=== PATIENT | male | born 1955 | race Caucasian/White ===

== ENCOUNTER 2017-04-30 15:39 | Inpatient (IN) | payer SELFPAY ==
[~2017-04-30] VITALS: Ht 185.4 cm; Wt 123.3 kg
[2017-04-30 15:43] VITALS: BP 143/92; PULSE 83; RESP 20; TEMP 98.5; O2SAT 93
--- NOTE | 2017-04-30 16:46 | RADRPT ---
EXAM DATE/TIME: 04/30/2017 16:28 [place] COMPARISON: No previous studies available for comparison. INDICATIONS : Very short of breath, smoker, no chest surgery MEDICAL HISTORY : None. SURGICAL HISTORY : Tonsillectomy. ENCOUNTER: Initial ACUITY: 2 weeks PAIN SCORE: 0/10 LOCATION: Bilateral chest FINDINGS: Frontal and lateral views of the chest demonstrates cardiac silhouette size at the upper limits for n ormal. No effusion, consolidation, or pneumothorax is identified. There is interstitial prominence. B ones and soft tissues demonstrate no acute finding. There are mild degenerative changes of the thorac ic spine. CONCLUSION: No acute cardiopulmonary abnormality is identified. Manolo King MD on April 30, 2017 at 16:43 Board Certified Radiologist. This report was verified electronically.
[2017-04-30 17:26] LABS: BASOPHIL # 0.1 TH/MM3 (0-0.2); BASOPHIL % 0.6 % (0.0-2.0); EOSINOPHIL # 0.1 TH/MM3 (0-0.4); EOSINOPHIL % 0.9 % (0.0-4.0); HEMATOCRIT 51.4 % (39.0-51.0); HEMO FLAGS DIFF FINAL; LYMPH % 14.8 % (9.0-44.0); LYMPHOCYTE # 1.4 TH/MM3 (1.0-4.8); MEAN CELL VOLUME 88.2 FL (80.0-100.0); MEAN CORPUSCULAR HEMOGLOBIN 28.7 PG (27.0-34.0); MEAN CORPUSCULAR HGB CONC 32.5 % (32.0-36.0); MONO % 8.5 % (0.0-8.0); NEUT % 75.2 % (16.0-70.0); PLATELET COUNT 206 TH/MM3 (150-450); RED BLOOD COUNT 5.82 MIL/MM3 (4.50-5.90); RED CELL DISTRIBUTION WIDTH 15.6 % (11.6-17.2); WHITE BLOOD COUNT 9.4 TH/MM3 (4.0-11.0)
[2017-04-30 17:35] LABS: INTERNATIONAL NORMALIZED RATIO 1.2 RATIO; PROTHROMBIN TIME - PATIENT 12.9 SEC (9.8-11.6)
[2017-04-30 17:51] LABS: ANION GAP 8 MEQ/L (5-15); AST (GOT) 18 U/L (15-37); BICARBONATE 31.5 MEQ/L (21.0-32.0); BLOOD UREA NITROGEN 24 MG/DL (7-18); CHLORIDE 102 MEQ/L (98-107); POTASSIUM 3.6 MEQ/L (3.5-5.1); SODIUM (NA) 141 MEQ/L (136-145)
[2017-04-30 17:52] LABS: GLOMERULAR FILTRATION RATE 73 ML/MIN (>89)
[2017-04-30 17:56] LABS: ALKALINE PHOSPHATASE 87 U/L (45-117); ALT (GPT) 20 U/L (12-78); TOTAL BILIRUBIN ADULT 0.7 MG/DL (0.2-1.0)
[2017-04-30 17:59] LABS: CREATINE KINASE 84 U/L (39-308)
--- NOTE | 2017-04-30 18:26 | PD ---
HPI . Leg swelling Chief Complaint: Skin Problem Time Seen by Provider: 18:12 Travel History International Travel<30 days: No Contact w/Intl Traveler<30days: No Traveled to known affect area: No History of Present Illness HPI This patient presents with the chief complaint of pain and swelling of his left lower extremity. Onset was 3 weeks ago. He states that it started as a big blister on his left banks. He states that it felt like a burn so he thought that it was a burn. He treated it with antibiotic ointment. He has subsequently developed redness and swelling of the lower part of the left lower leg. He finally presented himself to an urgent care center today for evaluation. They instructed him to come to the emergency department for further evaluation. The pain is described as a burning sensation and is rated 8 /10. In addition, the patient has had increased lower extremity edema and shortness of breath for the last 2-3 weeks. The patient admits that he has been noncompliant with his blood pressure medication for about the last 5 months. He states that he just did not have the finances for the medication. [facility] Past Medical History Cardiovascular Problems: Yes (HTN) Triglycerides - High: Yes Social History Alcohol Use: No Tobacco Use: Yes (1 ppd) Substance Use: No Allergies-Medications (Allergen,Severity, Reaction): Coded Allergies: No Known Allergies (Unverified , 04/30/17) Reported Meds & Prescriptions Reported Meds & Active Scripts Active No Active Prescriptions or Reported Medications Review of Systems Except as stated in HPI: all other systems reviewed are Neg General / Constitutional: No: Fever, Chills Cardiovascular: No: Chest Pain or Discomfort Respiratory: Positive: Shortness of Breath Musculoskeletal: Positive: Edema Skin: Positive Change in Pigmentation Physical Exam Narrative GENERAL: Patient is awake and alert. He has dyspnea with speaking. SKIN: warm/dry. He has erythema, warmth and swelling of his left lower extremity. There is an area in the center of the erythema compatible with a recent blister. It is intact but it is now flat. HEAD: Normocephalic. Atraumatic. EYES: Pupils equal and round. No scleral icterus. No injection or drainage. ENT: No nasal bleeding or discharge. Mucous membranes pink and moist. NECK: Trachea midline. Full range of motion without pain.. CARDIOVASCULAR: Regular rate and rhythm. Heart sounds are normal. RESPIRATORY: No accessory muscle use. Diffuse expiratory wheezing.. Breath sounds equal bilaterally. GASTROINTESTINAL: Abdomen soft. Nontender. Bowel sounds present. Nondistended. MUSCULOSKELETAL: No obvious deformities. 2+ pretibial pitting edema. NEUROLOGICAL: Awake and alert. No obvious cranial nerve deficits. Motor grossly within normal limits. Normal speech. PSYCHIATRIC: Appropriate mood and affect; insight and judgment normal. Data Data Last Documented VS Vital Signs Date Time Temp Pulse Resp B/P (MAP) Pulse Ox O2 Delivery O2 Flow Rate FiO2 04/30/17 18:13 76 18 04/30/17 15:43 98.5 143/92 (109) 93 Room Air Orders Orders Complete Blood Count With Diff (04/30/17 16:08) Comprehensive Metabolic Panel (04/30/17 16:08) B-Type Natriuretic Peptide (04/30/17 16:08) Prothrombin Time / Inr (Pt) (04/30/17 16:08) Ckmb (Isoenzyme) Profile (04/30/17 16:08) Troponin I (04/30/17 16:08) Chest, Pa & Lat (04/30/17 16:08) Electrocardiogram (04/30/17 ) Clindamycin Inj (Cleocin Inj) (04/30/17 18:30) Heparin Infusion PILAR.Q1H (04/30/17 18:19) Heparin Inj (Heparin Inj) (04/30/17 18:30) Heparin Inj (Heparin Inj) (05/01/17 00:30) Heparin Inj (Heparin Inj) (05/01/17 00:30) Heparin-D5w 25,000 U/250 Ml (Heparin-D5w (04/30/17 18:30) Act Partial Throm Time (Ptt) (04/30/17 18:19) Cbc No Diff, Includes Plts (05/03/17 06:00) Act Partial Throm Time (Ptt) (05/01/17 01:19) Occult Blood (Hemoccult) Stool (04/30/17 18:19) Aspirin Chew (Aspirin Chew) (04/30/17 18:30) Metoprolol Succinate Er (Toprol Xl) (04/30/17 18:30) Nitroglycerin 2% Oint (Nitroglycerin 2% (04/30/17 18:30) Admit Order (Ed Use Only) (04/30/17 ) Service Team Leader / Telemetry PILAR.Q8H (04/30/17 18:32) Vital Signs (Adult) Q4H (04/30/17 18:32) Diet Npo (04/30/17 Dinner) Diet Heart Healthy (04/30/17 Dinner) Activity Oob With Assistance (04/30/17 18:32) Notify Dr: Other (04/30/17 18:32) Labs Laboratory Tests Test 04/30/17 17:00 04/30/17 18:33 White Blood Count 9.4 TH/MM3 Red Blood Count 5.82 MIL/MM3 Hemoglobin 16.7 GM/DL Hematocrit 51.4 % Mean Corpuscular Volume 88.2 FL Mean Corpuscular Hemoglobin 28.7 PG Mean Corpuscular Hemoglobin Concent 32.5 % Red Cell Distribution Width 15.6 % Platelet Count 206 TH/MM3 Mean Platelet Volume 8.6 FL Neutrophils (%) (Auto) 75.2 % Lymphocytes (%) (Auto) 14.8 % Monocytes (%) (Auto) 8.5 % Eosinophils (%) (Auto) 0.9 % Basophils (%) (Auto) 0.6 % Neutrophils # (Auto) 7.0 TH/MM3 Lymphocytes # (Auto) 1.4 TH/MM3 Monocytes # (Auto) 0.8 TH/MM3 Eosinophils # (Auto) 0.1 TH/MM3 Basophils # (Auto) 0.1 TH/MM3 CBC Comment DIFF FINAL Differential Comment Prothrombin Time 12.9 SEC Prothromb Time International Ratio 1.2 RATIO Blood Urea Nitrogen 24 MG/DL Creatinine 1.04 MG/DL Random Glucose 119 MG/DL Total Protein 6.5 GM/DL Albumin 2.7 GM/DL Calcium Level 8.6 MG/DL Alkaline Phosphatase 87 U/L Aspartate Amino Transf (AST/SGOT) 18 U/L Alanine Aminotransferase (ALT/SGPT) 20 U/L Total Bilirubin 0.7 MG/DL Sodium Level 141 MEQ/L Potassium Level 3.6 MEQ/L Chloride Level 102 MEQ/L Carbon Dioxide Level 31.5 MEQ/L Anion Gap 8 MEQ/L Estimat Glomerular Filtration Rate 73 ML/MIN Total Creatine Kinase 84 U/L Troponin I 0.27 NG/ML MDM Medical Decision Making Medical Screen Exam Complete: Yes Emergency Medical Condition: Yes Interpretation(s) EKG shows a sinus rhythm with no acute ST segment elevation or depression. Differential Diagnosis My differential diagnosis includes but is not limited to localized wound infection, cellulitis, abscess Differential diagnosis of dyspnea includes but is not limited to congestive heart failure, pneumonia, wheezing, pneumothorax, pulmonary embolism Narrative Course This patient presents with 2 problems. The first is redness and swelling of his left lower extremity. His second problem is dyspnea and lower extremity edema. Both of these problems have been ongoing for the last 2-3 weeks. Both have been getting progressively worse. CBC & BMP Diagram 04/30/17 17:00 Total Protein 6.5, Albumin 2.7 L, Calcium Level 8.6, Alkaline Phosphatase 87, Aspartate Amino Transf (AST/SGOT) 18, Alanine Aminotransferase (ALT/SGPT) 20, Total Bilirubin 0.7 trop 0.27 CK 84 I have ordered clindamycin for the cellulitis. I have given him aspirin and started a heparin drip. Oral metoprolol has been ordered as well as Nitropaste. Physician Communication Physician Communication Dr. Eduardo, cardiology, asks for heparin, aspirin, beta prema, nitro and admit to medicine with consult to cardiology. Diagnosis Primary Impression: Elevated troponin Additional Impressions: Dyspnea Qualified Codes: R06.00 - Dyspnea, unspecified Peripheral edema Cellulitis of left leg Admitting Information Admitting Physician Requests: Admit Scripts No Active Prescriptions or Reported Meds Condition: Stable Eli Cuhn MD Apr 30, 2017 18:26
[2017-04-30] MEDS ORDERED: METOPROLOL SUCCINATE 50 MG EXTENDED RELEASE TAB PO ONE (18:30)
[2017-04-30] MEDS ORDERED: HEPARIN-D5W 25,000 U/250 ML 250 ML IV PRN ×2 (18:30→19:45)
[2017-04-30] MEDS ORDERED: ASPIRIN 81 MG CHEW TAB CHEW ONE (18:30)
[2017-04-30] MEDS ORDERED: CLINDAMYCIN INJ 600 MG in SODIUM CHLORIDE 0.9% INJ 100 ML IV ONE (18:30)
[2017-04-30] MEDS ORDERED: NITROGLYCERIN 2% OINT 1 GM PACKET TOPICAL ONE (18:30)
[2017-04-30] MEDS ORDERED: HEPARIN SODIUM - IV 10,000 UNITS/10 ML VIAL IV PUSH ONE (18:30)
[2017-04-30 19:14] LABS: APTT (PATIENT) 26.9 SEC (24.3-30.1)
[2017-04-30] MEDS: HEPARIN SODIUM - IV 10,000 UNITS/10 ML VIAL IV PUSH PRN (19:47)
[2017-04-30 20:00] VITALS: BP 110/69; PULSE 78; RESP 22; TEMP 98.3; O2SAT 96
[2017-04-30] MEDS ORDERED: NALOXONE HCL 0.4 MG/ML AMP IV PUSH PRN (20:45)
[2017-04-30] MEDS ORDERED: SODIUM CHLORIDE 0.9% FLUSH 10 ML FLUSH IV FLUSH PRN (20:45)
[2017-04-30] MEDS: SODIUM CHLORIDE 0.9% FLUSH 10 ML FLUSH IV FLUSH SCH (21:00)
[2017-04-30 21:05] VITALS: PULSE 67
[2017-05-01] VITALS (10 sets, daily range): BP systolic 115–132; BP diastolic 67–96; PULSE 66–99; RESP 18–22; TEMP 97.4–98.3; O2SAT 91–97
[2017-05-01] MEDS ORDERED: HEPARIN SODIUM - IV 10,000 UNITS/10 ML VIAL IV PUSH PRN (00:30)
[2017-05-01 03:41] LABS: AUTOMATED NEUTROPHIL # 5.3 TH/MM3 (1.8-7.7); BASOPHIL # 0.1 TH/MM3 (0-0.2); BASOPHIL % 0.7 % (0.0-2.0); EOSINOPHIL # 0.1 TH/MM3 (0-0.4); EOSINOPHIL % 1.3 % (0.0-4.0); HEMO FLAGS DIFF FINAL; LYMPH % 19.6 % (9.0-44.0); LYMPHOCYTE # 1.5 TH/MM3 (1.0-4.8); MEAN CELL VOLUME 88.4 FL (80.0-100.0); MEAN CORPUSCULAR HEMOGLOBIN 29.3 PG (27.0-34.0); MEAN CORPUSCULAR HGB CONC 33.1 % (32.0-36.0); MONO % 10.7 % (0.0-8.0); NEUT % 67.7 % (16.0-70.0); PLATELET COUNT 205 TH/MM3 (150-450); RED BLOOD COUNT 5.66 MIL/MM3 (4.50-5.90); RED CELL DISTRIBUTION WIDTH 15.4 % (11.6-17.2); WHITE BLOOD COUNT 7.9 TH/MM3 (4.0-11.0)
[2017-05-01 04:10] LABS: BICARBONATE 30.5 MEQ/L (21.0-32.0); POTASSIUM 3.9 MEQ/L (3.5-5.1)
[2017-05-01] MEDS: HEPARIN SODIUM - IV 10,000 UNITS/10 ML VIAL IV PUSH PRN (04:23)
--- NOTE | 2017-05-01 08:21 | HHI.HP ---
[facility] Service [facility] Primary Care Physician No Primary Care Physician Admission Diagnosis elevated trop, dyspnea, peripheral edema, cellulitis LLE Diagnoses: (1) new onse CHF Diagnosis: Principal (2) Cellulitis of left leg Diagnosis: Principal (3) Elevated troponin Diagnosis: Principal Chief Complaint: Bilateral leg swelling with shortness of breath Travel History International Travel<30 Days: No Contact w/Intl Traveler <30 Da: No Traveled to Known Affected Are: No History of Present Illness Patient is a 61-year-old male obese nonsmoker for the past 40 years presented to the emergency room complaining complaining of 3 weeks duration of bilateral leg swelling. LATER noted a blister on the left lower leg which he described as some labeled with colorless clear fluid inside. Gradually with increasing redness around the area and progressed to the entire left lower extremity up to the ankle area. Patient also complains of decreased energy feeling shortness of breath with minimal activity. Persistence of above signs and symptoms prompted consult to an urgent care clinic where he was advised to come to the emergency room for further evaluation. Patient denies any chest pains. Patient denies any orthopnea. Denies any fever or chills. On evaluation exam shows extensive erythema of the left lower extremity with of 3" x 2" dry scab. Patient admitted for further evaluation and management. Review of Systems Constitutional: COMPLAINS OF: Weight gain (over the years) Endocrine: DENIES: Heat/cold intolerance, Polydipsia, Polyuria, Polyphagia Eyes: DENIES: Blurred vision, Diplopia, Eye inflammation, Eye pain, Vision loss , Photosensitivity, Double Vision Ears, nose, mouth, throat: DENIES: Tinnitus, Hearing loss, Vertigo, Nasal discharge, Oral lesions, Throat pain, Hoarseness, Ear Pain, Running Nose, Epistaxis, Sinus Pain, Toothache, Odynophagia Respiratory: COMPLAINS OF: Wheezing (feels occasional wheezing) Cardiovascular: COMPLAINS OF: Dyspnea on Exertion, Lower Extremity Edema Gastrointestinal: DENIES: Abdominal pain, Black stools, Bloody stools, Constipation, Diarrhea, Nausea, Vomiting, Difficulty Swallowing, Anorexia Genitourinary: DENIES: Sexual dysfunction, Urinary frequency, Urinary incontinence, Urgency, Hematuria, Dysuria, Nocturia, Penile Discharge, Testicular Pain, Testicular Swelling Musculoskeletal: DENIES: Joint pain, Muscle aches, Stiffness, Joint Swelling, Back pain, Neck pain Integumentary: DENIES: Abnormal pigmentation, Nail changes, Pruritus, Rash Hematologic/lymphatic: DENIES: Bruising, Lymphadenopathy Immunologic/allergic: DENIES: Eczema, Urticaria Neurologic: DENIES: Abnormal gait, Headache, Localized weakness, Paresthesias, Seizures, Speech Problems, Tremor, Poor Balance Psychiatric: DENIES: Anxiety, Confusion, Mood changes, Depression, Hallucinations, Agitation, Suicidal Ideation, Homicidal Ideation, Delusions Past Family Social History Past Medical History History of hypertension diagnosed about the 2 years ago. She was present medications sounds like hydrochlorothiazide/lisinopril but he stopped taking this for the past 6 months. Denies any history of CVA COPD COPD Past Surgical History Tonsillectomy Reported Medications At one point was on hydrochlorothiazide, lisinopril which he stopped taking for the past 6 months Allergies: Coded Allergies: No Known Allergies (Unverified , 04/30/17) Family History Denies any family history of hypertension, CVA, CAD, diabetes mellitus Social History Smoker one pack per day for the past 40 years Very rare alcohol use Denies any polysubstance abuse Physical Exam Vital Signs Vital Signs Date Time Temp Pulse Resp B/P (MAP) Pulse Ox O2 Delivery O2 Flow Rate FiO2 05/01/17 04:00 98.3 99 22 132/96 (108) 95 05/01/17 00:00 97.4 71 22 126/87 (100) 94 04/30/17 21:05 67 04/30/17 20:03 04/30/17 20:00 98.3 78 22 110/69 (83) 96 04/30/17 18:13 76 18 04/30/17 15:43 98.5 83 20 143/92 (109) 93 Room Air Physical Exam GENERAL: Obese in no apparent distress. HEAD: Atraumatic. Normocephalic. No temporal or scalp tenderness. EYES: Pupils equal round and reactive. Extraocular motions intact. No scleral icterus. No injection or drainage. ENT: Nose without bleeding,Throat without erythema, tonsillar hypertrophy or exudate. Uvula midline. Airway patent. NECK: Trachea midline. No JVD or lymphadenopathy. Supple, nontender, no meningeal signs. CARDIOVASCULAR: Regular rate and rhythm without murmurs, gallops, or rubs. RESPIRATORY bilateral breath sounds equal very occasional inspiratory wheeze, no Rales GASTROINTESTINAL: Abdomen soft, non-tender, nondistended. Positive umbilical hernia good bowel sounds, no scrotal hernia MUSCULOSKELETAL": Bilateral lower extremity edema +1 extending to the feet with erythema left lower extremity with 3" x 2" oval-shaped superficial wound with extensive surrounding erythema. +2 peripheral pulses EUROLOGICAL: Awake and alert. Cranial nerves II through XII intact. Motor and sensory grossly within normal limits. Five out of 5 muscle strength in all muscle groups. Normal speech. Laboratory Laboratory Tests Test 04/30/17 17:00 04/30/17 18:33 04/30/17 23:21 05/01/17 03:17 White Blood Count 9.4 7.9 Red Blood Count 5.82 5.66 Hemoglobin 16.7 16.5 Hematocrit 51.4 50.0 Mean Corpuscular Volume 88.2 88.4 Mean Corpuscular Hemoglobin 28.7 29.3 Mean Corpuscular Hemoglobin Concent 32.5 33.1 Red Cell Distribution Width 15.6 15.4 Platelet Count 206 205 Mean Platelet Volume 8.6 9.1 Neutrophils (%) (Auto) 75.2 67.7 Lymphocytes (%) (Auto) 14.8 19.6 Monocytes (%) (Auto) 8.5 10.7 Eosinophils (%) (Auto) 0.9 1.3 Basophils (%) (Auto) 0.6 0.7 Neutrophils # (Auto) 7.0 5.3 Lymphocytes # (Auto) 1.4 1.5 Monocytes # (Auto) 0.8 0.8 Eosinophils # (Auto) 0.1 0.1 Basophils # (Auto) 0.1 0.1 CBC Comment DIFF FINAL DIFF FINAL Differential Comment Prothrombin Time 12.9 Prothromb Time International Ratio 1.2 Blood Urea Nitrogen 24 31 Creatinine 1.04 0.84 Random Glucose 119 109 Total Protein 6.5 Albumin 2.7 Calcium Level 8.6 8.5 Alkaline Phosphatase 87 Aspartate Amino Transf (AST/SGOT) 18 Alanine Aminotransferase (ALT/SGPT) 20 Total Bilirubin 0.7 Sodium Level 141 141 Potassium Level 3.6 3.9 Chloride Level 102 103 Carbon Dioxide Level 31.5 30.5 Anion Gap 8 8 Estimat Glomerular Filtration Rate 73 94 Total Creatine Kinase 84 102 91 Troponin I 0.27 0.30 0.28 B-Type Natriuretic Peptide 919 Activated Partial Thromboplast Time 26.9 29.0 Result Diagram: 05/01/1731605/01/17316 Imaging Last Impressions Chest X-Ray 04/30/17 1608 Signed Impressions: Service Date/Time: Sunday, April 30, 2017 16:28 - CONCLUSION: No acute cardiopulmonary abnormality is identified. Manolo King MD 12-lead EKG shows sinus rhythm with diffuse ST-T wave changes nonspecific QS waves in V1 to V3, occasional PVC Septic Shock Reassessment Heart: Regular rate and rhythm Lungs: Clear Skin: Warm Peripheral Pulses: Bounding Right Radial Bounding Left Radial Bounding Right Popliteal Bounding Left Popliteal Bounding Right Dorsalis Pedis Bounding Left Dorsalis Pedis Bounding Right Posterior Tibial Bounding Left Posterior Tibial Capillary Refill: Brisk Caprini VTE Risk Assessment Caprini VTE Risk Assessment: Mod/High Risk (score >= 2) VTE [facility] Contraindication: LE injury/wound Caprini Risk Assessment Model Point Value = 1 Point Value = 2 Point Value = 3 Point Value = 5 Age 41-60 Minor surgery BMI > 25 kg/m2 Swollen legs Varicose veins or History of unexplained or recurrent spontaneous Oral contraceptives or hormone replacement Sepsis (< 1 month) Serious lung disease, including pneumonia (< 1 month) Abnormal pulmonary function Acute myocardial infarction Congestive heart failure (< 1 month) History of inflammatory bowel disease Medical patient at bed rest Age 61-74 Arthroscopic surgery Major open surgery (> 45 min) Laparoscopic surgery (> 45 min) Malignancy Confined to bed (> 72 hours) Immobilizing plaster cast Central venous access Age >= 75 History of VTE Family history of VTE Factor V Leiden Prothrombin [id number] Lupus anticoagulant Anticardiolipin antibodies Elevated serum homocysteine Heparin-induced thrombocytopenia Other congenital or acquired thrombophilia Stroke (< 1 month) Elective arthroplasty Hip, pelvis, or leg fracture Acute spinal cord injury (< 1 month) Prophylaxis Regimen Total Risk Factor Score Risk Level Prophylaxis Regimen 0-1 Low Early ambulation 2 Moderate Order ONE of the following: *Sequential Compression Device (SCD) *Heparin 5000 units SQ BID 3-4 Higher Order ONE of the following medications: *Heparin 5000 units SQ TID *Enoxaparin/Lovenox 40 mg SQ daily (WT < 150 kg, CrCl > 30 mL/min) *Enoxaparin/Lovenox 30 mg SQ daily (WT < 150 kg, CrCl > 10-29 mL/min) *Enoxaparin/Lovenox 30 mg SQ BID (WT < 150 kg, CrCl > 30 mL/min) AND/OR *Sequential Compression Device (SCD) 5 or more Highest Order ONE of the following medications: *Heparin 5000 units SQ TID (Preferred with Epidurals) *Enoxaparin/Lovenox 40 mg SQ daily (WT < 150 kg, CrCl > 30 mL/min) *Enoxaparin/Lovenox 30 mg SQ daily (WT < 150 kg, CrCl > 10-29 mL/min) *Enoxaparin/Lovenox 30 mg SQ BID (WT < 150 kg, CrCl > 30 mL/min) AND *Sequential Compression Device (SCD) Assessment and Plan Assessment and Plan 61-year-old male presenting with increasing shortness of breath for the past 3 weeks associated with bilateral lower extremity edema with elevated troponin, smoker Left lower extremity extensive cellulitis with dry open superficial wound Will start patient on cefazolin 2 g every 8 Will get infectious disease involved Wound care team consult Will need to control bilateral lower extremity edema New Onset CHF likely secondary to longstanding hypertension r/o underlying CAD Elevated troponin likely secondary to CHF r/o underlying CAD History of hypertension noncompliant with meds We'll get 2-D echo- Cardiology consult to rule out underlying CAD- will defer to them to proceed with myocardial perfusion study versus cardiac catheterization Will start patient on Lasix IV 40 mg every 12 Start patient on AYE inhibitor- Lisinopril 10 mg po daily Patient started on heparin drip.- Will change to Lovenox subcutaneous twice a day. Daily weights. start ASA. check lipid panel Underlying COPD- exacerbation- mild - maybe from CHF component with likely RLD with obesity duonebs q 4 check ABG- check for C02 retention continue on 02 2LNC Morbid obesity BMI of 36.4 Consult dietitian for nutrition counseling patient very motivated with exercise and weight reduction Discussed with patient extensively DVT prophylaxis on Lovenox for above. Discussed Condition With Full code Physician Certification 2 Midnight Certification Type: Admission for Inpatient Services Order for Inpatient Services The services are ordered in accordance with Medicare regulations or non- Medicare payer requirements, as applicable. In the case of services not specified as inpatient-only, they are appropriately provided as inpatient services in accordance with the 2-midnight benchmark. Estimated LOS (days): 3 days is the estimated time the patient will need to remain in the hospital, assuming treatment plan goals are met and no additional complications. Post-Hospital Plan: Marychuy Darby MD May 01, 2017 08:21
[2017-05-01] MEDS: SODIUM CHLORIDE 0.9% FLUSH 10 ML FLUSH IV FLUSH SCH ×2 (09:00→21:01)
[2017-05-01] MEDS: ASPIRIN 81 MG CHEW TAB CHEW SCH (09:00)
[2017-05-01 09:15] LABS: BLOOD GAS BASE EXCESS 5.8 mmol/L (-2-2); BLOOD GAS CARBOXYHEMOGLOBIN 2.5 % (0-4); BLOOD GAS HCO3 32 mmol/L (22-26); BLOOD GAS METHEMOGLOBIN 0.7 % (0-2); BLOOD GAS O2 HGB SATURATION 91 % (90-100); BLOOD GAS OXYGEN CONTENT 22.1 Vol % (12.0-20.0); BLOOD GAS PCO2 63 mmHg (38-42); BLOOD GAS PO2 80 mmHg (61-120); BLOOD GAS TOTAL HGB 17.3 G/DL (12.0-16.0); TEMP CORR TO 98.6
[2017-05-01] MEDS: RESP: ALBUTEROL 2.5 MG/IPRATROPIUM 0.5 MG NEB (SCH) NEB ×4 (09:15→19:31)
[2017-05-01 09:16] LABS: CRITICAL VALUE YES; DRAW SITE RT RADIAL; FIO2 28 %; LITER FLOW 2 L/M; NUMBER OF ARTERIAL PUNCTURES 1; OXYGEN DEVICE Y; STAT YES; ULNAR PULSE PRESENT
--- NOTE | 2017-05-01 09:30 | EKG ---
Date Performed: 05/01/2017 Time Performed: 05:14:24 PTAGE: 61 years EKG: Possible ectopic atrial rhythm with PVC(s) Prolonged QT interval Possible anteroseptal infa rct - age undetermined Lateral T wave changes may be due to myocardial ischemia Low QRS voltages in l imb leads Abnormal ECG PREVIOUS TRACING : 04/30/2017 22.38 DOCTOR: Osmar Simpson Interpretating Date/Time 05/01/2017 09:29:45
--- NOTE | 2017-05-01 09:38 | EKG ---
Date Performed: 04/30/2017 Time Performed: 22:38:18 PTAGE: 61 years EKG: Sinus rhythm WITH SHORT ME INTERVAL WITH OCCASIONAL VENTRICULAR PREMATURE COMPLEXES ANTEROSEPTAL MYOCARDIAL INFAR CTION , OF INDETERMINATE AGE ABNORMAL ECG PREVIOUS TRACING : 04/30/2017 18.26 DOCTOR: Osmar Simpson Interpretating Date/Time 05/01/2017 09:34:42
--- NOTE | 2017-05-01 09:47 | EKG ---
Date Performed: 04/30/2017 Time Performed: 18:26:02 PTAGE: 61 years EKG: ECTOPIC ATRIAL RHYTHM WITH FIRST DEGREE AV BLOCK POSSIBLE LEFT ATRIAL ENLARGEMENT LOW QRS V OLTAGE IN EXTREMITY LEADS ANTEROSEPTAL MYOCARDIAL INFARCTION ABNORMAL ECG NO PREVIOUS TRACING DOCTOR: Osmar Simpson Interpretating Date/Time 05/01/2017 09:46:27
--- NOTE | 2017-05-01 09:57 | MB ---
cc: NETO READ DATE OF CONSULTATION 05/01/2017 REASON FOR CONSULTATION Mr. Ying is a 61-year-old white male with a history of obesity, hypertension and smoking. He has had increased lower extremity edema, progressive dyspnea, PND and orthopnea over the last three weeks. He has not had any chest pain. He has no previous cardiac history. He has had left lower extremity wounds and erythema. He has not seen many doctors. PAST MEDICAL AND SURGICAL HISTORY 1. Hypertension. He was previously on hydrochlorothiazide and Lisinopril, but stopped taking the Lisinopril about seven months ago. 2. Tonsillectomy. 3. No history of diabetes mellitus, dyslipidemia, coronary disease or CVA. 4. History of morbid obesity. MEDICATIONS Hydrochlorothiazide ALLERGIES None SOCIAL HISTORY The patient is a smoker. He drinks alcohol infrequently, but when he drinks, he drinks heavily. He is accompanied by his female friend. FAMILY HISTORY Negative for heart disease. REVIEW OF SYSTEMS Otherwise negative. PHYSICAL EXAMINATION Blood pressure 115/81, pulse 73. HEAD, EYES, EARS, NOSE, AND THROAT: Negative. NECK: 2+ carotid upstrokes. No bruits. LUNGS: Decreased breath sounds bilaterally. HEART: Regular. No murmur, gallop or rub. Distant tones. ABDOMEN: Soft, very obese. No bruits. Positive umbilical hernia. EXTREMITIES: With 2+ pitting edema. There is left lower extremity edema. 1-2+ pulses noted. NEUROLOGIC: Grossly nonfocal. EKG was reviewed and showed a normal sinus rhythm, normal axis, poor R-wave progression in the pericardial leads and diffuse T-wave changes. LABORATORY DATA Hemoglobin 16.5, potassium 3.9, creatinine 0.8, troponin 0.27, 0.27, 0.30 and 4.28. BNP 919. DIAGNOSIS 1. Acute congestive heart failure 2. Mild troponin elevation 3. Morbid obesity 4. Noncompliance with medical care. 5. Hypertension DISPOSITION Mr. Ying will be monitored on telemetry. We will continue IV diuresis closely monitoring his renal function and electrolytes. We will obtain echocardiogram to evaluate his left ventricle function. He will be scheduled for adenosine myocardial perfusion study tomorrow to evaluate for ischemia. The plan was discussed with the patient and his friend. MD MAGUE Rodrigues/DJOsvaldo /9:37 AM /9:47 AM MTDPreet
[2017-05-01] MEDS: LISINOPRIL 10 MG TAB PO SCH (10:20)
[2017-05-01] MEDS: FUROSEMIDE 40 MG/4 ML VIAL IV PUSH SCH ×2 (10:21→18:27)
[2017-05-01] MEDS: ceFAZolin 2 GM PREMIX 50 ML IV SCH ×2 (10:26→18:26)
[2017-05-01] MEDS: ENOXAPARIN SODIUM 120 MG/0.8 ML SYRINGE SQ SCH ×2 (13:19→21:01)
--- NOTE | 2017-05-01 14:40 | PD.WCN.NOT ---
Wound Consult Description: Received consult from Doctor Burgess for wound management of L lower extremity Communicated with: NETTA maloney and Doctor Burgess Recommendation: Please leave scab on L lower extremity open to air Elevate bilateral lower extremities to reduce edema Additional Information: Patient seen on 4 north for evaluation of wound management of L lower extremity. Patient is observed laying in bed.Bilateral lower extremities present with edema R worse than L,and tight, shiny, hairless skin. L leg presents with dry intact scab that is without drainage.Periwound is without heat , and induration. Intact bulla is noted to periwound at 3 o'clock to periwound, that appears to be resolving. L leg is also noted with erythema that has decreased from line drawn on leg.Pedal pulses are non palpable bilaterally, NETTA Shaw heard with Doppler.Left scab and bulla on L lower extremity open to air. Recommendations are noted above. Audrey Gallardo [facility] May 01, 2017 14:40
--- NOTE | 2017-05-01 18:34 | PD.ID.CON ---
History of Present Illness Service ID Consult Requested By Dr Burgess Primary Care Physician No Primary Care Physician Diagnoses: History of Present Illness 61 yo obese male with chronic BLE edema presented with swollen, red tender LLE x 2 weeks He apparently has a blister on that extremety that is now drying out He stattes his swelling , redness improved He was found to have acute heart failure and now undergoing cardiological w/u He ia afebrile for the duration of admission and WBC is normal Receiving cefaoline Review of Systems Respiratory: COMPLAINS OF: Shortness of breath Cardiovascular: COMPLAINS OF: Dyspnea on Exertion, Lower Extremity Edema Except as stated in HPI: all other systems reviewed are Neg Past Family Social History Allergies: Coded Allergies: No Known Allergies (Unverified , 04/30/17) Past Medical History 1. Hypertension. He was previously on hydrochlorothiazide and Lisinopril, but stopped taking the Lisinopril about seven months ago. 2. morbid obesity. Past Surgical History Tonsillectomy. Active Ordered Medications Medications where reviewed in EMR Antibiotics Include: cefazoline Family History reviewd non contributory to sandrine irby Social History The patient is a smoker 1 PPD. He drinks alcohol infrequently, but when he drinks, he drinks heavily. NO illicits Physical Exam Vital Signs Vital Signs Date Time Temp Pulse Resp B/P (MAP) Pulse Ox O2 Delivery O2 Flow Rate FiO2 05/01/17 16:00 97.8 67 20 127/78 (94) 94 05/01/17 12:30 91 21 05/01/17 12:00 97.7 66 20 120/77 (91) 94 05/01/17 08:05 68 05/01/17 08:00 68 05/01/17 08:00 97.7 73 22 115/81 (92) 93 05/01/17 04:00 98.3 99 22 132/96 (108) 95 05/01/17 00:00 97.4 71 22 126/87 (100) 94 04/30/17 21:05 67 04/30/17 20:03 04/30/17 20:00 98.3 78 22 110/69 (83) 96 Physical Exam CONSTITUTIONAL/GENERAL: This is a obese middle aged male patient, in no apparent distress. TUBES/LINES/DRAINS: SKIN: No jaundice, rashes, or lesions. Skin temperature appropriate. Not diaphoretic. HEAD: Atraumatic. Normocephalic. EYES: Pupils equal and round and reactive. Extraocular motions intact. No scleral icterus. No injection or drainage. Fundi not examined. ENT: Hearing grossly normal. Nose without bleeding or purulent drainage. Oral mucosae without visible erythema, exudates, masses, or lesions. NECK: Trachea midline. Supple, nontender. No palpable thyroid enlargement or nodularity. CARDIOVASCULAR: Regular rate and rhythm without murmurs, gallops, or rubs. No JVD. Peripheral pulses symmetric. RESPIRATORY/CHEST: Symmetric, unlabored respirations. Clear to auscultation. Breath sounds equal bilaterally. No wheezes, rales, or rhonchi. GASTROINTESTINAL: Abdomen soft, non-tender, markedly distended. No hepato- splenomegaly, or palpable masses. No guarding. Bowel sounds present. GENITOURINARY: Without palpable bladder distension. MUSCULOSKELETAL: Extremities without clubbing, cyanosis, Marked BL LE edema more prominent on LLE + tree bark mars Dry crust over a shallow skin defect on L banks Resolving erythema . No joint tenderness or effusion noted. No calf tenderness. No mottling or clubbing. LYMPHATICS: No palpable cervical or supraclavicular adenopathy. NEUROLOGICAL: Awake and alert. Motor and sensory grossly within normal limits. Follows commands. Clear speech. Moves all extremities. PSYCHIATRIC: No obvious anxiety/depression. no apparent hallucinations or other psychotic thought process. Laboratory Laboratory Tests Test 04/30/17 23:21 05/01/17 03:17 05/01/17 09:05 Total Creatine Kinase 102 91 Troponin I 0.30 0.28 White Blood Count 7.9 Red Blood Count 5.66 Hemoglobin 16.5 Hematocrit 50.0 Mean Corpuscular Volume 88.4 Mean Corpuscular Hemoglobin 29.3 Mean Corpuscular Hemoglobin Concent 33.1 Red Cell Distribution Width 15.4 Platelet Count 205 Mean Platelet Volume 9.1 Neutrophils (%) (Auto) 67.7 Lymphocytes (%) (Auto) 19.6 Monocytes (%) (Auto) 10.7 Eosinophils (%) (Auto) 1.3 Basophils (%) (Auto) 0.7 Neutrophils # (Auto) 5.3 Lymphocytes # (Auto) 1.5 Monocytes # (Auto) 0.8 Eosinophils # (Auto) 0.1 Basophils # (Auto) 0.1 CBC Comment DIFF FINAL Differential Comment Activated Partial Thromboplast Time 29.0 Blood Urea Nitrogen 31 Creatinine 0.84 Random Glucose 109 Calcium Level 8.5 Sodium Level 141 Potassium Level 3.9 Chloride Level 103 Carbon Dioxide Level 30.5 Anion Gap 8 Estimat Glomerular Filtration Rate 94 Triglycerides Level 136 Cholesterol Level 163 LDL Cholesterol 97 HDL Cholesterol 39.0 Cholesterol/HDL Ratio 4.17 Blood Gas Puncture Site RT RADIAL Blood Gas Patient Temperature 98.6 Blood Gas HCO3 32 Blood Gas Base Excess 5.8 Blood Gas Oxygen Saturation 91 Arterial Blood pH 7.32 Arterial Blood Partial Pressure CO2 63 Arterial Blood Partial Pressure O2 80 Arterial Blood Oxygen Content 22.1 Arterial Blood Carboxyhemoglobin 2.5 Arterial Blood Methemoglobin 0.7 Blood Gas Hemoglobin 17.3 Oxygen Delivery Device Y Blood Gas Liter Flow 2 Blood Gas Inspired Oxygen 28 Result Diagram: 05/01/1731605/01/17316 Imaging Last Impressions Chest X-Ray 04/30/17 1608 Signed Impressions: Service Date/Time: Sunday, April 30, 2017 16:28 - CONCLUSION: No acute cardiopulmonary abnormality is identified. Manolo King MD Assessment and Plan Assessment and Plan LLE cellulits in the settings of BLE edema New onset CHF - cont Anncef - when ready for d/c will switch to oral abx (KJeflex) - MRSA coverae if fail to improve further/ worsning Rand Lnacaster MD May 01, 2017 18:33
--- NOTE | 2017-05-01 18:53 | ECHRPT ---
Indication: SOB CONCLUSIONS Moderately dilated left ventricle. Mild concentric left ventricular hypertrophy. The left ventricular systolic function is severely reduced with an estimated ejection fraction of 20 %. The right ventricular systoilc function is mildly decreased. BP: 115 / 81 HR: 73 Rhythm: MEASUREMENTS (Male / Female) Normal Values Technical Quality:Good 2D ECHO LV Diastolic Diameter PLAX 6.6 cm 4.2 - 5.9 / 3.9 - 5.3 cm LV Systolic Diameter PLAX 6.3 cm IVS Diastolic Thickness 1.4 cm 0.6 - 1.0 / 0.6 - 0.9 cm LVPW Diastolic Thickness 1.0 cm 0.6 - 1.0 / 0.6 - 0.9 cm LV Relative Wall Thickness 0.4 LA Systolic Diameter LX 4.9 cm 3.0 - 4.0 / 2.7 - 3.8 cm M-MODE Aortic Root Diameter MM 3.7 cm AV Cusp Separation MM 2.2 cm DOPPLER Mitral E Point Velocity 107.0 cm/s Mitral A Point Velocity 30.6 cm/s Mitral E to A Ratio 3.5 TR Peak Velocity 294.0 cm/s TR Peak Gradient 34.6 mmHg Right Atrial Pressure 20.0 mmHg Pulmonary Artery Systolic Pressu 54.6 mmHg Right Ventricular Systolic Press 54.6 mmHg FINDINGS LEFT VENTRICLE Moderately dilated left ventricle. Mild concentric left ventricular hypertrophy. The left ventricular systolic function is severely reduced with an estimated ejection fraction of 20 %. RIGHT VENTRICLE The right ventricular systoilc function is mildly decreased. LEFT ATRIUM The left atrial size is normal. RIGHT ATRIUM The right atrial size is normal. ATRIAL SEPTUM Normal atrial septal thickness without atrial level shunting by limited color doppler interrogation. AORTA The aortic root and proximal ascending aorta are normal in size on limited imaging. MITRAL VALVE Structurally normal mitral valve. No mitral valve stenosis or regurgitation. AORTIC VALVE Trileaflet aortic valve. No aortic valve stenosis or regurgitation. TRICUSPID VALVE Structurally normal tricuspid valve. No tricuspid valve stenosis or regurgitation. PULMONARY VALVE No pulmonary valve regurgitation or stenosis. VESSELS The inferior vena cava is normal in size. PERICARDIUM No pericardial effusion. Shelli Mandujano MD, FACC (Electronically Signed) Final Date:01 May 2017 18:53
[2017-05-02] VITALS (8 sets, daily range): BP systolic 118–150; BP diastolic 63–83; PULSE 70–80; RESP 14–24; TEMP 97.3–98.3; O2SAT 91–96
[2017-05-02] MEDS: ceFAZolin 2 GM PREMIX 50 ML IV SCH ×3 (02:24→17:41)
[2017-05-02] MEDS ORDERED: guaiFENesin SOLUTION 200 MG/10 ML CUP PO ONE (05:45)
[2017-05-02] MEDS ORDERED: RESP: ALBUTEROL 2.5 MG/IPRATROPIUM 0.5 MG NEB (PRN) NEB (05:45)
[2017-05-02] MEDS: RESP: ALBUTEROL 2.5 MG/IPRATROPIUM 0.5 MG NEB (SCH) NEB ×4 (08:56→19:48)
[2017-05-02] MEDS: ASPIRIN 81 MG CHEW TAB CHEW SCH (09:03)
[2017-05-02] MEDS: LISINOPRIL 10 MG TAB PO SCH (09:03)
[2017-05-02] MEDS: SODIUM CHLORIDE 0.9% FLUSH 10 ML FLUSH IV FLUSH SCH ×2 (09:04→21:00)
[2017-05-02] MEDS: FUROSEMIDE 40 MG/4 ML VIAL IV PUSH SCH ×2 (09:04→17:49)
--- NOTE | 2017-05-02 09:40 | HHI.PR ---
Subjective Remarks cough overnight- dry- dnies any fever or chills BP better controlled Objective Vitals Vital Signs Date Time Temp Pulse Resp B/P (MAP) Pulse Ox O2 Delivery O2 Flow Rate FiO2 05/02/17 08:00 97.3 76 14 138/63 (88) 94 05/02/17 04:17 97.8 70 18 118/73 (88) 96 05/02/17 04:00 Nasal Cannula 2.00 05/02/17 00:00 Nasal Cannula 2.00 05/01/17 23:19 97.8 69 18 119/75 (90) 95 05/01/17 20:00 Room Air 05/01/17 19:37 97.6 74 18 132/67 (88) 97 05/01/17 19:35 95 05/01/17 16:00 97.8 67 20 127/78 (94) 94 05/01/17 12:30 91 21 05/01/17 12:00 97.7 66 20 120/77 (91) 94 I/O 05/01/17 05/01/17 05/01/17 05/02/17 05/02/17 05/02/17 07:00 15:00 23:00 07:00 15:00 23:00 Intake Total 400 ml 480 ml 240 ml Output Total 500 ml Balance -100 ml 480 ml 240 ml Intake Oral 400 ml 480 ml 240 ml Output Urine Total 500 ml # Voids 4 6 # Bowel Movements 0 1 0 Result Diagram: 05/01/177 05/01/17 0317 Imaging Last Impressions Chest X-Ray 04/30/17 1608 Signed Impressions: Service Date/Time: Sunday, April 30, 2017 16:28 - CONCLUSION: No acute cardiopulmonary abnormality is identified. Manolo King MD Objective Remarks awak eand alert no acute distress throat - eri xudates lungs- few rhonchi , no wheezes regular rhythm abdomen soft extremities- traced edema, left lower extremity- erythema- decreased A/P Problem List: (1) new onse CHF (2) Cellulitis of left leg ICD Code: L03.116 - Cellulitis of left lower limb Status: Acute (3) Elevated troponin ICD Code: R74.8 - Abnormal levels of other serum enzymes Status: Acute Assessment and Plan 61-year-old male presenting with increasing shortness of breath for the past 3 weeks associated with bilateral lower extremity edema with elevated troponin, smoker Left lower extremity extensive cellulitis with dry open superficial wound- clinically improving Will start patient on cefazolin 2 g every 8 ID ff. Wound care team consult Will need to control bilateral lower extremity edema New Onset CHF likely secondary to longstanding hypertension r/o underlying CAD Elevated troponin likely secondary to CHF r/o underlying CAD History of hypertension noncompliant with meds We'll get 2-D echo- Cardiology ff- for myocardial perfusion study WLasix IV 40 mg every 12- Start patient on AYE inhibitor- Lisinopril 10 mg po daily- monitor- ? adverse reaction cough Lovenox subcutaneous twice a day. Daily weights. start ASA. check lipid panel Underlying COPD- exacerbation- mild - maybe from CHF component with likely RLD with obesity duonebs q 4. check PFTs continue on 02 2LNC Cough ? adverse reaction to AYE- monitor symptomatic treatment with cough meds for now Morbid obesity BMI of 36.4 Consult dietitian for nutrition counseling patient very motivated with exercise and weight reduction Discussed with patient extensively DVT prophylaxis on Lovenox for above. Marychuy Burgess MD May 02, 2017 09:40
[2017-05-02] MEDS ORDERED: predniSONE 50 MG TAB PO ONE (09:45)
[2017-05-02] MEDS ORDERED: REGADENOSON INJ 0.4 MG/5 ML SYR ONE (10:07)
[2017-05-02] MEDS: ENOXAPARIN SODIUM 120 MG/0.8 ML SYRINGE SQ SCH ×2 (13:05→21:45)
[2017-05-02 14:06] LABS: BICARBONATE 30.4 MEQ/L (21.0-32.0); POTASSIUM 3.7 MEQ/L (3.5-5.1)
--- NOTE | 2017-05-02 18:07 | PD.CARD.PN ---
Subjective Subjective Remarks No CP, still SOB, no improvement Objective Medications Current Medications Medications (Trade) Dose Ordered Sig/Patrick Route Start Time Stop Time Status Last Admin (NS Flush) 2 ml UNSCH PRN IV FLUSH 04/30/17 20:45 (NS Flush) 2 ml BID IV FLUSH 04/30/17 21:00 05/02/17 09:04 (Narcan Inj) 0.4 mg UNSCH PRN IV PUSH 04/30/17 20:45 (Lasix Inj) 40 mg BID@09,18 IV PUSH 05/01/17 09:00 05/02/17 17:49 (Prinivil) 10 mg DAILY PO 05/01/17 09:00 05/02/17 09:03 (Lovenox Inj) 120 mg Q12H SQ 05/01/17 10:00 05/02/17 13:05 Cefazolin Sodium/ Dextrose 50 ml @ 100 mls/hr Q8H IV 05/01/17 10:00 05/02/17 17:41 (Aspirin Chew) 162 mg DAILY CHEW 05/01/17 09:00 05/02/17 09:03 (Duoneb Neb) 1 ampule QID NEB NEB 05/01/17 09:15 05/02/17 15:41 (Duoneb Neb) 1 ampule Q2HR NEB PRN NEB 05/02/17 05:45 (Robitussin Dm 200-20 Mg/10 ml Liq) 10 ml Q4H PRN PO 05/02/17 13:00 Vital Signs / I&O Vital Signs Date Time Temp Pulse Resp B/P (MAP) Pulse Ox O2 Delivery O2 Flow Rate FiO2 05/02/17 16:00 98.0 75 22 121/80 (94) 92 05/02/17 11:30 97.5 75 20 150/83 (105) 92 05/02/17 08:00 73 05/02/17 08:00 97.3 76 14 138/63 (88) 94 05/02/17 07:00 Nasal Cannula 2.00 05/02/17 04:17 97.8 70 18 118/73 (88) 96 05/02/17 04:00 Nasal Cannula 2.00 05/02/17 00:00 Nasal Cannula 2.00 05/01/17 23:19 97.8 69 18 119/75 (90) 95 05/01/17 20:00 Room Air 05/01/17 19:37 97.6 74 18 132/67 (88) 97 05/01/17 19:35 95 I/O 05/01/17 05/01/17 05/01/17 05/02/17 05/02/17 05/02/17 07:00 15:00 23:00 07:00 15:00 23:00 Intake Total 400 ml 480 ml 240 ml 480 ml Output Total 500 ml Balance -100 ml 480 ml 240 ml 480 ml Intake Oral 400 ml 480 ml 240 ml 480 ml Output Urine Total 500 ml # Voids 4 6 4 # Bowel Movements 0 1 0 1 Physical Exam GENERAL: In mild respiratory distress SKIN: Warm and dry. HEAD: Normocephalic. EYES: No scleral icterus. No injection or drainage. NECK: Supple, trachea midline. No JVD or lymphadenopathy. CARDIOVASCULAR: Regular rate and rhythm without murmurs, gallops, or rubs. RESPIRATORY: Breath sounds equal bilaterally. No accessory muscle use. GASTROINTESTINAL: Abdomen soft, non-tender, nondistended. MUSCULOSKELETAL: No cyanosis, mild edema. Laboratory Laboratory Tests Test 05/02/17 12:50 Blood Urea Nitrogen 27 MG/DL Creatinine 0.84 MG/DL Random Glucose 103 MG/DL Calcium Level 9.0 MG/DL Sodium Level 139 MEQ/L Potassium Level 3.7 MEQ/L Chloride Level 102 MEQ/L Carbon Dioxide Level 30.4 MEQ/L Anion Gap 7 MEQ/L Estimat Glomerular Filtration Rate 94 ML/MIN Assessment and Plan Problem List: (1) Acute CHF (congestive heart failure) ICD Codes: I50.9 - Heart failure, unspecified (2) Cardiomyopathy ICD Codes: I42.9 - Cardiomyopathy, unspecified (3) HTN (hypertension) ICD Codes: I10 - Essential (primary) hypertension (4) Morbid obesity ICD Codes: E66.01 - Morbid (severe) obesity due to excess calories (5) Noncompliance ICD Codes: Z91.19 - Patient's noncompliance with other medical treatment and regimen (6) Wound cellulitis ICD Codes: L03.90 - Cellulitis, unspecified Assessment and Plan Still quite dyspneic. Echo with severe LV systolic dysfunction. Adenosine stress test ordered. Titrate tx for CHF including beta prema and mariam inhibitor. Monitor renal fx. Continue diuresis. Increase activity. Shelli Mandujano MD May 02, 2017 18:07
[2017-05-02] MEDS: CARVEDILOL 6.25 MG TAB PO SCH (21:45)
[2017-05-03] VITALS (7 sets, daily range): BP systolic 108–140; BP diastolic 56–84; PULSE 62–80; RESP 17–22; TEMP 94.8–98.5; O2SAT 91–95
[2017-05-03] MEDS: ceFAZolin 2 GM PREMIX 50 ML IV SCH ×3 (00:59→17:41)
[2017-05-03] MEDS: RESP: ALBUTEROL 2.5 MG/IPRATROPIUM 0.5 MG NEB (SCH) NEB ×4 (07:59→20:08)
[2017-05-03] MEDS ORDERED: LISINOPRIL 20 MG TAB PO SCH (09:00)
[2017-05-03] MEDS: FUROSEMIDE 40 MG/4 ML VIAL IV PUSH SCH ×2 (10:20→18:15)
[2017-05-03] MEDS: ASPIRIN 81 MG CHEW TAB CHEW SCH (10:21)
[2017-05-03] MEDS: SODIUM CHLORIDE 0.9% FLUSH 10 ML FLUSH IV FLUSH SCH ×2 (10:21→20:54)
[2017-05-03] MEDS: CARVEDILOL 6.25 MG TAB PO SCH (10:21)
[2017-05-03] MEDS: ENOXAPARIN SODIUM 120 MG/0.8 ML SYRINGE SQ SCH (10:26)
--- NOTE | 2017-05-03 10:45 | RADRPT ---
EXAM DATE/TIME: 05/02/2017 10:57 [facility] COMPARISON: No previous studies available for comparison. INDICATIONS : Left lower extremity pain. Congestive heart failure. DOSE: 30.6 mCi Tc99m Myoview at stress. 29.9 mCi Tc99m Myoview at rest. 0.4 mg Lexiscan STRESS SYMPTOMS: Hot and flush. EJECTION FRACTION: 21% MEDICAL HISTORY : Hypertension. SURGICAL HISTORY : None. ENCOUNTER: Initial ACUITY: 3 weeks PAIN SCALE: 8/10 LOCATION: Left lower quadrant TECHNIQUE: The patient underwent pharmacologic stress with infusion of prescribed dose. Continuous ECG tracing was monitored during stress. Gated SPECT imaging was performed after stress and conventional SPECT i maging was performed at rest. The examination was performed on a SPECT/CT scanner, both attenuation and non-corrected datasets were reviewed. FINDINGS: Dilated ventricular cavity with global hypokinesis. There is no redistribution to suggest ischemia. CONCLUSION: Negative for stress-induced ischemia. . RISK CATEGORY: High (>3% Annual Mortality Rate) Cosme Alaniz MD FACR on May 03, 2017 at 10:42 Board Certified Radiologist. This report was verified electronically.
--- NOTE | 2017-05-03 11:42 | HHI.PR ---
Subjective Remarks up sitting ambulating around- feels easily short of breaeth Objective Vitals Vital Signs Date Time Temp Pulse Resp B/P (MAP) Pulse Ox O2 Delivery O2 Flow Rate FiO2 05/03/17 08:37 94.8 63 17 125/84 (98) 05/03/17 08:00 95 05/03/17 08:00 66 05/03/17 03:50 97.8 62 22 109/66 (80) 91 05/02/17 23:18 98.1 71 22 124/65 (84) 93 05/02/17 21:30 Room Air 05/02/17 20:25 98.3 80 24 129/79 (96) 91 05/02/17 20:00 77 05/02/17 20:00 77 05/02/17 19:49 93 21 05/02/17 16:00 98.0 75 22 121/80 (94) 92 I/O 05/02/17 05/02/17 05/02/17 05/03/17 05/03/17 05/03/17 07:00 15:00 23:00 07:00 15:00 23:00 Intake Total 240 ml 480 ml 480 ml Balance 240 ml 480 ml 480 ml Intake Oral 240 ml 480 ml 480 ml # Voids 6 4 4 # Bowel Movements 0 1 1 Result Diagram: 05/01/17 0317 05/02/17 1250 Imaging Last Impressions Myocardial Perfusion Scan Nuc Med 05/02/17 0800 Signed Impressions: Service Date/Time: April 10:57 - CONCLUSION: Negative for stress-induced ischemia. . RISK CATEGORY: High (>3%% Annual Mortality Rate ) Cosme Alaniz MD FACR Chest X-Ray 04/30/17 1608 Signed Impressions: Service Date/Time: Sunday, April 30, 2017 16:28 - CONCLUSION: No acute cardiopulmonary abnormality is identified. Manolo King MD Objective Remarks awak eand alert no acute distress lungs- occasional rhonchi, no wheezes, no rales regular rhythm abdomen soft extremities- traced edema, left lower extremity- erythema- decreased A/P Problem List: (1) new onse CHF (2) Cellulitis of left leg ICD Code: L03.116 - Cellulitis of left lower limb Status: Acute (3) Elevated troponin ICD Code: R74.8 - Abnormal levels of other serum enzymes Status: Acute Assessment and Plan 61-year-old male presenting with increasing shortness of breath for the past 3 weeks associated with bilateral lower extremity edema with elevated troponin, smoker Left lower extremity extensive cellulitis with dry open superficial wound- clinically improving continue on cefazolin 2 g every 8 ID ff. wound care Will need to control bilateral lower extremity edema- advise patient to elevate Non ischemic Cardiomyipathy - New Onset CHF likely secondary to longstanding hypertension - EF 20% History of hypertension noncompliant with meds Cardiology ff- myocardial study negative for ischemia Lasix IV 40 mg every 12- increase dose to 60 bid Start patient on AYE inhibitor- Lisinopril 10 mg po daily- Lovenox changed to DVT prophylaxis dose Daily weights. start ASA. good lipid panel Underlying COPD- exacerbation- mild - maybe from CHF component with likely RLD with obesity duonebs q 4. check PFTs continue on 02 2LNC start MDIs Cough ? adverse reaction to AYE- monitor- improved symptomatic treatment with cough meds for now Morbid obesity BMI of 36.4 Consult dietitian for nutrition counseling patient very motivated with exercise and weight reduction Discussed with patient extensively- that with his EF needs to regulate his activity- no strenuous activities, adjust phsyical activity to his breathing DVT prophylaxis on Lovenox for above. Marychuy Burgess MD May 03, 2017 11:42
[2017-05-03 13:10] LABS: BICARBONATE 35.4 MEQ/L (21.0-32.0); POTASSIUM 3.5 MEQ/L (3.5-5.1)
--- NOTE | 2017-05-03 15:43 | PD.CARD.PN ---
Subjective Subjective Remarks No CP, still SOB with exertion, slow progress Objective Medications Current Medications Medications (Trade) Dose Ordered Sig/Patrick Route Start Time Stop Time Status Last Admin (NS Flush) 2 ml UNSCH PRN IV FLUSH 04/30/17 20:45 (NS Flush) 2 ml BID IV FLUSH 04/30/17 21:00 05/03/17 10:21 (Narcan Inj) 0.4 mg UNSCH PRN IV PUSH 04/30/17 20:45 Cefazolin Sodium/ Dextrose 50 ml @ 100 mls/hr Q8H IV 05/01/17 10:00 05/03/17 10:26 (Aspirin Chew) 162 mg DAILY CHEW 05/01/17 09:00 05/03/17 10:21 (Duoneb Neb) 1 ampule QID NEB NEB 05/01/17 09:15 05/03/17 11:28 (Duoneb Neb) 1 ampule Q2HR NEB PRN NEB 05/02/17 05:45 (Robitussin Dm 200-20 Mg/10 ml Liq) 10 ml Q4H PRN PO 05/02/17 13:00 (Coreg) 6.25 mg Q12HR PO 05/02/17 21:00 05/03/17 10:21 (Prinivil) 20 mg DAILY PO 05/03/17 09:00 05/03/17 10:21 (Lovenox Inj) 40 mg Q24H SQ 05/04/17 11:45 (Lasix) 60 mg BID@09,18 PO 05/03/17 18:00 Vital Signs / I&O Vital Signs Date Time Temp Pulse Resp B/P (MAP) Pulse Ox O2 Delivery O2 Flow Rate FiO2 05/03/17 08:37 94.8 63 17 125/84 (98) 05/03/17 08:00 95 05/03/17 08:00 66 05/03/17 03:50 97.8 62 22 109/66 (80) 91 05/02/17 23:18 98.1 71 22 124/65 (84) 93 05/02/17 21:30 Room Air 05/02/17 20:25 98.3 80 24 129/79 (96) 91 05/02/17 20:00 77 05/02/17 20:00 77 05/02/17 19:49 93 21 05/02/17 16:00 98.0 75 22 121/80 (94) 92 I/O 05/02/17 05/02/17 05/02/17 05/03/17 05/03/17 05/03/17 07:00 15:00 23:00 07:00 15:00 23:00 Intake Total 240 ml 480 ml 480 ml Balance 240 ml 480 ml 480 ml Intake Oral 240 ml 480 ml 480 ml # Voids 6 4 4 # Bowel Movements 0 1 1 Physical Exam GENERAL: In NAD SKIN: Warm and dry. HEAD: Normocephalic. EYES: No scleral icterus. No injection or drainage. NECK: Supple, trachea midline. No JVD or lymphadenopathy. CARDIOVASCULAR: Regular rate and rhythm without murmurs, gallops, or rubs. RESPIRATORY: Breath sounds equal bilaterally. No accessory muscle use. GASTROINTESTINAL: Abdomen soft, non-tender, nondistended. MUSCULOSKELETAL: No cyanosis, mild edema, LLE cellulitis. Laboratory Laboratory Tests Test 05/03/17 12:36 Blood Urea Nitrogen 25 MG/DL Creatinine 0.93 MG/DL Random Glucose 87 MG/DL Calcium Level 8.6 MG/DL Sodium Level 141 MEQ/L Potassium Level 3.5 MEQ/L Chloride Level 100 MEQ/L Carbon Dioxide Level 35.4 MEQ/L Anion Gap 6 MEQ/L Estimat Glomerular Filtration Rate 83 ML/MIN Assessment and Plan Problem List: (1) Acute CHF (congestive heart failure) ICD Codes: I50.9 - Heart failure, unspecified (2) Cardiomyopathy ICD Codes: I42.9 - Cardiomyopathy, unspecified (3) HTN (hypertension) ICD Codes: I10 - Essential (primary) hypertension (4) Morbid obesity ICD Codes: E66.01 - Morbid (severe) obesity due to excess calories (5) Noncompliance ICD Codes: Z91.19 - Patient's noncompliance with other medical treatment and regimen (6) Wound cellulitis ICD Codes: L03.90 - Cellulitis, unspecified Assessment and Plan Still with DALEY, slow progress. Echo with severe LV systolic dysfunction. Adenosine stress test with no evidence of ischemia, c/w NICM. Titrate tx for CHF including beta prema and mariam inhibitor. Monitor renal fx. Continue diuresis. Increase activity. D/w pt and friend. Shelli Mandujano MD May 03, 2017 15:43
[2017-05-03] MEDS ORDERED: POTASSIUM CHLORIDE 20 MEQ CONTROLLED RELEASE TAB PO ONE (17:15)
[2017-05-03] MEDS ORDERED: FUROSEMIDE 40 MG TAB PO SCH (18:00)
[2017-05-03] MEDS: CARVEDILOL 12.5 MG TAB PO SCH (20:54)
[2017-05-03] MEDS: guaiFENesin/DEXTROMETHORPHAN 200 MG/20 MG/10 ML CUP PO PRN (23:09)
[2017-05-04] VITALS (9 sets, daily range): BP systolic 94–148; BP diastolic 56–83; PULSE 59–75; RESP 16–20; TEMP 97–98.9; O2SAT 92–97
[2017-05-04] MEDS: ceFAZolin 2 GM PREMIX 50 ML IV SCH ×3 (02:09→17:04)
[2017-05-04 07:03] LABS: BICARBONATE 35.8 MEQ/L (21.0-32.0)
[2017-05-04 07:05] LABS: POTASSIUM 3.9 MEQ/L (3.5-5.1)
[2017-05-04] MEDS: RESP: ALBUTEROL 2.5 MG/IPRATROPIUM 0.5 MG NEB (SCH) NEB ×4 (08:40→21:19)
[2017-05-04] MEDS: SODIUM CHLORIDE 0.9% FLUSH 10 ML FLUSH IV FLUSH SCH ×2 (08:44→20:39)
[2017-05-04] MEDS: ASPIRIN 81 MG CHEW TAB CHEW SCH (08:44)
[2017-05-04] MEDS: LISINOPRIL 20 MG TAB PO SCH (08:44)
[2017-05-04] MEDS: CARVEDILOL 12.5 MG TAB PO SCH ×2 (08:44→20:39)
[2017-05-04] MEDS: FUROSEMIDE 40 MG/4 ML VIAL IV PUSH SCH ×2 (08:45→17:17)
[2017-05-04] MEDS: guaiFENesin/DEXTROMETHORPHAN 200 MG/20 MG/10 ML CUP PO PRN (09:30)
[2017-05-04] MEDS ORDERED: ENOXAPARIN SODIUM 40 MG/0.4 ML SYRINGE SQ SCH (11:45)
--- NOTE | 2017-05-04 12:05 | HHI.PR ---
Subjective Remarks feeling better swelling decrease in LE decreasing erythema leg Objective Vitals Vital Signs Date Time Temp Pulse Resp B/P (MAP) Pulse Ox O2 Delivery O2 Flow Rate FiO2 05/04/17 09:00 93 Room Air 05/04/17 08:40 93 21 05/04/17 08:00 97.0 75 20 136/75 (95) 92 05/04/17 04:00 Room Air 05/04/17 03:55 97.4 62 18 94/56 (69) 95 05/04/17 00:00 Room Air 05/03/17 23:07 98.4 69 18 140/71 (94) 92 05/03/17 20:00 70 05/03/17 20:00 Room Air 05/03/17 19:33 98.5 69 18 116/56 (76) 95 05/03/17 16:00 97.6 80 20 108/65 (79) 92 I/O 05/03/17 05/03/17 05/03/17 05/04/17 05/04/17 05/04/17 07:00 15:00 23:00 07:00 15:00 23:00 Intake Total 480 ml 50 ml 770 ml 480 ml Balance 480 ml 50 ml 770 ml 480 ml Intake Oral 480 ml 720 ml 480 ml IV Total 50 ml 50 ml # Voids 4 3 5 # Bowel Movements 1 1 0 Result Diagram: 05/01/17 0317 05/04/17 0531 Imaging Last Impressions Myocardial Perfusion Scan Nuc Med 05/02/17 0800 Signed Impressions: Service Date/Time: April 10:57 - CONCLUSION: Negative for stress-induced ischemia. . RISK CATEGORY: High (>3%% Annual Mortality Rate ) Cosme Alaniz MD FACR Chest X-Ray 04/30/17 1608 Signed Impressions: Service Date/Time: Sunday, April 30, 2017 16:28 - CONCLUSION: No acute cardiopulmonary abnormality is identified. Manolo King MD Objective Remarks awake and alert no acute distress lungs- no rhonchi no wheezes, no rales regular rhythm abdomen soft extremities- edema improved, left lower extremity- erythema- decreased superficial wound- dry- tibial area A/P Problem List: (1) new onse CHF (2) Cellulitis of left leg ICD Code: L03.116 - Cellulitis of left lower limb Status: Acute (3) Elevated troponin ICD Code: R74.8 - Abnormal levels of other serum enzymes Status: Acute Assessment and Plan 61-year-old male presenting with increasing shortness of breath for the past 3 weeks associated with bilateral lower extremity edema with elevated troponin, smoker Left lower extremity extensive cellulitis with dry open superficial wound- clinically improving continue on cefazolin 2 g every 8- xchange to po Keflex on DC ID ff. wound care Will need to control bilateral lower extremity edema- advise patient to elevate Non ischemic Cardiomyipathy - New Onset CHF likely secondary to longstanding hypertension - EF 20% History of hypertension noncompliant with meds Cardiology ff- myocardial study negative for ischemia improving edema - Lasix up to 60 bid- change to po on DC Start patient on AYE inhibitor- Lisinopril 40 mg po daily- Lovenox changed to DVT prophylaxis dose Daily weights. start ASA. good lipid panel Underlying COPD- exacerbation- mild - maybe from CHF component with likely RLD with obesity duonebs q 4. check PFTs continue on 2LNC start MDIs Cough ?- monitor- improved symptomatic treatment with cough meds for now Morbid obesity BMI of 36.4 counselled patient very motivated with exercise and weight reduction Discussed with patient extensively- that with his EF needs to regulate his activity- no strenuous activities, adjust phsyical activity to his breathing DVT prophylaxis on Lovenox for above. Marychuy Burgess MD May 04, 2017 12:05
[2017-05-04] MEDS ORDERED: LISI-515 PO (12:10)
[2017-05-04] MEDS ORDERED: CARV12.5 PO (12:10)
[2017-05-04] MEDS ORDERED: ASPI81 CHEW (12:10)
[2017-05-04] MEDS ORDERED: FURO1TAB60 PO (12:11)
[2017-05-04] MEDS ORDERED: FURO1TAB62 PO (12:11)
[2017-05-04] MEDS: ALBUTEROL SULFATE 90 MCG/ACT HFA 8 GM INHALER INH SCH ×3 (17:03→23:46)
[2017-05-04] MEDS: TIOTROPIUM BROMIDE 18 MCG INH INH SCH (17:03)
[2017-05-05] VITALS: BP 105/58; PULSE 62; RESP 16; TEMP 97.2; O2SAT 94
[2017-05-05] MEDS: ceFAZolin 2 GM PREMIX 50 ML IV SCH (01:06)
[2017-05-05 04:00] VITALS: BP 99/67; PULSE 57; RESP 16; TEMP 97.7; O2SAT 94
[2017-05-05] MEDS: ALBUTEROL SULFATE 90 MCG/ACT HFA 8 GM INHALER INH SCH (05:48)
[2017-05-05 05:58] VITALS: O2SAT 80
[2017-05-05 08:00] VITALS: BP 114/68; PULSE 55; RESP 20; TEMP 98; O2SAT 90
[2017-05-05] MEDS: CARVEDILOL 12.5 MG TAB PO SCH (08:24)
[2017-05-05] MEDS: ASPIRIN 81 MG CHEW TAB CHEW SCH (08:24)
[2017-05-05] MEDS: LISINOPRIL 20 MG TAB PO SCH (08:24)
[2017-05-05] MEDS: FUROSEMIDE 40 MG/4 ML VIAL IV PUSH SCH (08:26)
[2017-05-05] MEDS: SODIUM CHLORIDE 0.9% FLUSH 10 ML FLUSH IV FLUSH SCH (08:31)
[2017-05-05] MEDS: TIOTROPIUM BROMIDE 18 MCG INH INH SCH (08:31)
[2017-05-05 08:37] LABS: BICARBONATE 37.7 MEQ/L (21.0-32.0); POTASSIUM 3.5 MEQ/L (3.5-5.1)
[2017-05-05] MEDS: RESP: ALBUTEROL 2.5 MG/IPRATROPIUM 0.5 MG NEB (SCH) NEB (08:42)
[2017-05-05 08:44] VITALS: O2SAT 91
--- NOTE | 2017-05-05 09:58 | HHI.PR ---
Subjective Remarks feels better and wanting to go home easily gets short of breath with exertion leg erythema and swelling decrease voiding - "a lot" d/w staff nurse - desaturates at night- goes into episodes of apnea will; do a walk test Objective Vitals Vital Signs Date Time Temp Pulse Resp B/P (MAP) Pulse Ox O2 Delivery O2 Flow Rate FiO2 05/05/17 08:00 98.0 55 20 114/68 (83) 90 05/05/17 06:01 95 Nasal Cannula 3.00 05/05/17 05:59 80 Room Air 05/05/17 05:58 80 05/05/17 04:00 Room Air 05/05/17 04:00 97.7 57 16 99/67 (78) 94 05/05/17 00:00 97.2 62 16 105/58 (74) 94 05/05/17 00:00 Room Air 05/04/17 21:22 93 Nasal Cannula 4.00 05/04/17 20:43 Room Air 05/04/17 20:00 98.1 63 16 115/74 (88) 94 05/04/17 20:00 Room Air 05/04/17 19:58 59 05/04/17 17:00 93 Nasal Cannula 2.00 05/04/17 16:00 97.0 59 20 97/56 (70) 97 05/04/17 12:00 98.9 60 20 148/83 (104) 92 I/O 05/04/17 05/04/17 05/04/17 05/05/17 05/05/17 05/05/17 07:00 15:00 23:00 07:00 15:00 23:00 Intake Total 480 ml 960 ml 50 ml Output Total 200 ml Balance 480 ml 960 ml -150 ml Intake Oral 480 ml 960 ml IV Total 50 ml Output Urine Total 200 ml # Voids 5 3 # Bowel Movements 0 1 Result Diagram: 05/01/17 0317 05/05/17 0725 Imaging Last Impressions Myocardial Perfusion Scan Nuc Med 05/02/17 0800 Signed Impressions: Service Date/Time: April 10:57 - CONCLUSION: Negative for stress-induced ischemia. . RISK CATEGORY: High (>3%% Annual Mortality Rate ) Cosme Alaniz MD FACR Chest X-Ray 04/30/17 1608 Signed Impressions: Service Date/Time: Sunday, April 30, 2017 16:28 - CONCLUSION: No acute cardiopulmonary abnormality is identified. Manolo King MD Objective Remarks awake and alert no acute distress lungs- no rhonchi no wheezes, no rales regular rhythm abdomen soft extremities- edema trace- improved , left lower extremity- erythema- decreased superficial wound- dry- tibial area A/P Problem List: (1) new onse CHF (2) Cellulitis of left leg ICD Code: L03.116 - Cellulitis of left lower limb Status: Acute (3) Elevated troponin ICD Code: R74.8 - Abnormal levels of other serum enzymes Status: Acute Assessment and Plan 61-year-old male presenting with increasing shortness of breath for the past 3 weeks associated with bilateral lower extremity edema with elevated troponin, smoker Left lower extremity extensive cellulitis with dry open superficial wound- clinically improving continue on cefazolin 2 g every 8- xchange to po Keflex on DC ID ff. wound care Will need to control bilateral lower extremity edema- advise patient to elevate Non ischemic Cardiomyppathy - New Onset CHF likely secondary to longstanding hypertension - EF 20% History of hypertension noncompliant with meds Cardiology ff- myocardial study negative for ischemia edema improved- change to po0 Lasix 40 mg bid Lisinopril 40 mg po daily- Lovenox changed to DVT prophylaxis dose Daily weights. start ASA. good lipid panel Underlying COPD- exacerbation- mild - maybe from CHF component with likely RLD with obesity YASMEEN suspect- desaturates when asleep per patient- noted apneic episodes duonebs q 4. check PFTs as OP continue on 2LNC start MDIs will need walk test prior to DC- good sats on walk test Morbid obesity BMI of 36.4 counselled patient very motivated with exercise and weight reduction Discussed with patient extensively- that with his EF needs to regulate his activity- no strenuous activities, adjust phsyical activity to his breathing DVT prophylaxis on Lovenox for above. stable for DC- wanting to go home seen with good friend in the room this pm advised ff up with PCP- he will set him up ff uop iwth Dr. Mandujano as OP- - gave hi office number to call Marychuy Burgess MD May 05, 2017 09:58
[2017-05-05] MEDS ORDERED: LACTIC ACID (AMMONIUM LACTATE) 12% LOTION 225 GM BTL TOPICAL SCH (10:15)
[2017-05-05 12:00] VITALS: BP 111/60; PULSE 63; RESP 18; TEMP 97; O2SAT 91
[2017-05-05] MEDS ORDERED: CEPH-460 PO (13:09)
[2017-05-05] MEDS ORDERED: Lactic Acid 12% Lotion TOPICAL (13:11)
--- NOTE | 2017-05-05 13:19 | HHI.DS ---
Discharge Summary Admission Date May 01, 2017 at 08:45 Discharge Date: May 05, 2017 Admitting Diagnosis elevated trop, dyspnea, peripheral edema, cellulitis LLE (1) new onse CHF Diagnosis: Principal (2) Cellulitis of left leg ICD Code: L03.116 - Cellulitis of left lower limb Diagnosis: Principal Status: Acute (3) Elevated troponin ICD Code: R74.8 - Abnormal levels of other serum enzymes Diagnosis: Secondary Status: Acute Procedures none Brief History - From Admission Patient is a 61-year-old male obese nonsmoker for the past 40 years presented to the emergency room complaining complaining of 3 weeks duration of bilateral leg swelling. LATER noted a blister on the left lower leg which he described as some labeled with colorless clear fluid inside. Gradually with increasing redness around the area and progressed to the entire left lower extremity up to the ankle area. Patient also complains of decreased energy feeling shortness of breath with minimal activity. Persistence of above signs and symptoms prompted consult to an urgent care clinic where he was advised to come to the emergency room for further evaluation. Patient denies any chest pains. Patient denies any orthopnea. Denies any fever or chills. On evaluation exam shows extensive erythema of the left lower extremity with of 3" x 2" dry scab. Patient admitted for further evaluation and management. CBC/BMP: 05/01/17 0317 05/05/17 0725 Significant Findings Laboratory Tests Test 05/03/17 12:36 05/04/17 05:31 05/05/17 07:25 Blood Urea Nitrogen 25 MG/DL (7-18) 27 MG/DL (7-18) 26 MG/DL (7-18) Carbon Dioxide Level 35.4 MEQ/L (21.0-32.0) 35.8 MEQ/L (21.0-32.0) 37.7 MEQ/L (21.0-32.0) Estimat Glomerular Filtration Rate 83 ML/MIN (>89) 85 ML/MIN (>89) 66 ML/MIN (>89) Random Glucose 133 MG/DL (74-106) Calcium Level 8.4 MG/DL (8.5-10.1) Chloride Level 97 MEQ/L (98-107) Imaging Last Impressions Myocardial Perfusion Scan Nuc Med 05/02/17 0800 Signed Impressions: Service Date/Time: April 10:57 - CONCLUSION: Negative for stress-induced ischemia. . RISK CATEGORY: High (>3%% Annual Mortality Rate ) Cosme Alaniz MD FACR Chest X-Ray 04/30/17 1608 Signed Impressions: Service Date/Time: Sunday, April 30, 2017 16:28 - CONCLUSION: No acute cardiopulmonary abnormality is identified. Manolo King MD PE at Discharge awake and alert no acute distress lungs- no rhonchi no wheezes, no rales regular rhythm abdomen soft extremities- edema trace- improved , left lower extremity- erythema- decreased superficial wound- dry- tibial area Pt update on day of discharge ambulating better with less shortness of breath good sats at room air- walk test edema- much improved advised compliance with meds and necessity of OP ff up- friend will get him to see a doctor Hospital Course 61-year-old male presenting with increasing shortness of breath for the past 3 weeks associated with bilateral lower extremity edema with elevated troponin, smoker Left lower extremity extensive cellulitis with dry open superficial wound- clinically improving continue on cefazolin 2 g every 8- change to po Keflex on DC Will need to control bilateral lower extremity edema- advise patient to elevate Non ischemic Cardiomyppathy - New Onset CHF likely secondary to longstanding hypertension - EF 20% History of hypertension noncompliant with meds Cardiology ff- myocardial study negative for ischemia edema improved- change to po0 Lasix 40 mg bid Lisinopril 40 mg po daily- Lovenox changed to DVT prophylaxis dose Daily weights. start ASA. good lipid panel Underlying COPD- exacerbation- mild - maybe from CHF component with likely RLD with obesity YASMEEN suspect- desaturates when asleep per patient- noted apneic episodes duonebs q 4. check PFTs as OP continue on 02 2LNC start MDIs will need walk test prior to DC- good sats on walk test Morbid obesity BMI of 36.4 counselled patient very motivated with exercise and weight reduction Discussed with patient extensively- that with his EF needs to regulate his activity- no strenuous activities, adjust phsyical activity to his breathing DVT prophylaxis on Lovenox for above. stable for DC- wanting to go home seen with good friend in the room this pm advised ff up with PCP- he will set him up ff uop iwth Dr. Mandujano as OP- - gave hiim office number to call Pt Condition on Discharge: Stable Discharge Disposition: Discharge Home Discharge Time: > 30 minutes Discharge Instructions DIET: Follow Instructions for: Heart Healthy Diet Speech Therapy-Diet Recommends: Regular Activities you can perform: Weight Bearing as Inocente Activities to Avoid: Prolonged Standing, Strenuous Activity Follow up Referrals: Cardiology - 3-5 Days with Shelli Mandujano MD PCP Follow-up with choice New Orders: BASIC METABOLIC PROF - 05/07/17 New Medications: Cephalexin (Keflex) 500 Mg Capsule 1000 MG PO Q8H for Infection for 7 Days, #42 CAP 0 Refills Furosemide (Lasix) 40 Mg Tab 40 MG PO BID for CMP for 30 Days, #60 TAB 0 Refills Aspirin (Tgt Aspirin) 81 Mg Chw 162 MG CHEW DAILY for CMP for 90 Days, #90 EA 1 Refill Carvedilol (Coreg) 12.5 Mg Tab 12.5 MG PO Q12HR for CHF for 30 Days, #60 TAB Lisinopril (Lisinopril) 20 Mg Tab 40 MG PO DAILY for CMP for 30 Days, #30 TAB 1 Refill [Lactic Acid 12% Lotion] () 225 APPLIC/225 GM LOTN 1 APPLIC TOPICAL BID for sksin for 10 Days Marychuy Burgess MD May 05, 2017 13:19
[2017-05-05] MEDS ORDERED: SPIRCAP INH (13:26)
[2017-05-05] MEDS ORDERED: Albuterol Hfa Inh INH (13:26)
[2017-05-05] MEDS ORDERED: FUROSEMIDE 40 MG/4 ML VIAL IV PUSH SCH (18:00)
[2017-05-06] MEDS ORDERED: FUROSEMIDE 40 MG TAB PO SCH (09:00)
== END 2017-05-05 13:28 | disposition home or self-care (01) | DRG 292 ==
LOC: NEPE 15:39 → UNDOADMIN 18:35 → NEDA 18:35 → N04B 19:58 → NEDA 19:58 → INTOOBSV 20:33 → N04B 20:33 → OBSVTOIN 05-01 08:45
PROVIDERS: ADMIT Internal Medicine; ATTEND Internal Medicine
DX: I11.0 Hypertensive heart disease with heart failure (principal); L03.116 Cellulitis of left lower limb; I42.8 Other cardiomyopathies; J44.1 Chronic obstructive pulmonary disease with (acute) exacerbation; I50.9 Heart failure, unspecified; E66.01 Morbid (severe) obesity due to excess calories; F17.210 Nicotine dependence, cigarettes, uncomplicated; G47.33 Obstructive sleep apnea (adult) (pediatric); R60.0 Localized edema; R05 Cough; Z68.36 Body mass index [BMI] 36.0-36.9, adult; Z71.3 Dietary counseling and surveillance; Z91.14 Patient's other noncompliance with medication regimen
CPT/HCPCS: 36600; 71020; 78452; 80048; 80053; 80061; 82550; 82805; 83880; 84484; 85025; 85610; 85730; 93005; 93017; 93306; 94060; 94620; 94640; 94664; A9502; J0690; J1644; J1650; J1940; J2785; J7512

== ENCOUNTER 2017-09-24 19:15 | Observation (INO) | payer OTHER ==
[2017-09-24] VITALS (7 sets, daily range): BP systolic 158–170; BP diastolic 94–110; PULSE 51–98; RESP 20–30; TEMP 98.5; O2SAT 90–95
[~2017-09-24] VITALS: Ht 185.4 cm; Wt 128.0 kg
[~2017-09-24 19:15] MED LIST: ASPI81 CHEW; Albuterol Hfa Inh INH; CARV12.5 PO; CEPH-460 PO; FURO1TAB60 PO; LISI-515 PO; Lactic Acid 12% Lotion TOPICAL; SPIRCAP INH
[2017-09-24] MEDS ORDERED: CARV25TA (20:34)
[2017-09-24] MEDS ORDERED: KLOR10TA PO (20:34)
--- NOTE | 2017-09-24 20:37 | RADRPT ---
EXAM DATE/TIME: 09/24/2017 19:51 [facility] COMPARISON: No previous studies available for comparison. INDICATIONS : Shortness of breath. MEDICAL HISTORY : Hypertension. Diabetes mellitus type II. Congestive heart failure. Smoker. SURGICAL HISTORY : None. ENCOUNTER: Initial ACUITY: 2 days PAIN SCORE: 0/10 LOCATION: Bilateral chest FINDINGS: There is cardiomegaly with questionable early interstitial edema. No significant effusion. No pneumot horax. CONCLUSION: 1. Cardiomegaly with questionable early interstitial edema. Karri Bangura MD on September 24, 2017 at 20:34 Board Certified Radiologist. This report was verified electronically.
--- NOTE | 2017-09-24 20:59 | PD ---
HPI Chief Complaint: Respiratory Symptoms Time Seen by Provider: 20:29 Travel History International Travel<30 days: No Contact w/Intl Traveler<30days: No Traveled to known affect area: No History of Present Illness HPI Patient is a 8-year-old male with a history of CHF likely secondary to uncontrolled hypertension presents emergency department for evaluation of shortness of breath and leg swelling over the past few days and rapidly worsening. Patient states he has noticed that his legs are significantly more swollen they have been in the past. Denies any chest pain. He states is gotten to the point where ambulating only a few steps causes some significant shortness of breath. He states that a few months ago 1 of his medications was changed and thinks this has something to do with it. He is unsure if this is his water pill or beta-prema that was changed. He has been taking his Lasix as prescribed which is 40 mg daily. States symptoms are moderate, gradually worsening, context as above, associated signs and symptoms as above PFSH Past Medical History Cancer: No Cardiovascular Problems: Yes Endocrine: No Genitourinary: No Hypertension: Yes Immune Disorder: No Musculoskeletal: No Neurologic: No Psychiatric: No Reproductive: No Respiratory: No Triglycerides - High: Yes Tetanus Vaccination: < 5 Years Influenza Vaccination: No Past Surgical History Oral Surgery: Yes (tonsillectomy ) Other Surgery: Yes Social History Alcohol Use: No Tobacco Use: Yes (1 ppd) Substance Use: No Allergies-Medications (Allergen,Severity, Reaction): Coded Allergies: No Known Allergies (Unverified , 04/30/17) Reported Meds & Prescriptions Reported Meds & Active Scripts Active Spiriva Handihaler (Tiotropium Inh) 18 Mcg Cap 18 Mcg INH DAILY 30 Days 1 capsule = 18 mcg [Albuterol Hfa Inh] 60 PUFF/8 GM Aero 2 Puff INH Q6HR Lasix (Furosemide) 40 Mg Tab 40 Mg PO BID 30 Days Tgt Aspirin (Aspirin) 81 Mg Chw 162 Mg CHEW DAILY 90 Days Reported Klor-Con 10 (Potassium Chloride) 10 Meq Tab 10 Meq PO DAILY Carvedilol 25 Mg Tab 25 Mg BID Review of Systems Except as stated in HPI: all other systems reviewed are Neg Physical Exam Narrative GENERAL: Well-developed morbidly obese male appears older than stated age mildly tachypneic tripod position. SKIN: Focused skin assessment warm/dry. HEAD: Atraumatic. Normocephalic. EYES: Pupils equal and round. No scleral icterus. No injection or drainage. ENT: No nasal bleeding or discharge. Mucous membranes pink and moist. NECK: Trachea midline. No JVD. CARDIOVASCULAR: Regular rate and rhythm. No murmur appreciated. 2+ bilateral equal pulses in all 4 extremities per RESPIRATORY: No accessory muscle use. Tachypneic with bibasilar rales, tripod position. GASTROINTESTINAL: Abdomen soft, non-tender, nondistended. Hepatic and splenic margins not palpable. MUSCULOSKELETAL: No obvious deformities. No clubbing. No cyanosis. Significant edema from the patella down bilaterally. No edema of the upper extremities. NEUROLOGICAL: Awake and alert. No obvious cranial nerve deficits. Motor grossly within normal limits. Normal speech. PSYCHIATRIC: Appropriate mood and affect; insight and judgment normal. Data Data Last Documented VS Vital Signs Date Time Temp Pulse Resp B/P (MAP) Pulse Ox O2 Delivery O2 Flow Rate FiO2 09/24/17 20:34 95 Nasal Cannula 2.00 09/24/17 20:30 57 28 09/24/17 19:20 98.5 Orders Orders Complete Blood Count With Diff (09/24/17 19:23) Comprehensive Metabolic Panel (09/24/17 19:23) B-Type Natriuretic Peptide (09/24/17 19:23) Act Partial Throm Time (Ptt) (09/24/17 19:23) Prothrombin Time / Inr (Pt) (09/24/17 19:23) Magnesium (Mg) (09/24/17 19:23) Ckmb (Isoenzyme) Profile (09/24/17 19:23) Troponin I (09/24/17 19:23) Electrocardiogram (09/24/17 19:23) Chest, Pa & Lat (09/24/17 19:23) Lipase (09/24/17 19:23) Furosemide Inj (Lasix Inj) (09/24/17 21:00) Acetaminophen (Tylenol) (09/24/17 22:00) Admit Order (Ed Use Only) (09/24/17 ) Labs Laboratory Tests Test 09/24/17 19:46 09/24/17 21:09 Prothrombin Time 12.6 SEC Prothromb Time International Ratio 1.2 RATIO Activated Partial Thromboplast Time 26.2 SEC Blood Urea Nitrogen 16 MG/DL Creatinine 0.86 MG/DL Random Glucose 131 MG/DL Total Protein 6.9 GM/DL Albumin 3.2 GM/DL Calcium Level 8.6 MG/DL Magnesium Level 1.8 MG/DL Alkaline Phosphatase 119 U/L Aspartate Amino Transf (AST/SGOT) 20 U/L Alanine Aminotransferase (ALT/SGPT) 17 U/L Total Bilirubin 1.0 MG/DL Sodium Level 142 MEQ/L Potassium Level 3.6 MEQ/L Chloride Level 104 MEQ/L Carbon Dioxide Level 29.1 MEQ/L Anion Gap 9 MEQ/L Estimat Glomerular Filtration Rate 91 ML/MIN Total Creatine Kinase 48 U/L Troponin I LESS THAN 0.02 NG/ML B-Type Natriuretic Peptide 1570 PG/ML Lipase 128 U/L White Blood Count 6.7 TH/MM3 Red Blood Count 5.32 MIL/MM3 Hemoglobin 15.8 GM/DL Hematocrit 48.8 % Mean Corpuscular Volume 91.8 FL Mean Corpuscular Hemoglobin 29.7 PG Mean Corpuscular Hemoglobin Concent 32.4 % Red Cell Distribution Width 16.6 % Platelet Count 103 TH/MM3 Mean Platelet Volume 9.7 FL Neutrophils (%) (Auto) 67.2 % Lymphocytes (%) (Auto) 21.7 % Monocytes (%) (Auto) 8.8 % Eosinophils (%) (Auto) 1.7 % Basophils (%) (Auto) 0.6 % Neutrophils # (Auto) 4.5 TH/MM3 Lymphocytes # (Auto) 1.5 TH/MM3 Monocytes # (Auto) 0.6 TH/MM3 Eosinophils # (Auto) 0.1 TH/MM3 Basophils # (Auto) 0.0 TH/MM3 CBC Comment DIFF FINAL Differential Comment MDM Medical Decision Making Medical Screen Exam Complete: Yes Emergency Medical Condition: Yes Differential Diagnosis CHF exacerbation, pneumonia, ACS unlikely, UT unlikely, Narrative Course Patient was room to the emergency department, initial saturations on room air in triage were 90%, is doing well on nasal cannula. Bibasilar rales noted as well as edema of his lower extremities consistent with CHF exacerbation. His BNP is elevated, EKG and troponin negative, chest x-ray does show developing interstitial edema. Was given Lasix 80 mg IV and is beginning to diuresis. Discussed with him need for admission. He is agreeable. His last echocardiogram at this facility showed an EF of 20%. Discussed with Dr. Chun who will admit. Diagnosis Primary Impression: Acute CHF (congestive heart failure) Qualified Codes: I50.9 - Heart failure, unspecified Admitting Information Admitting Physician Requests: Admit Condition: Stable Ant Bee MD Sep 24, 2017 20:59
[2017-09-24] MEDS ORDERED: FUROSEMIDE 100 MG/10 ML VIAL IV PUSH ONE (21:00)
[2017-09-24 21:02] LABS: INTERNATIONAL NORMALIZED RATIO 1.2 RATIO; PROTHROMBIN TIME - PATIENT 12.6 SEC (9.8-11.6)
[2017-09-24 21:23] LABS: ALBUMIN 3.2 GM/DL (3.4-5.0); AST (GOT) 20 U/L (15-37); BICARBONATE 29.1 MEQ/L (21.0-32.0); BLOOD UREA NITROGEN 16 MG/DL (7-18); CALCIUM 8.6 MG/DL (8.5-10.1); CHLORIDE 104 MEQ/L (98-107); CREATININE 0.86 MG/DL (0.60-1.30); GLOMERULAR FILTRATION RATE 91 ML/MIN (>89); GLUCOSE,RANDOM 131 MG/DL (74-106); MAGNESIUM 1.8 MG/DL (1.5-2.5); SODIUM (NA) 142 MEQ/L (136-145)
[2017-09-24 21:30] LABS: ALKALINE PHOSPHATASE 119 U/L (45-117); ALT (GPT) 17 U/L (12-78); TOTAL PROTEIN 6.9 GM/DL (6.4-8.2); TROPONIN I LESS THAN 0.02 NG/ML (0.02-0.05)
[2017-09-24 21:47] LABS: AUTOMATED NEUTROPHIL # 4.5 TH/MM3 (1.8-7.7); BASOPHIL % 0.6 % (0.0-2.0); EOSINOPHIL # 0.1 TH/MM3 (0-0.4); EOSINOPHIL % 1.7 % (0.0-4.0); HEMATOCRIT 48.8 % (39.0-51.0); HEMOGLOBIN 15.8 GM/DL (13.0-17.0); LYMPH % 21.7 % (9.0-44.0); LYMPHOCYTE # 1.5 TH/MM3 (1.0-4.8); MEAN CELL VOLUME 91.8 FL (80.0-100.0); MEAN CORPUSCULAR HEMOGLOBIN 29.7 PG (27.0-34.0); MEAN CORPUSCULAR HGB CONC 32.4 % (32.0-36.0); MEAN PLATELET VOLUME 9.7 FL (7.0-11.0); MONO % 8.8 % (0.0-8.0); MONOCYTE # 0.6 TH/MM3 (0-0.9); NEUT % 67.2 % (16.0-70.0); PLATELET COUNT 103 TH/MM3 (150-450); RED BLOOD COUNT 5.32 MIL/MM3 (4.50-5.90); RED CELL DISTRIBUTION WIDTH 16.6 % (11.6-17.2); WHITE BLOOD COUNT 6.7 TH/MM3 (4.0-11.0)
[2017-09-24] MEDS ORDERED: ACETAMINOPHEN 500 MG CPLT PO ONE (22:00)
[2017-09-24] MEDS: HEPARIN SODIUM - SQ 10,000 UNITS/ML VIAL SQ SCH (23:43)
[2017-09-24] MEDS ORDERED: SODIUM CHLORIDE 0.9% FLUSH 10 ML FLUSH IV FLUSH PRN (23:45)
[2017-09-25] VITALS (14 sets, daily range): BP systolic 108–137; BP diastolic 58–84; PULSE 42–90; RESP 14–24; TEMP 97.3–98.1; O2SAT 93–98
--- NOTE | 2017-09-25 01:07 | HHI.HP ---
[facility] No Primary Care Physician Admission Diagnosis Acute CHf Exacerbation, Hypoxia. Diagnoses: Travel History International Travel<30 Days: No Contact w/Intl Traveler <30 Da: No Traveled to Known Affected Are: No History of Present Illness 62-year-old male with a past medical history significant for CHF (last echo done on 05/01/17 showed an EF of 20%) and hypertension presents to the emergency department for evaluation of bilateral lower extremity edema and shortness of breath. The patient reports that his legs have been swelling for anywhere between 3 days to the past week. He endorses shortness of breath that is worse when he lies flat and makes it almost impossible for him to walk. He complains of fatigue worse than normal. He denies any chest pain. No nausea/vomiting. No abdominal pain. No lateralizing signs/symptoms. 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 Review of Systems Except as stated in HPI: all other systems reviewed are Neg Past Family Social History Past Medical History Pretension CHF (last echo done in 05/01/17 showed an EF of 20%) Past Surgical History None Reported Medications Reported Meds & Active Scripts Active Spiriva Handihaler (Tiotropium Inh) 18 Mcg Cap 18 Mcg INH DAILY 30 Days 1 capsule = 18 mcg [Albuterol Hfa Inh] 60 PUFF/8 GM Aero 2 Puff INH Q6HR Lasix (Furosemide) 40 Mg Tab 40 Mg PO BID 30 Days Tgt Aspirin (Aspirin) 81 Mg Chw 162 Mg CHEW DAILY 90 Days Reported Klor-Con 10 (Potassium Chloride) 10 Meq Tab 10 Meq PO DAILY Carvedilol 25 Mg Tab 25 Mg BID Allergies: Coded Allergies: No Known Allergies (Unverified , 04/30/17) Family History Negative for CAD/DM Social History Smokes proximally one pack per day. Occasional alcohol. Denies illicit drugs. Physical Exam Vital Signs Vital Signs Date Time Temp Pulse Resp B/P (MAP) Pulse Ox O2 Delivery O2 Flow Rate FiO2 09/25/17 00:47 51 18 137/61 (86) 95 Nasal Cannula 3.50 09/25/17 00:42 95 Nasal Cannula 3.50 09/25/17 00:41 94 Nasal Cannula 3.50 09/25/17 00:41 BiPAP 09/25/17 00:28 97 BiPAP 30 09/25/17 00:27 97 30 09/25/17 00:27 96 BiPAP 30 09/24/17 23:30 51 95 Nasal Cannula 3.50 09/24/17 23:29 30 92 Nasal Cannula 2.00 09/24/17 22:45 98 26 170/97 (121) 95 Nasal Cannula 2.00 09/24/17 20:34 95 Nasal Cannula 2.00 09/24/17 20:30 57 28 158/94 (115) 90 Room Air 09/24/17 19:20 98.5 94 22 163/110 (127) 90 Physical Exam GENERAL: Obese, male sitting up in bed SKIN: No rashes, ecchymoses or lesions. Cool and dry. Chronic lower extremity skin changes. HEAD: Atraumatic. Normocephalic. No temporal or scalp tenderness. EYES: Pupils equal round and reactive. Extraocular motions intact. No scleral icterus. No injection or drainage. ENT: Nose without bleeding, purulent drainage or septal hematoma. Throat without erythema, tonsillar hypertrophy or exudate. Uvula midline. Airway patent. NECK: Trachea midline. No JVD or lymphadenopathy. Supple, nontender, no meningeal signs. CARDIOVASCULAR: Regular rate and rhythm without murmurs, gallops, or rubs. RESPIRATORY: Bilateral expiratory wheezes and crackles. GASTROINTESTINAL: Abdomen soft, non-tender, nondistended. No hepato-splenomegaly , or palpable masses. No guarding. MUSCULOSKELETAL: 2+ bilateral lower extremity edema NEUROLOGICAL: Awake and alert. Cranial nerves II through XII intact. Motor and sensory grossly within normal limits. Normal speech. Laboratory Laboratory Tests Test 09/24/17 19:46 09/24/17 21:09 09/24/17 23:41 Prothrombin Time 12.6 Prothromb Time International Ratio 1.2 Activated Partial Thromboplast Time 26.2 Blood Urea Nitrogen 16 Creatinine 0.86 Random Glucose 131 Total Protein 6.9 Albumin 3.2 Calcium Level 8.6 Magnesium Level 1.8 Alkaline Phosphatase 119 Aspartate Amino Transf (AST/SGOT) 20 Alanine Aminotransferase (ALT/SGPT) 17 Total Bilirubin 1.0 Sodium Level 142 Potassium Level 3.6 Chloride Level 104 Carbon Dioxide Level 29.1 Anion Gap 9 Estimat Glomerular Filtration Rate 91 Total Creatine Kinase 48 Troponin I LESS THAN 0.02 B-Type Natriuretic Peptide 1570 Lipase 128 White Blood Count 6.7 Red Blood Count 5.32 Hemoglobin 15.8 Hematocrit 48.8 Mean Corpuscular Volume 91.8 Mean Corpuscular Hemoglobin 29.7 Mean Corpuscular Hemoglobin Concent 32.4 Red Cell Distribution Width 16.6 Platelet Count 103 Mean Platelet Volume 9.7 Neutrophils (%) (Auto) 67.2 Lymphocytes (%) (Auto) 21.7 Monocytes (%) (Auto) 8.8 Eosinophils (%) (Auto) 1.7 Basophils (%) (Auto) 0.6 Neutrophils # (Auto) 4.5 Lymphocytes # (Auto) 1.5 Monocytes # (Auto) 0.6 Eosinophils # (Auto) 0.1 Basophils # (Auto) 0.0 CBC Comment DIFF FINAL Differential Comment Blood Gas Puncture Site RT RADIAL Blood Gas Patient Temperature 98.6 Blood Gas HCO3 33 Blood Gas Base Excess 7.3 Blood Gas Oxygen Saturation 93 Arterial Blood pH 7.37 Arterial Blood Partial Pressure CO2 58 Arterial Blood Partial Pressure O2 95 Arterial Blood Oxygen Content 22.0 Arterial Blood Carboxyhemoglobin 3.5 Arterial Blood Methemoglobin 0.6 Blood Gas Hemoglobin 16.7 Oxygen Delivery Device NASAL CANNULA Blood Gas Liter Flow 3.5 Result Diagram: 09/24/17210809/24/171945 Caprini VTE Risk Assessment Caprini VTE Risk Assessment: Mod/High Risk (score >= 2) Caprini Risk Assessment Model Point Value = 1 Point Value = 2 Point Value = 3 Point Value = 5 Age 41-60 Minor surgery BMI > 25 kg/m2 Swollen legs Varicose veins or History of unexplained or recurrent spontaneous Oral contraceptives or hormone replacement Sepsis (< 1 month) Serious lung disease, including pneumonia (< 1 month) Abnormal pulmonary function Acute myocardial infarction Congestive heart failure (< 1 month) History of inflammatory bowel disease Medical patient at bed rest Age 61-74 Arthroscopic surgery Major open surgery (> 45 min) Laparoscopic surgery (> 45 min) Malignancy Confined to bed (> 72 hours) Immobilizing plaster cast Central venous access Age >= 75 History of VTE Family history of VTE Factor V Leiden Prothrombin [id number] Lupus anticoagulant Anticardiolipin antibodies Elevated serum homocysteine Heparin-induced thrombocytopenia Other congenital or acquired thrombophilia Stroke (< 1 month) Elective arthroplasty Hip, pelvis, or leg fracture Acute spinal cord injury (< 1 month) Prophylaxis Regimen Total Risk Factor Score Risk Level Prophylaxis Regimen 0-1 Low Early ambulation 2 Moderate Order ONE of the following: *Sequential Compression Device (SCD) *Heparin 5000 units SQ BID 3-4 Higher Order ONE of the following medications: *Heparin 5000 units SQ TID *Enoxaparin/Lovenox 40 mg SQ daily (WT < 150 kg, CrCl > 30 mL/min) *Enoxaparin/Lovenox 30 mg SQ daily (WT < 150 kg, CrCl > 10-29 mL/min) *Enoxaparin/Lovenox 30 mg SQ BID (WT < 150 kg, CrCl > 30 mL/min) AND/OR *Sequential Compression Device (SCD) 5 or more Highest Order ONE of the following medications: *Heparin 5000 units SQ TID (Preferred with Epidurals) *Enoxaparin/Lovenox 40 mg SQ daily (WT < 150 kg, CrCl > 30 mL/min) *Enoxaparin/Lovenox 30 mg SQ daily (WT < 150 kg, CrCl > 10-29 mL/min) *Enoxaparin/Lovenox 30 mg SQ BID (WT < 150 kg, CrCl > 30 mL/min) AND *Sequential Compression Device (SCD) Assessment and Plan Assessment and Plan Assessment/plan: 1. Shortness of breath/CHF/?COPD Patient denies history of COPD however ABG reveals hypercapnia and the patient has a prescription for Spiriva for which he has not filled secondary to the expense of the medication Chest x-ray significant for cardiomegaly with early interstitial edema, personally reviewed BNP 1570 During his last hospitalization in April, the patient was evaluated by cardiology who noted that the stress test was negative for evidence of ischemia consistent with nonischemic cardiomyopathy. Patient was optimized on medical therapy prior to discharge. IV Lasix DuoNeb's Supplemental oxygen as needed Continue home Coreg 2. Hypertension Continue home medications FEN Heart healthy diet Electrolytes: monitor and replete prn Heparin Emily Chun MD Sep 25, 2017 01:07
[2017-09-25] MEDS ORDERED: RESP: ALBUTEROL 2.5 MG/IPRATROPIUM 0.5 MG NEB (PRN) NEB (01:15)
[2017-09-25 05:30] LABS: AUTOMATED NEUTROPHIL # 4.4 TH/MM3 (1.8-7.7); BASOPHIL # 0.1 TH/MM3 (0-0.2); BASOPHIL % 0.8 % (0.0-2.0); EOSINOPHIL # 0.1 TH/MM3 (0-0.4); EOSINOPHIL % 1.8 % (0.0-4.0); HEMATOCRIT 50.3 % (39.0-51.0); HEMOGLOBIN 16.5 GM/DL (13.0-17.0); LYMPHOCYTE # 1.7 TH/MM3 (1.0-4.8); MEAN CELL VOLUME 92.3 FL (80.0-100.0); MEAN CORPUSCULAR HEMOGLOBIN 30.3 PG (27.0-34.0); MEAN CORPUSCULAR HGB CONC 32.8 % (32.0-36.0); MONO % 9.2 % (0.0-8.0); MONOCYTE # 0.6 TH/MM3 (0-0.9); NEUT % 63.2 % (16.0-70.0); PLATELET COUNT 118 TH/MM3 (150-450); RED BLOOD COUNT 5.45 MIL/MM3 (4.50-5.90); RED CELL DISTRIBUTION WIDTH 16.5 % (11.6-17.2)
[2017-09-25 05:43] LABS: BICARBONATE 33.4 MEQ/L (21.0-32.0); CALCIUM 8.5 MG/DL (8.5-10.1); CREATININE 0.78 MG/DL (0.60-1.30)
[2017-09-25] MEDS: CARVEDILOL 12.5 MG TAB PO SCH ×2 (07:53→21:00)
[2017-09-25] MEDS: POTASSIUM CHLORIDE 10 MEQ CONTROLLED RELEASE TAB PO SCH (07:54)
[2017-09-25] MEDS: HEPARIN SODIUM - SQ 10,000 UNITS/ML VIAL SQ SCH ×2 (07:54→14:49)
[2017-09-25] MEDS: SODIUM CHLORIDE 0.9% FLUSH 10 ML FLUSH IV FLUSH SCH ×2 (07:55→21:58)
[2017-09-25] MEDS: TIOTROPIUM BROMIDE 18 MCG INH INH SCH (07:55)
[2017-09-25] MEDS: ASPIRIN 81 MG CHEW TAB CHEW SCH (07:55)
[2017-09-25] MEDS: FUROSEMIDE 40 MG/4 ML VIAL IVP SCH ×2 (07:56→16:57)
--- NOTE | 2017-09-25 08:03 | EKG ---
Date Performed: 09/24/2017 Time Performed: 19:37:04 PTAGE: 62 years EKG: Sinus rhythm WITH FIRST DEGREE AV BLOCK MARKED LEFT AXIS DEVIATION ANTEROSEPTAL MYOCARDIAL INFARCTION MODERATE T- WAVE ABNORMALITY, CONSIDER LATERAL ISCHEMIA ABNORMAL ECG PREVIOUS TRACING : 05/01/2017 05.14 DOCTOR: Osmar Simpson Interpretating Date/Time 09/25/2017 08:01:40
[2017-09-25] MEDS: ACETAMINOPHEN 325 MG TAB PO PRN (21:59)
[2017-09-26] VITALS (11 sets, daily range): BP systolic 104–150; BP diastolic 63–109; PULSE 42–86; RESP 14–22; TEMP 97.4–98.1; O2SAT 90–97
[2017-09-26] MEDS: HEPARIN SODIUM - SQ 10,000 UNITS/ML VIAL SQ SCH ×4 (00:48→22:30)
[2017-09-26] MEDS: ACETAMINOPHEN 325 MG TAB PO PRN ×2 (02:48→20:58)
[2017-09-26 07:57] LABS: BICARBONATE 32.4 MEQ/L (21.0-32.0); CALCIUM 8.8 MG/DL (8.5-10.1); CREATININE 0.84 MG/DL (0.60-1.30)
[2017-09-26] MEDS: TIOTROPIUM BROMIDE 18 MCG INH INH SCH (08:46)
[2017-09-26] MEDS: ASPIRIN 81 MG CHEW TAB CHEW SCH (08:46)
[2017-09-26] MEDS: FUROSEMIDE 40 MG/4 ML VIAL IVP SCH ×2 (08:46→19:30)
[2017-09-26] MEDS: SODIUM CHLORIDE 0.9% FLUSH 10 ML FLUSH IV FLUSH SCH ×2 (08:47→20:59)
[2017-09-26] MEDS: CARVEDILOL 12.5 MG TAB PO SCH ×2 (08:47→20:58)
[2017-09-26] MEDS: POTASSIUM CHLORIDE 10 MEQ CONTROLLED RELEASE TAB PO SCH (08:48)
--- NOTE | 2017-09-26 09:17 | HHI.PR ---
Subjective Remarks Follow-up for CHF exacerbation. The patient reports minimal improvement overnight. He reports continued shortness of breath and dyspnea on exertion, however denies any orthopnea today. Reports minimal improvement of his lower extremity edema. His O2 sat is stable in room air. Denies any chest pain. Denies any cough, fevers, or chills. 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 He admits to sometimes only taking his Lasix once a day although it is prescribed twice a day. He also admits to drinking a lot of water, he states he just likes the taste of ice cold water. He denies adding any salt to his meals, but states he does eat out a lot and has noticed his food is sometimes very salty. He does not check his daily weights. He states he has never been told he should restrict his fluids or check his weights. He has no other medical complaints at this time. He does not feel ready for discharge today. Also discussed patient may need AICD. He specifically states "no I don't want that crap". Thoroughly explained that with his CHF, he is at risk for arrhythmia and sudden cardiac . He continues to decline any evaluation for AICD. Objective Vitals Vital Signs Date Time Temp Pulse Resp B/P (MAP) Pulse Ox O2 Delivery O2 Flow Rate FiO2 09/26/17 09:01 97 21 09/26/17 07:38 97.4 86 20 132/88 (103) 90 09/26/17 04:53 98.1 48 16 150/109 (123) 94 09/26/17 04:00 74 09/26/17 01:07 98.0 42 14 142/97 (112) 92 09/25/17 20:34 98.0 42 14 130/78 (95) 93 09/25/17 15:38 98.0 47 24 108/58 (75) 94 09/25/17 10:34 97.3 47 22 110/67 (81) 94 09/25/17 09:25 97.8 56 20 120/81 (94) 99 I/O 09/25/17 09/25/17 09/25/17 09/26/17 09/26/17 09/26/17 07:00 15:00 23:00 07:00 15:00 23:00 Intake Total 300 ml 720 ml Output Total 850 ml 1600 ml Balance -850 ml -1300 ml 720 ml Intake Oral 300 ml 720 ml Output Urine Total 850 ml 1600 ml # Voids 1 2 5 # Bowel Movements 0 Result Diagram: 09/25/17 0347 09/26/17 0650 Imaging Last Impressions Chest X-Ray 09/24/171922 Signed Impressions: Service Date/Time: Sunday, September 24, 2017 19:51 - CONCLUSION: 1. Cardiomegaly with questionable early interstitial edema. Karri Bangura MD Objective Remarks GENERAL: Well-nourished, well-developed pleasant male patient in [facility]. SKIN: Warm and dry. No rash. HEENT: Normocephalic. Atraumatic. Pupils equal and round. Mucous membranes pink and moist. NECK: Trachea midline. CARDIOVASCULAR: Regular rate and rhythm. No murmur appreciated. RESPIRATORY: No accessory muscle use. Bibasilar crackles. Breath sounds equal bilaterally. GASTROINTESTINAL: Abdomen soft, non-tender, nondistended. Normoactive bowel sounds x4. MUSCULOSKELETAL: No obvious deformities. 3+ bilateral lower extremity edema. Bilateral calves nontender to palpation. NEUROLOGICAL: Awake and alert. No obvious cranial nerve deficits. Motor grossly within normal limits. Normal speech. PSYCHIATRIC: Appropriate mood and affect; insight and judgment normal. Medications and IVs Current Medications Medications (Trade) Dose Ordered Sig/Patrick Route Start Time Stop Time Status Last Admin (NS Flush) 2 ml UNSCH PRN IV FLUSH 09/24/17 23:45 (NS Flush) 2 ml BID IV FLUSH 09/25/17 09:00 09/26/17 08:47 (Lasix Inj) 40 mg BID@ IVP 09/25/17 09:00 09/26/17 08:46 (Heparin Inj) 5,000 units Q8H SQ 09/24/17 23:45 09/26/17 08:45 (Aspirin Chew) 162 mg DAILY CHEW 09/25/17 09:00 09/26/17 08:46 (Coreg) 25 mg BID PO 09/25/17 09:00 09/26/17 08:47 (KCl) 10 meq DAILY PO 09/25/17 09:00 09/26/17 08:48 (Spiriva Inh) 18 mcg DAILY INH 09/25/17 09:00 09/26/17 08:46 (Duoneb Neb) 1 ampule Q4HR NEB PRN NEB 09/25/17 01:15 09/25/17 01:35 (Tylenol) 650 mg Q4H PRN PO 09/25/17 17:30 09/26/17 02:48 A/P Assessment and Plan 62-year-old male with history of HTN, CHF (last echo done on 05/01/17 showed an EF of 20%) and hypertension presents to the emergency department for evaluation of bilateral lower extremity edema and shortness of breath. Acute Systolic CHF Exacerbation, Nonischemic Cardiomyopathy: EMR reviewed, echo 05/01/17 shows EF 20%. NST 05/02/17 negative for ischemia. -CXR reviewed, shows cardiomegaly with suspected early interstitial edema. BNP elevated at 1570. -Continue diuresis with IV Lasix 40mg bid with KCl replacement -Monitor Is&Os -Monitor on telemetry -Fluid restrictions -Check daily weights -Continue patient's aspirin, coreg, patient unable to tolerate AYE in the past due to cough -Needs to follow up as outpatient with cardiology, previously seen by Dr. Mandujano on admission in -Discussed patient may need AICD, he declines at this time despite risk of arrhythmia and sudden cardiac -improving, however not yet ready for discharge, continue diuresis Hypertension: chronic -continue patient's Coreg -monitor BP, adjust antihypertensives as needed DVT Prophylaxis: Heparin sq Risa Blanco PA-C Sep 26, 2017 9:17 am
[2017-09-26] MEDS: ACETAMINOPHEN/HYDROcodone 325 MG/5 MG TAB PO PRN (22:29)
[2017-09-27] VITALS (13 sets, daily range): BP systolic 118–137; BP diastolic 73–82; PULSE 46–94; RESP 16–20; TEMP 98–98.8; O2SAT 91–98
[2017-09-27] MEDS: ACETAMINOPHEN/HYDROcodone 325 MG/5 MG TAB PO PRN ×2 (05:56→17:38)
[2017-09-27] MEDS: CARVEDILOL 12.5 MG TAB PO SCH ×2 (09:21→21:00)
[2017-09-27] MEDS: ASPIRIN 81 MG CHEW TAB CHEW SCH (09:21)
[2017-09-27] MEDS: POTASSIUM CHLORIDE 10 MEQ CONTROLLED RELEASE TAB PO SCH (09:22)
[2017-09-27] MEDS: FUROSEMIDE 40 MG/4 ML VIAL IVP SCH ×2 (09:23→17:38)
[2017-09-27] MEDS: SODIUM CHLORIDE 0.9% FLUSH 10 ML FLUSH IV FLUSH SCH ×2 (09:23→22:45)
[2017-09-27] MEDS: TIOTROPIUM BROMIDE 18 MCG INH INH SCH (09:25)
[2017-09-27] MEDS: HEPARIN SODIUM - SQ 10,000 UNITS/ML VIAL SQ SCH ×3 (09:43→22:44)
--- NOTE | 2017-09-27 11:53 | PD.CONS ---
HPI Consult Requested By Primary Care Physician No Primary Care Physician History of Present Illness 62-year-old male with a past medical history of NICM who presented for CHF exacerbation. Back in April the patient was found to have an EF of 20%. A Lexiscan was done at that time which showed no ischemia. The patient presented with a one-week history of worsening lower extremity edema, abdominal distention , and shortness of breath. He has been given IV Lasix here and his breathing is much improved, but still complains of a lot of lower extremity edema. 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 Telemetry shows occasional to frequent PVCs and some bradycardia. He reports he has not been checking his weights daily. Review of Systems Negative except as stated in HPI Past Family Social History Allergies: Coded Allergies: No Known Allergies (Unverified , 04/30/17) Past Medical History Nonischemic cardiomyopathy Past Surgical History None Reported Medications Reported Meds & Active Scripts Active Spiriva Handihaler (Tiotropium Inh) 18 Mcg Cap 18 Mcg INH DAILY 30 Days 1 capsule = 18 mcg [Albuterol Hfa Inh] 60 PUFF/8 GM Aero 2 Puff INH Q6HR Lasix (Furosemide) 40 Mg Tab 40 Mg PO BID 30 Days Tgt Aspirin (Aspirin) 81 Mg Chw 162 Mg CHEW DAILY 90 Days Reported Klor-Con 10 (Potassium Chloride) 10 Meq Tab 10 Meq PO DAILY Carvedilol 25 Mg Tab 25 Mg BID Active Ordered Medications Current Medications Medications (Trade) Dose Ordered Sig/Patrick Route Start Time Stop Time Status Last Admin (NS Flush) 2 ml UNSCH PRN IV FLUSH 09/24/17 23:45 (NS Flush) 2 ml BID IV FLUSH 09/25/17 09:00 09/27/17 09:23 (Lasix Inj) 40 mg BID@ IVP 09/25/17 09:00 09/27/17 09:23 (Heparin Inj) 5,000 units Q8H SQ 09/24/17 23:45 09/27/17 09:43 (Aspirin Chew) 162 mg DAILY CHEW 09/25/17 09:00 09/27/17 09:21 (Coreg) 25 mg BID PO 09/25/17 09:00 09/27/17 09:21 (KCl) 10 meq DAILY PO 09/25/17 09:00 09/27/17 09:22 (Spiriva Inh) 18 mcg DAILY INH 09/25/17 09:00 09/27/17 09:25 (Duoneb Neb) 1 ampule Q4HR NEB PRN NEB 09/25/17 01:15 09/25/17 01:35 (Tylenol) 650 mg Q4H PRN PO 09/25/17 17:30 09/26/17 20:58 ([place] 5-325 Mg) 1 tab Q4HR PRN PO 09/26/17 21:30 09/27/17 05:56 Family History Negative for CAD/DM Social History Smokes approximally one pack per day. Occasional alcohol. Denies illicit drugs. Physical Exam Vital Signs Vital Signs Date Time Temp Pulse Resp B/P (MAP) Pulse Ox O2 Delivery O2 Flow Rate FiO2 09/27/17 08:33 98.2 70 18 126/82 (97) 98 09/27/17 07:45 94 21 09/27/17 04:54 98.3 94 20 137/73 (94) 92 09/26/17 23:01 97.8 76 20 129/83 (98) 94 09/26/17 20:01 97.7 53 20 125/63 (83) 96 09/26/17 16:37 97.6 50 22 124/64 (84) 95 09/26/17 15:50 47 09/26/17 11:54 97.5 50 20 104/67 (79) 94 Result Diagram: 09/25/17 0347 09/26/17 0650 Assessment and Plan Assessment and Plan 62-year-old male with a past medical history of NICM who presented for CHF exacerbation Acute exacerbation of chronic systolic CHF: So far patient has been diuresing well with IV Lasix 40 mg twice daily. Will continue to see how patient does on this, may consider adjusting diuretic regimen to Bumex as an alternative or addition of metolazone. Patient educated on daily weights, close outpatient follow-up, lifestyle modifications. Non ischemic cardiomyopathy: Previous EF 05/10 was 20%. Patient has been on carvedilol since then. Repeat echocardiogram to see if EF has improved or if BP needs to be consulted for possible AICD. Decrease carvedilol to 12.5 mg with bradycardia and add 10 mg of lisinopril. PVCs: Continue beta-prema. Consider outpatient Holter monitor. Aric Alvarez Sep 27, 2017 11:53
--- NOTE | 2017-09-27 16:14 | HHI.PR ---
Subjective Remarks Patient with CHF exacerbation. Patient seen and examined. Patient still with significant lower extremity swelling. Reports breathing is about the same, still SOB. Denies any chest pain. Denies any nausea, vomiting or abdominal pain. Denies any urinary difficulties. Objective Vitals Vital Signs Date Time Temp Pulse Resp B/P (MAP) Pulse Ox O2 Delivery O2 Flow Rate FiO2 09/27/17 11:57 98.6 68 20 129/80 (96) 96 09/27/17 08:33 98.2 70 18 126/82 (97) 98 09/27/17 07:45 94 21 09/27/17 04:54 98.3 94 20 137/73 (94) 92 09/26/17 23:01 97.8 76 20 129/83 (98) 94 09/26/17 20:01 97.7 53 20 125/63 (83) 96 09/26/17 16:37 97.6 50 22 124/64 (84) 95 I/O 09/26/17 09/26/17 09/26/17 09/27/17 09/27/17 09/27/17 07:00 15:00 23:00 07:00 15:00 23:00 Intake Total 720 ml 360 ml 500 ml Output Total 500 ml Balance 720 ml 360 ml 0 ml Intake Oral 720 ml 360 ml 500 ml Output Urine Total 500 ml # Voids 5 3 Result Diagram: 09/25/17 0347 09/26/17 0650 Imaging Last Impressions Chest X-Ray 09/24/171922 Signed Impressions: Service Date/Time: Sunday, September 24, 2017 19:51 - CONCLUSION: 1. Cardiomegaly with questionable early interstitial edema. Karri Bangura MD Objective Remarks GENERAL: Well-nourished, well-developed pleasant male patient in [facility]. Awake and alert. SKIN: Warm and dry. No rash. HEENT: Normocephalic. Atraumatic. Pupils equal and round. Mucous membranes pink and moist. NECK: Trachea midline. CARDIOVASCULAR: Regular rate and rhythm. No murmur appreciated. RESPIRATORY: Nonlabored. Bibasilar crackles. (+)Wheezing noted in multiple lung burrows. GASTROINTESTINAL: Abdomen soft, non-tender, nondistended. Normoactive bowel sounds x4. MUSCULOSKELETAL: No obvious deformities. 2-3+ bilateral lower extremity edema. Trace edema bilateral thighs. Bilateral calves nontender to palpation. NEUROLOGICAL: Awake and alert. No obvious cranial nerve deficits. Motor grossly within normal limits. Normal speech. PSYCHIATRIC: Appropriate mood and affect; insight and judgment normal. Medications and IVs Current Medications Medications (Trade) Dose Ordered Sig/Patrick Route Start Time Stop Time Status Last Admin (NS Flush) 2 ml UNSCH PRN IV FLUSH 09/24/17 23:45 (NS Flush) 2 ml BID IV FLUSH 09/25/17 09:00 09/27/17 09:23 (Lasix Inj) 40 mg BID@ IVP 09/25/17 09:00 09/27/17 09:23 (Heparin Inj) 5,000 units Q8H SQ 09/24/17 23:45 09/27/17 15:58 (Aspirin Chew) 162 mg DAILY CHEW 09/25/17 09:00 09/27/17 09:21 (KCl) 10 meq DAILY PO 09/25/17 09:00 09/27/17 09:22 (Spiriva Inh) 18 mcg DAILY INH 09/25/17 09:00 09/27/17 09:25 (Duoneb Neb) 1 ampule Q4HR NEB PRN NEB 09/25/17 01:15 09/25/17 01:35 (Tylenol) 650 mg Q4H PRN PO 09/25/17 17:30 09/26/17 20:58 ([place] 5-325 Mg) 1 tab Q4HR PRN PO 09/26/17 21:30 09/27/17 05:56 (Coreg) 12.5 mg BID PO 09/27/17 21:00 (Prinivil) 10 mg DAILY PO 09/28/17 09:00 A/P Assessment and Plan 62-year-old male with history of HTN, CHF (last echo done on 05/01/17 showed an EF of 20%) and hypertension presents to the emergency department for evaluation of bilateral lower extremity edema and shortness of breath. Acute Systolic CHF Exacerbation, Nonischemic Cardiomyopathy: EMR reviewed, echo 05/01/17 shows EF 20%. NST 05/02/17 negative for ischemia. -CXR reviewed, shows cardiomegaly with suspected early interstitial edema. BNP elevated at 1570. -Continue diuresis with IV Lasix 40mg bid with KCl replacement. BNP improved to 888. 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 -improving, however not yet ready for discharge, continue diuresis -Home oxygen walk test completed patient does not qualify for oxygen Bradycardia -Dose Coreg decreased to 12.5 mg twice daily -Continue to monitor heart rate Hypertension: chronic -Continue on home medication -monitor BP, adjust antihypertensives as needed COPD in exacerbation Ongoing tobaccoism -Discussed importance of smoking cessation -Scheduled duo nebs every 4 hours while awake -Continue on Spiriva -Begin Symbicort BID -Short course of oral steroids, prednisone 40 mg daily -Supplemental oxygen to maintain O2 sats greater than 92% -monitor DVT Prophylaxis: Heparin sq Discharge Planning Discharge pending clinical improvement and cardiology clearance Riri Herrera Sep 27, 2017 16:14
[2017-09-27] MEDS ORDERED: predniSONE 20 MG TAB PO ONE (16:15)
--- NOTE | 2017-09-27 17:02 | ECHRPT ---
Indication: HEART FAILURE CONCLUSIONS Moderately dilated left ventricle. Mild concentric left ventricular hypertrophy. The left ventricular systolic function is severely reduced with an estimated ejection fraction less than 20%. Trace mitral valve regurgitation. The pulmonary valve is not well visualized. BP: / HR: Rhythm: MEASUREMENTS (Male / Female) Normal Values Technical Quality: 2D ECHO LV Diastolic Diameter PLAX 6.7 cm 4.2 - 5.9 / 3.9 - 5.3 cm LV Systolic Diameter PLAX 6.3 cm IVS Diastolic Thickness 1.6 cm 0.6 - 1.0 / 0.6 - 0.9 cm LVPW Diastolic Thickness 0.9 cm 0.6 - 1.0 / 0.6 - 0.9 cm LV Relative Wall Thickness 0.4 LA Systolic Diameter LX 4.5 cm 3.0 - 4.0 / 2.7 - 3.8 cm M-MODE Aortic Root Diameter MM 3.8 cm AV Cusp Separation MM 2.2 cm DOPPLER Mitral E Point Velocity 115.0 cm/s Mitral A Point Velocity 25.9 cm/s Mitral E to A Ratio 4.4 TR Peak Velocity 255.0 cm/s TR Peak Gradient 26.0 mmHg FINDINGS LEFT VENTRICLE Moderately dilated left ventricle. Mild concentric left ventricular hypertrophy. The left ventricular systolic function is severely reduced with an estimated ejection fraction less than 20%. RIGHT VENTRICLE Normal right ventricular size and systolic function. LEFT ATRIUM The left atrial size is normal. RIGHT ATRIUM The right atrial size is normal. ATRIAL SEPTUM Normal atrial septal thickness without atrial level shunting by limited color doppler interrogation. AORTA The aortic root and proximal ascending aorta are normal in size on limited imaging. MITRAL VALVE Trace mitral valve regurgitation. AORTIC VALVE Trileaflet aortic valve. No aortic valve stenosis or regurgitation. TRICUSPID VALVE Structurally normal tricuspid valve. No tricuspid valve stenosis or regurgitation. PULMONARY VALVE The pulmonary valve is not well visualized. VESSELS The inferior vena cava is normal in size. PERICARDIUM No pericardial effusion. Osmar Simpson MD, FACC (Electronically Signed) Final Date:27 September 2017 17:01
[2017-09-27] MEDS: RESP: ALBUTEROL 2.5 MG/IPRATROPIUM 0.5 MG NEB (SCH) NEB (19:28)
[2017-09-27] MEDS: DOCUSATE SODIUM 50 MG/SENNA 8.6 MG TAB PO SCH (21:00)
[2017-09-27] MEDS: BUDESONIDE-FORMOTEROL 160/4.5 MCG INHALER INH SCH (22:44)
[2017-09-28] VITALS (9 sets, daily range): BP systolic 114–151; BP diastolic 60–80; PULSE 49–87; RESP 18–20; TEMP 97.9–98.2; O2SAT 93–97
[2017-09-28] MEDS: RESP: ALBUTEROL 2.5 MG/IPRATROPIUM 0.5 MG NEB (SCH) NEB ×4 (07:14→20:25)
[2017-09-28] MEDS: HEPARIN SODIUM - SQ 10,000 UNITS/ML VIAL SQ SCH ×3 (07:45→22:48)
[2017-09-28] MEDS: DOCUSATE SODIUM 50 MG/SENNA 8.6 MG TAB PO SCH ×2 (09:00→20:42)
[2017-09-28] MEDS: ASPIRIN 81 MG CHEW TAB CHEW SCH (09:00)
[2017-09-28] MEDS: POTASSIUM CHLORIDE 10 MEQ CONTROLLED RELEASE TAB PO SCH (09:00)
[2017-09-28] MEDS ORDERED: LISINOPRIL 10 MG TAB PO SCH (09:00)
[2017-09-28] MEDS: SODIUM CHLORIDE 0.9% FLUSH 10 ML FLUSH IV FLUSH SCH ×2 (09:00→20:40)
[2017-09-28] MEDS: predniSONE 20 MG TAB PO SCH (09:00)
[2017-09-28] MEDS: TIOTROPIUM BROMIDE 18 MCG INH INH SCH (09:00)
[2017-09-28] MEDS: BUDESONIDE-FORMOTEROL 160/4.5 MCG INHALER INH SCH ×2 (09:00→20:40)
[2017-09-28] MEDS: FUROSEMIDE 40 MG/4 ML VIAL IVP SCH ×2 (09:00→16:37)
[2017-09-28] MEDS: CARVEDILOL 12.5 MG TAB PO SCH (09:00)
--- NOTE | 2017-09-28 10:12 | PD.CARD.PN ---
Subjective Subjective Remarks Breathing is better. Lower extremity edema is still significantly worse than baseline 1 week. Urine output has slowed since admission. (Aric Alvarez) Objective Medications Current Medications Medications (Trade) Dose Ordered Sig/Patrick Route Start Time Stop Time Status Last Admin (NS Flush) 2 ml UNSCH PRN IV FLUSH 09/24/17 23:45 (NS Flush) 2 ml BID IV FLUSH 09/25/17 09:00 09/28/17 09:00 (Lasix Inj) 40 mg BID@ IVP 09/25/17 09:00 09/28/17 09:00 (Heparin Inj) 5,000 units Q8H SQ 09/24/17 23:45 09/28/17 07:45 (Aspirin Chew) 162 mg DAILY CHEW 09/25/17 09:00 09/28/17 09:00 (KCl) 10 meq DAILY PO 09/25/17 09:00 09/28/17 09:00 (Spiriva Inh) 18 mcg DAILY INH 09/25/17 09:00 09/28/17 09:00 (Duoneb Neb) 1 ampule Q4HR NEB PRN NEB 09/25/17 01:15 09/25/17 01:35 (Tylenol) 650 mg Q4H PRN PO 09/25/17 17:30 09/26/17 20:58 ([place] 5-325 Mg) 1 tab Q4HR PRN PO 09/26/17 21:30 09/27/17 17:38 (Coreg) 12.5 mg BID PO 09/27/17 21:00 09/28/17 09:00 (Prinivil) 10 mg DAILY PO 09/28/17 09:00 09/28/17 09:00 (Duoneb Neb) 1 ampule Q4HR WHILE AWAKE NEB NEB 09/27/17 20:00 09/28/17 07:14 (Deltasone) 40 mg DAILY PO 09/28/17 09:00 09/28/17 09:00 (Symbicort 160-4.5 Mcg Inh) 2 puff Q12HR INH 09/27/17 21:00 09/28/17 09:00 (Subha-Colace) 1 tab BID PO 09/27/17 21:00 09/28/17 09:00 Vital Signs / I&O Vital Signs Date Time Temp Pulse Resp B/P (MAP) Pulse Ox O2 Delivery O2 Flow Rate FiO2 09/28/17 08:58 98.2 54 20 148/67 (94) 97 09/28/17 05:46 87 09/28/17 04:04 97.9 51 18 151/80 (103) 95 09/28/17 00:00 50 09/27/17 23:38 98.2 54 18 128/78 (95) 94 09/27/17 22:49 59 16 91 09/27/17 21:05 98.8 56 19 135/82 (99) 97 09/27/17 20:00 49 09/27/17 19:32 98 Nasal Cannula 2.00 09/27/17 16:45 98.0 50 18 118/81 (93) 96 09/27/17 15:00 49 09/27/17 11:57 98.6 68 20 129/80 (96) 96 I/O 09/27/17 09/27/17 09/27/17 09/28/17 09/28/17 09/28/17 07:00 15:00 23:00 07:00 15:00 23:00 Intake Total 11 ml 1000 ml Output Total 500 ml 275 ml Balance -489 ml 725 ml Intake Oral 11 ml 1000 ml Output Urine Total 500 ml 275 ml Physical Exam GENERAL: Well-developed well-nourished. Obese. In no acute distress. NECK: No carotid bruits. No JVD. CARDIOVASCULAR: Regular rate and rhythm. No murmur appreciated. RESPIRATORY: No accessory muscle use. Clear to auscultation. Breath sounds equal bilaterally. MUSCULOSKELETAL: No clubbing or cyanosis. 2+ edema. NEUROLOGICAL: Awake and alert. Normal speech. Imaging Last Impressions Chest X-Ray 09/24/171922 Signed Impressions: Service Date/Time: Sunday, September 24, 2017 19:51 - CONCLUSION: 1. Cardiomegaly with questionable early interstitial edema. Karri Bangura MD (Airc Alvarez) Assessment and Plan Assessment and Plan 62-year-old male with a past medical history of NICM who presented for CHF exacerbation Acute exacerbation of chronic systolic CHF: Continue Lasix twice daily. Diuresis has slowed, will add daily metolazone while admitted, and can consider continuing as needed as outpatient. Monitor I's and O's. Non ischemic cardiomyopathy: EF remains 20% on repeat echo, discussed risks/ benefits of +/- AICD and patient continues to decline any invasive cardiac procedure. Continue carvedilol and lisinopril. PVCs: Continue beta-prema. Consider outpatient Holter monitor. Patient counseled on importance of establishing with physicians as outpatient and compliance with follow-up. Continue diuresis, otherwise nothing further to add from a cardiology standpoint unless patient changes his mind regarding AICD. Discussed Condition With Patient, Dr. Simpson (Aric Alvarez) Assessment and Plan add metolazone monitor Cr and I/O declines ICD, therefore no LifeVest either monitor K+ closely HR 50's - DC BB increase ACEi (Osmar Simpson MD) Aric Alvarez Sep 28, 2017 10:12 Osmar Simpson MD Sep 28, 2017 10:30
[2017-09-28] MEDS ORDERED: METOLAZONE 5 MG TAB PO SCH (11:00)
[2017-09-28] MEDS: ACETAMINOPHEN/HYDROcodone 325 MG/5 MG TAB PO PRN ×2 (16:37→22:50)
--- NOTE | 2017-09-28 17:31 | HHI.PR ---
Subjective Remarks patient still sob although improving denies cp c/o BL lower extremity edema Objective Vitals Vital Signs Date Time Temp Pulse Resp B/P (MAP) Pulse Ox O2 Delivery O2 Flow Rate FiO2 09/28/17 16:41 98.2 70 20 142/68 (92) 97 09/28/17 12:13 98.2 70 18 142/60 (87) 97 09/28/17 08:58 98.2 54 20 148/67 (94) 97 09/28/17 07:40 78 09/28/17 05:46 87 09/28/17 04:04 97.9 51 18 151/80 (103) 95 09/28/17 00:00 50 09/27/17 23:38 98.2 54 18 128/78 (95) 94 09/27/17 22:49 59 16 91 09/27/17 21:05 98.8 56 19 135/82 (99) 97 09/27/17 20:00 49 09/27/17 19:32 98 Nasal Cannula 2.00 I/O 09/27/17 09/27/17 09/27/17 09/28/17 09/28/17 09/28/17 06:59 14:59 22:59 06:59 14:59 22:59 Intake Total 500 ml 11 ml 1000 ml 240 ml Output Total 500 ml 275 ml Balance 500 ml -489 ml 725 ml 240 ml Intake Oral 500 ml 11 ml 1000 ml Other 240 ml Output Urine Total 500 ml 275 ml # Voids 3 Result Diagram: 09/25/17 0347 09/26/17 0650 Imaging Last Impressions Chest X-Ray 09/24/171922 Signed Impressions: Service Date/Time: Sunday, September 24, 2017 19:51 - CONCLUSION: 1. Cardiomegaly with questionable early interstitial edema. Karri Bangura MD Objective Remarks GENERAL: Well-nourished, well-developed pleasant male patient in NAD. Awake and alert. SKIN: Warm and dry. No rash. HEENT: Normocephalic. Atraumatic. Pupils equal and round. Mucous membranes pink and moist. NECK: Trachea midline. CARDIOVASCULAR: Regular rate and rhythm. No murmur appreciated. RESPIRATORY: Nonlabored. Clear to auscultation but decreased at the bases. No wheezing GASTROINTESTINAL: Abdomen soft, non-tender, nondistended. Normoactive bowel sounds x4. MUSCULOSKELETAL: No obvious deformities. 2-3+ bilateral lower extremity edema. Trace edema bilateral thighs. Bilateral calves nontender to palpation. NEUROLOGICAL: Awake and alert. No obvious cranial nerve deficits. Motor grossly within normal limits. Normal speech. PSYCHIATRIC: Appropriate mood and affect; insight and judgment normal. Medications and IVs Current Medications Medications (Trade) Dose Ordered Sig/Patrick Route Start Time Stop Time Status Last Admin (NS Flush) 2 ml UNSCH PRN IV FLUSH 09/24/17 23:45 (NS Flush) 2 ml BID IV FLUSH 09/25/17 09:00 09/28/17 09:00 (Lasix Inj) 40 mg BID@ IVP 09/25/17 09:00 09/28/17 16:37 (Heparin Inj) 5,000 units Q8H SQ 09/24/17 23:45 09/28/17 16:37 (Aspirin Chew) 162 mg DAILY CHEW 09/25/17 09:00 09/28/17 09:00 (KCl) 10 meq DAILY PO 09/25/17 09:00 09/28/17 09:00 (Spiriva Inh) 18 mcg DAILY INH 09/25/17 09:00 09/28/17 09:00 (Duoneb Neb) 1 ampule Q4HR NEB PRN NEB 09/25/17 01:15 09/25/17 01:35 (Tylenol) 650 mg Q4H PRN PO 09/25/17 17:30 09/26/17 20:58 ([place] 5-325 Mg) 1 tab Q4HR PRN PO 09/26/17 21:30 09/28/17 16:37 (Duoneb Neb) 1 ampule Q4HR WHILE AWAKE NEB NEB 09/27/17 20:00 09/28/17 15:40 (Deltasone) 40 mg DAILY PO 09/28/17 09:00 09/28/17 09:00 (Symbicort 160-4.5 Mcg Inh) 2 puff Q12HR INH 09/27/17 21:00 09/28/17 09:00 (Subha-Colace) 1 tab BID PO 09/27/17 21:00 09/28/17 09:00 (Zaroxolyn) 5 mg BID PO 09/28/17 21:00 (Prinivil) 20 mg DAILY PO 09/29/17 09:00 A/P Assessment and Plan 62-year-old male with history of HTN, CHF (last echo done on 05/01/17 showed an EF of 20%) and hypertension presents to the emergency department for evaluation of bilateral lower extremity edema and shortness of breath. Acute Systolic CHF Exacerbation, Nonischemic Cardiomyopathy: EMR reviewed, echo 05/01/17 shows EF 20%. NST 05/02/17 negative for ischemia. -CXR reviewed, shows cardiomegaly with suspected early interstitial edema. BNP elevated at 1570. -Continue diuresis with IV Lasix 40mg bid with KCl replacement. BNP improved to 888. 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 -improving, however not yet ready for discharge, continue diuresis -Home oxygen walk test completed patient does not qualify for oxygen - 09/28 discussed with cardiology discontinue beta prema due to bradycardia, decline ICD, metholazone added. Monitor creatinine. Bradycardia -Dose Coreg decreased to 12.5 mg twice daily -Continue to monitor heart rate 09/28 Dc BB Hypertension: chronic -Continue on home medication -monitor BP, adjust antihypertensives as needed COPD in exacerbation Ongoing tobaccoism -Discussed importance of smoking cessation -Scheduled duo nebs every 4 hours while awake -Continue on Spiriva -Begin Symbicort BID -Short course of oral steroids, prednisone 40 mg daily -Supplemental oxygen to maintain O2 sats greater than 92% -monitor DVT Prophylaxis: Heparin sq Bossman Troy MD Sep 28, 2017 17:31
[2017-09-28] MEDS: METOLAZONE 5 MG TAB PO SCH (20:41)
[2017-09-29] VITALS: PULSE 50
[2017-09-29 03:07] VITALS: BP 129/92; PULSE 51; RESP 20; TEMP 98; O2SAT 96
[2017-09-29 06:57] LABS: BICARBONATE 32.2 MEQ/L (21.0-32.0); CALCIUM 9.1 MG/DL (8.5-10.1); CREATININE 0.83 MG/DL (0.60-1.30); PHOSPHORUS 4.3 MG/DL (2.5-4.9)
[2017-09-29 07:04] LABS: HEMOGLOBIN 16.1 GM/DL (13.0-17.0); MEAN CELL VOLUME 92.5 FL (80.0-100.0); MEAN CORPUSCULAR HEMOGLOBIN 30.4 PG (27.0-34.0); MEAN CORPUSCULAR HGB CONC 32.9 % (32.0-36.0); MEAN PLATELET VOLUME 10.1 FL (7.0-11.0); PLATELET COUNT 115 TH/MM3 (150-450); RED BLOOD COUNT 5.29 MIL/MM3 (4.50-5.90); RED CELL DISTRIBUTION WIDTH 16.1 % (11.6-17.2); WHITE BLOOD COUNT 7.7 TH/MM3 (4.0-11.0)
[2017-09-29] MEDS: RESP: ALBUTEROL 2.5 MG/IPRATROPIUM 0.5 MG NEB (SCH) NEB ×2 (07:59→11:16)
[2017-09-29 08:00] VITALS: PULSE 55
[2017-09-29 08:01] VITALS: O2SAT 96
[2017-09-29] MEDS: ASPIRIN 81 MG CHEW TAB CHEW SCH (08:15)
[2017-09-29] MEDS: METOLAZONE 5 MG TAB PO SCH (08:16)
[2017-09-29] MEDS: predniSONE 20 MG TAB PO SCH (08:16)
[2017-09-29] MEDS: POTASSIUM CHLORIDE 10 MEQ CONTROLLED RELEASE TAB PO SCH (08:16)
[2017-09-29] MEDS: ACETAMINOPHEN/HYDROcodone 325 MG/5 MG TAB PO PRN (08:19)
[2017-09-29] MEDS: TIOTROPIUM BROMIDE 18 MCG INH INH SCH (08:20)
[2017-09-29] MEDS: BUDESONIDE-FORMOTEROL 160/4.5 MCG INHALER INH SCH (08:20)
[2017-09-29] MEDS: HEPARIN SODIUM - SQ 10,000 UNITS/ML VIAL SQ SCH (08:22)
[2017-09-29] MEDS: DOCUSATE SODIUM 50 MG/SENNA 8.6 MG TAB PO SCH (08:23)
[2017-09-29] MEDS: SODIUM CHLORIDE 0.9% FLUSH 10 ML FLUSH IV FLUSH SCH (08:23)
[2017-09-29] MEDS: FUROSEMIDE 40 MG/4 ML VIAL IVP SCH (08:23)
[2017-09-29 08:28] VITALS: BP 120/60; PULSE 90; RESP 18; TEMP 98.2; O2SAT 98
[2017-09-29] MEDS ORDERED: LISINOPRIL 10 MG TAB PO SCH (09:00)
--- NOTE | 2017-09-29 09:46 | PD.CARD.PN ---
Subjective Subjective Remarks Patient reports much better diuresis and breathing is improved after addition of metolazone yesterday. No chest pain or palpitations overnight. (Aric Alvarez) Objective Medications Current Medications Medications (Trade) Dose Ordered Sig/Patrick Route Start Time Stop Time Status Last Admin (NS Flush) 2 ml UNSCH PRN IV FLUSH 09/24/17 23:45 (NS Flush) 2 ml BID IV FLUSH 09/25/17 09:00 09/29/17 08:23 (Lasix Inj) 40 mg BID@ IVP 09/25/17 09:00 09/29/17 08:23 (Heparin Inj) 5,000 units Q8H SQ 09/24/17 23:45 09/29/17 08:22 (Aspirin Chew) 162 mg DAILY CHEW 09/25/17 09:00 09/29/17 08:15 (KCl) 10 meq DAILY PO 09/25/17 09:00 09/29/17 08:16 (Spiriva Inh) 18 mcg DAILY INH 09/25/17 09:00 09/29/17 08:20 (Duoneb Neb) 1 ampule Q4HR NEB PRN NEB 09/25/17 01:15 09/25/17 01:35 (Tylenol) 650 mg Q4H PRN PO 09/25/17 17:30 09/26/17 20:58 ([place] 5-325 Mg) 1 tab Q4HR PRN PO 09/26/17 21:30 09/29/17 08:19 (Duoneb Neb) 1 ampule Q4HR WHILE AWAKE NEB NEB 09/27/17 20:00 09/29/17 07:59 (Deltasone) 40 mg DAILY PO 09/28/17 09:00 09/29/17 08:16 (Symbicort 160-4.5 Mcg Inh) 2 puff Q12HR INH 09/27/17 21:00 09/29/17 08:20 (Subha-Colace) 1 tab BID PO 09/27/17 21:00 09/28/17 09:00 (Zaroxolyn) 5 mg BID PO 09/28/17 21:00 09/29/17 08:16 (Prinivil) 20 mg DAILY PO 09/29/17 09:00 09/29/17 08:17 Vital Signs / I&O Vital Signs Date Time Temp Pulse Resp B/P (MAP) Pulse Ox O2 Delivery O2 Flow Rate FiO2 09/29/17 08:28 98.2 90 18 120/60 (80) 98 09/29/17 08:01 96 Nasal Cannula 3.00 09/29/17 03:07 98.0 51 20 129/92 (104) 96 09/29/17 00:00 50 09/28/17 22:34 98.0 49 20 116/68 (84) 93 09/28/17 20:44 98.1 50 20 114/67 (83) 93 09/28/17 16:41 98.2 70 20 142/68 (92) 97 09/28/17 12:13 98.2 70 18 142/60 (87) 97 I/O 09/28/17 09/28/17 09/28/17 09/29/17 09/29/17 09/29/17 07:00 15:00 23:00 07:00 15:00 23:00 Intake Total 1000 ml 240 ml 480 ml 720 ml Output Total 275 ml 950 ml Balance 725 ml 240 ml 480 ml -230 ml Intake Oral 1000 ml 480 ml 720 ml Other 240 ml Output Urine Total 275 ml 950 ml # Voids 2 Physical Exam GENERAL: Well-developed well-nourished. Obese. In no acute distress. NECK: No carotid bruits. No JVD. CARDIOVASCULAR: Regular rate and rhythm. No murmur appreciated. RESPIRATORY: No accessory muscle use. Clear to auscultation. Breath sounds equal bilaterally. MUSCULOSKELETAL: No clubbing or cyanosis. Tense edema in lower extremities has improved. NEUROLOGICAL: Awake and alert. Normal speech. Laboratory Laboratory Tests Test 09/29/17 06:17 White Blood Count 7.7 TH/MM3 Red Blood Count 5.29 MIL/MM3 Hemoglobin 16.1 GM/DL Hematocrit 49.0 % Mean Corpuscular Volume 92.5 FL Mean Corpuscular Hemoglobin 30.4 PG Mean Corpuscular Hemoglobin Concent 32.9 % Red Cell Distribution Width 16.1 % Platelet Count 115 TH/MM3 Mean Platelet Volume 10.1 FL Blood Urea Nitrogen 23 MG/DL Creatinine 0.83 MG/DL Random Glucose 84 MG/DL Calcium Level 9.1 MG/DL Phosphorus Level 4.3 MG/DL Magnesium Level 2.0 MG/DL Sodium Level 140 MEQ/L Potassium Level 3.8 MEQ/L Chloride Level 100 MEQ/L Carbon Dioxide Level 32.2 MEQ/L Anion Gap 8 MEQ/L Estimat Glomerular Filtration Rate 95 ML/MIN Imaging Last Impressions Chest X-Ray 09/24/171922 Signed Impressions: Service Date/Time: Sunday, September 24, 2017 19:51 - CONCLUSION: 1. Cardiomegaly with questionable early interstitial edema. Karri Bangura MD (Aric Alvarez) Assessment and Plan Assessment and Plan 62-year-old male with a past medical history of NICM who presented for CHF exacerbation Acute exacerbation of chronic systolic CHF: Continue Lasix twice daily. Much better diuresis after addition of metolazone, continue 3 days. Monitor I's and O's. Non ischemic cardiomyopathy: EF remains 20% on repeat echo, discussed risks/ benefits of +/- AICD and patient continues to decline any invasive cardiac procedure. Continue lisinopril. NSVT: Patient refuses AICD. Unable to titrate beta prema with bradycardia. Consider outpatient Holter monitor. (Aric Alvarez) Assessment and Plan continue diuretic follow K+ and Cr refusing AICD. will sign off at this point when clinically stable, DC planning on diuretic therapy with outpatient FU PCP call with questions (Osmar Simpson MD) Aric Alvarez Sep 29, 2017 09:46 Osmar Simpson MD Sep 29, 2017 11:44
[2017-09-29] MEDS ORDERED: Budeson-Formot 160-4.5 Mcg Inh INH (12:18)
[2017-09-29] MEDS ORDERED: SPIRCAP INH (12:18)
[2017-09-29] MEDS ORDERED: POTA-163 PO (12:18)
[2017-09-29] MEDS ORDERED: LISI10TA3 PO (12:18)
[2017-09-29] MEDS ORDERED: METO2.5T PO (12:18)
[2017-09-29] MEDS ORDERED: FURO1TAB60 PO (12:18)
--- NOTE | 2017-09-29 12:19 | HHI.DCPOC ---
Discharge Care Plan Diagnosis: (1) Cardiomyopathy (2) Noncompliance (3) Morbid obesity (4) HTN (hypertension) (5) new onse CHF (6) Acute CHF (congestive heart failure) (7) Smoking addiction (8) Bradycardia (9) HTN (hypertension) (10) COPD exacerbation Goals to Promote Your Health * To prevent worsening of your condition and complications * To maintain your health at the optimal level Directions to Meet Your Goals Take your medications as prescribed Follow your dietary instruction Follow activity as directed Keep your appointments as scheduled Take your immunizations and boosters as scheduled If your symptoms worsen call your PCP, if no PCP go to Urgent Care Center or Emergency Room Smoking is Dangerous to Your Health. Avoid second hand smoke Call the 24-hour hour crisis hotline for domestic abuse at Bossman Troy MD Sep 29, 2017 12:19
[2017-09-29 12:35] VITALS: BP 130/80; PULSE 54; RESP 20; TEMP 97.9; O2SAT 98
--- NOTE | 2017-09-29 12:38 | HHI.DS ---
Discharge Summary Admission Date Sep 24, 2017 at 22:06 Discharge Date: Sep 29, 2017 Admitting Diagnosis Acute CHf Exacerbation, Hypoxia. Brief History - From Admission 62-year-old male with a past medical history significant for CHF (last echo done on 05/01/17 showed an EF of 20%) and hypertension presents to the emergency department for evaluation of bilateral lower extremity edema and shortness of breath. The patient reports that his legs have been swelling for anywhere between 3 days to the past week. He endorses shortness of breath that is worse when he lies flat and makes it almost impossible for him to walk. He complains of fatigue worse than normal. He denies any chest pain. No nausea/vomiting. No abdominal pain. No lateralizing signs/symptoms. The patient does not have a primary care physician and does not know the name of his body coverer. CBC/BMP: 09/29/17 0617 09/29/17 0617 Significant Findings Laboratory Tests Test 09/29/17 06:17 Platelet Count 115 TH/MM3 (150-450) Blood Urea Nitrogen 23 MG/DL (7-18) Carbon Dioxide Level 32.2 MEQ/L (21.0-32.0) Imaging Last Impressions Chest X-Ray 09/24/171922 Signed Impressions: Service Date/Time: Sunday, September 24, 2017 19:51 - CONCLUSION: 1. Cardiomegaly with questionable early interstitial edema. Karri Bangura MD PE at Discharge GENERAL: Well-nourished, well-developed pleasant male patient in [facility]. Awake and alert. SKIN: Warm and dry. No rash. HEENT: Normocephalic. Atraumatic. Pupils equal and round. Mucous membranes pink and moist. NECK: Trachea midline. CARDIOVASCULAR: Regular rate and rhythm. No murmur appreciated. RESPIRATORY: Nonlabored. Clear to auscultation but decreased at the bases. No wheezing GASTROINTESTINAL: Abdomen soft, non-tender, nondistended. Normoactive bowel sounds x4. MUSCULOSKELETAL: No obvious deformities. 2-3+ bilateral lower extremity edema. Trace edema bilateral thighs. Bilateral calves nontender to palpation. NEUROLOGICAL: Awake and alert. No obvious cranial nerve deficits. Motor grossly within normal limits. Normal speech. PSYCHIATRIC: Appropriate mood and affect; insight and judgment normal. Pt Condition on Discharge: Stable Discharge Disposition: Discharge Home Discharge Time: > 30 minutes Discharge Instructions DIET: Follow Instructions for: Heart Healthy Diet Activities you can perform: Regular-No Restrictions Activities to Avoid: Prolonged Standing, Strenuous Activity Follow up Referrals: PCP Follow-up - 1 Week with Jacquelindionna Vides New Medications: Metolazone (Metolazone) 2.5 Mg Tab 2.5 MG PO BID for edema, #30 TAB 0 Refills Potassium Chloride ER (Potassium Chloride ER) 20 Meq Tab 20 MEQ PO BID for Electrolyte Replacement, #60 TAB 0 Refills Lisinopril (Lisinopril) 10 Mg Tab 20 MG PO DAILY for chf, #31 TAB [Budeson-Formot 160-4.5 Mcg Inh] () 60 PUFF AERO 2 PUFF INH Q12HR for Shortness of Breath, #1 INHALER Continued Medications: Aspirin (Tgt Aspirin) 81 Mg Chw 162 MG CHEW DAILY for CMP for 90 Days, #90 EA 1 Refill Furosemide (Lasix) 40 Mg Tab 40 MG PO BID for CMP for 30 Days, #60 TAB 0 Refills (This prescription has been renewed) Tiotropium Inh (Spiriva Handihaler) 18 Mcg Cap 18 MCG INH DAILY for RLD for 30 Days, #30 CAP (This prescription has been renewed) 1 capsule = 18 mcg [Albuterol Hfa Inh] () 60 PUFF/8 GM AERO 2 PUFF INH Q6HR for COPD Discontinued Medications: Carvedilol (Carvedilol) 25 Mg Tab 25 MG BID, #60 TAB 0 Refills Potassium Chloride ER (Klor-Con 10) 10 Meq Tab 10 MEQ PO DAILY for Electrolyte Replacement, #30 TAB 0 Refills Bossman Troy MD Sep 29, 2017 12:38
== END 2017-09-29 17:25 | disposition home or self-care (01) ==
LOC: NEPE 19:15 → NEDA 22:06 → NEDH 09-25 03:01 → NEPHCDU 09-25 09:52
PROVIDERS: ADMIT Hospitalist; ATTEND Hospitalist
DX: I50.23 Acute on chronic systolic (congestive) heart failure (principal); I42.9 Cardiomyopathy, unspecified; I11.0 Hypertensive heart disease with heart failure; F17.210 Nicotine dependence, cigarettes, uncomplicated; J44.1 Chronic obstructive pulmonary disease with (acute) exacerbation; E66.01 Morbid (severe) obesity due to excess calories; Z68.37 Body mass index [BMI] 37.0-37.9, adult; Z91.19 Patient's noncompliance with other medical treatment and regimen; R09.02 Hypoxemia; R60.0 Localized edema; I47.1 Supraventricular tachycardia; R00.1 Bradycardia, unspecified
CPT/HCPCS: 36600; 71046; 80048; 80053; 82550; 82805; 83690; 83735; 83880; 84100; 84484; 85025; 85027; 85610; 85730; 93005; 93306; 94002; 94618; 94640; 94664; 96372; 96374; 96376; 99285; G0378; J1644; J1940; J7512

== ENCOUNTER 2018-01-29 20:25 | Inpatient (IN) ==
--- NOTE | 2018-01-29 21:26 | ED ---
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 Is here because he is shortness of breath has been progressively worsening over the past 4 days. And he states that his water pill is not working because he can see that his lower extremities have been increasing in swelling. MD Complaint: shortness of breath Onset (ago): day(s) (4) Context: smoke/fume exposure Severity: moderate Consistency/Duration: progressively worsening Relieving factors: nothing Exacerbating factors: nothing Known history of: congestive heart failure (Patient states he does not have a primary care doctor yet he states that he has a history of CHF not COPD and that he is on the water pill but is not Lasix and Demadex or Bumex.) Associated symptoms: orthopnea Treatment prior to arrival: none Related Data Previous Rx's Medication Instructions Recorded aspirin 81 mg PO DAILY #30 tab 02/05/18 carvedilol [Coreg] 3.125 mg PO BID #60 tab 02/05/18 famotidine [Pepcid] 20 mg PO DAILY #30 tab 02/05/18 furosemide 40 mg PO DAILY #30 tab 02/05/18 lisinopril 10 mg PO DAILY #30 tab 02/05/18 metolazone 5 mg PO DAILY #30 tab 02/05/18 nicotine 1 patch TRANSDERMAL DAILY #30 ea 02/05/18 potassium chloride 20 meq PO BID #60 tab 02/05/18 pravastatin 40 mg PO HS #30 tab 02/05/18 sennosides-docusate sodium [Senna 2 tab PO BID PRN #120 tab 02/05/18 Plus] Allergies Allergy/AdvReac Type Severity Reaction Status Date / Time No Known Allergies Allergy Unverified 01/29/18 21:19 Review of Systems ROS: all other systems reviewed are negative PMFSH History History Provided By: Patient Medical History Medical History CHF (congestive heart failure) (Acute) HTN (hypertension) (Acute) Family History Family History Other Leukemia Social History Social History Substance History: No History of Abuse Second Hand Smoke Exposure: Yes Smoking Status: Current every day smoker Tobacco Type: Cigarettes How Often Do You Have a Drink Containing Alcohol: Never Recent Travel in [facility] within the Last 8 Weeks: No Recent Out of Country Travel within the Last 8 Weeks: No Immunization History Tetanus Immunization: Unsure Hx Influenza Vaccine This Season: No Exam Narrative Exam Narrative: GENERAL: Well-nourished, well-developed patient in no apparent distress. SKIN: Warm and dry. HEAD: Atraumatic. Normocephalic. EYES: Pupils equal and round. No scleral icterus. No injection or drainage. ENT: No nasal bleeding or discharge. Mucous membranes pink and moist. NECK: Trachea midline. No JVD. CARDIOVASCULAR: Regular rate and rhythm. no rubs or gallops RESPIRATORY: No accessory muscle use. Bilateral wheezing, decreased tidal volume bilaterally. GASTROINTESTINAL: Abdomen soft, non-tender, nondistended. No rebound or guarding MUSCULOSKELETAL: Extremities without clubbing, cyanosis, or edema. No obvious deformities. NEUROLOGICAL: Awake and alert. No obvious cranial nerve deficits. Motor grossly within normal limits. Five out of 5 muscle strength in the arms and legs. Normal speech. PSYCHIATRIC: Appropriate mood and affect; insight and judgment normal. Course Initial Documented Vital Signs Temperature 98.5 F 01/29/18 21:06 Pulse Rate 48 L 01/29/18 21:06 Respiratory Rate 18 01/29/18 21:06 Blood Pressure 156/88 H 01/29/18 21:06 Pulse Oximetry 93 L 01/29/18 21:06 Last Documented Vital Signs Temperature 98.9 F 02/05/18 12:00 Pulse Rate 73 02/05/18 12:15 Respiratory Rate 18 02/05/18 12:00 Blood Pressure 105/63 02/05/18 12:00 Pulse Oximetry 94 L 02/05/18 12:00 Critical Care Time Critical Care Time: Yes Total Critical Care Time: 30 Attestation: Aggregate critical care time was 30 minutes. Time to perform other separately billable procedures was not included in the critical care time. My time did not include minutes spent treating any other patients simultaneously or on activities that did not directly contribute to the patient's treatment. The services I provided to this patient were to treat and/or prevent clinically significant deterioration I provided critical care services requiring my management, as noted below: Chart data review, documentation time, medication orders and management, vital sign assessments/reviewing monitor data, ordering and reviewing lab tests, ordering and interpreting/reviewing x-rays and diagnostic studies, care of the patient and discussion of the patient with the admitting physicians. Medical Decision Making MDM Narrative Medical decision making narrative: No leukocytosis, no anemia, but relative thrombocytopenia noted at 137,000 Electrodes are within normal limits, normal kidney functions, first set of cardiac enzymes negative Elevated beta natruretic peptide 1594 consistent with CHF Differential Diagnosis Differential Diagnosis: COPD versus CHF versus pneumonia versus pulmonary embolus versus STEMI Lab Data Result diagrams: 02/05/18 07:29 02/05/18 07:29 Lab Results 01/29/18 01/29/18 01/29/18 Range/Units 21:45 21:45 21:45 WBC 9.2 (4.0-11.0) th/mm3 RBC 5.25 (4.50-5.90) mil/mm3 Hgb 16.4 (13.0-17.0) gm/dL Hct 50.3 (39.0-51.0) % MCV 95.8 (80.0-100.0) fL MCH 31.2 (27.0-34.0) pg MCHC 32.6 (32.0-36.0) % RDW 14.9 (11.6-17.2) % Plt Count 137 L (150-450) th/mm3 MPV 9.6 (7.0-11.0) fL Neut % (Auto) 76.4 H (16.0-70.0) % Lymph % (Auto) 11.6 (9.0-44.0) % [place] % (Auto) 9.7 H (0.0-8.0) % Eos % (Auto) 1.6 (0.0-4.0) % Baso % (Auto) 0.7 (0.0-2.0) % Neut # (Auto) 7.0 (1.8-7.7) th/mm3 Lymph # (Auto) 1.1 (1.0-4.8) th/mm3 [place] # (Auto) 0.9 (0.0-0.9) th/mm3 Eos # (Auto) 0.1 (0.0-0.4) th/mm3 Baso # (Auto) 0.1 (0.0-0.2) th/mm3 WBC Differential . Differential Comment Auto diff final PT 11.6 (9.8-11.6) sec INR 1.1 Ratio APTT 25.3 (24.3-30.1) sec Puncture Site Patient Temperature O2 Saturation (90-100) % ABG pH (7.380-7.420) ABG pCO2 (38-42) mmHg ABG pO2 (61-120) mmHg ABG HCO3 (22-26) mmol/L ABG O2 Content (12.0-20.0) Vol % ABG Base Excess (-2-2) mmol/L ABG Methemoglobin (0-2) % Will Test Hemoglobin (12.0-16.0) G/DL Carboxyhemoglobin (0-4) % O2 Delivery Device Inspired O2 % Critical Value Sodium 139 (136-145) meq/L Potassium 4.3 (3.5-5.1) meq/L Chloride 102 (98-107) meq/L Carbon Dioxide 28.6 (21.0-32.0) meq/L Anion Gap 8 (5-15) meq/L BUN 19 H (7-18) mg/dL Creatinine 0.84 (0.60-1.30) mg/dL Estimated GFR Greater than 89 (>89) mL/min Random Glucose 95 (74-106) mg/dL Hemoglobin A1c (4.3-6.0) % Calcium 8.7 (8.5-10.1) mg/dL Phosphorus (2.5-4.9) mg/dL Magnesium (1.5-2.5) mg/dL Iron (65-175) mcg/dL TIBC (250-450) mcg/dL % Saturation (20-50) % Erythropoietin (2.6-18.5) mIU/mL Ferritin (26-388) ng/mL Total Bilirubin 0.7 (0.2-1.0) mg/dL AST 25 (15-37) U/L ALT 20 (12-78) U/L Alkaline Phosphatase 92 (45-117) U/L Lactate Dehydrogenase (87-241) U/L Total Creatine Kinase (39-308) U/L Troponin I 0.03 (0.02-0.05) ng/mL B-Natriuretic Peptide (0-100) pg/mL Total Protein 6.8 (6.4-8.2) g/dL Albumin 3.3 L (3.4-5.0) g/dL Triglycerides (42-150) mg/dL Cholesterol (120-200) mg/dL LDL Cholesterol, Calc (0-99) mg/dL HDL Cholesterol (40.0-60.0) mg/dL Cholesterol/HDL Ratio Ratio Vitamin B12 (193-986) pg/mL TSH (0.358-3.740) uIU/mL Free T4 (0.76-1.46) ng/dL JAK2 Mutation (PCR) 01/29/18 01/29/18 01/30/18 Range/Units 21:45 21:45 20:19 WBC (4.0-11.0) th/mm3 RBC (4.50-5.90) mil/mm3 Hgb (13.0-17.0) gm/dL Hct (39.0-51.0) % MCV (80.0-100.0) fL MCH (27.0-34.0) pg MCHC (32.0-36.0) % RDW (11.6-17.2) % Plt Count (150-450) th/mm3 MPV (7.0-11.0) fL Neut % (Auto) (16.0-70.0) % Lymph % (Auto) (9.0-44.0) % [place] % (Auto) (0.0-8.0) % Eos % (Auto) (0.0-4.0) % Baso % (Auto) (0.0-2.0) % Neut # (Auto) (1.8-7.7) th/mm3 Lymph # (Auto) (1.0-4.8) th/mm3 [place] # (Auto) (0.0-0.9) th/mm3 Eos # (Auto) (0.0-0.4) th/mm3 Baso # (Auto) (0.0-0.2) th/mm3 WBC Differential Differential Comment PT (9.8-11.6) sec INR Ratio APTT (24.3-30.1) sec Puncture Site Patient Temperature O2 Saturation (90-100) % ABG pH (7.380-7.420) ABG pCO2 (38-42) mmHg ABG pO2 (61-120) mmHg ABG HCO3 (22-26) mmol/L ABG O2 Content (12.0-20.0) Vol % ABG Base Excess (-2-2) mmol/L ABG Methemoglobin (0-2) % Will Test Hemoglobin (12.0-16.0) G/DL Carboxyhemoglobin (0-4) % O2 Delivery Device Inspired O2 % Critical Value Sodium (136-145) meq/L Potassium (3.5-5.1) meq/L Chloride (98-107) meq/L Carbon Dioxide (21.0-32.0) meq/L Anion Gap (5-15) meq/L BUN (7-18) mg/dL Creatinine (0.60-1.30) mg/dL Estimated GFR (>89) mL/min Random Glucose (74-106) mg/dL Hemoglobin A1c (4.3-6.0) % Calcium (8.5-10.1) mg/dL Phosphorus (2.5-4.9) mg/dL Magnesium (1.5-2.5) mg/dL Iron (65-175) mcg/dL TIBC (250-450) mcg/dL % Saturation (20-50) % Erythropoietin (2.6-18.5) mIU/mL Ferritin (26-388) ng/mL Total Bilirubin (0.2-1.0) mg/dL AST (15-37) U/L ALT (12-78) U/L Alkaline Phosphatase (45-117) U/L Lactate Dehydrogenase (87-241) U/L Total Creatine Kinase 52 (39-308) U/L Troponin I Less than 0.02 L (0.02-0.05) ng/mL B-Natriuretic Peptide 1594 H (0-100) pg/mL Total Protein (6.4-8.2) g/dL Albumin (3.4-5.0) g/dL Triglycerides (42-150) mg/dL Cholesterol (120-200) mg/dL LDL Cholesterol, Calc (0-99) mg/dL HDL Cholesterol (40.0-60.0) mg/dL Cholesterol/HDL Ratio Ratio Vitamin B12 (193-986) pg/mL TSH (0.358-3.740) uIU/mL Free T4 (0.76-1.46) ng/dL JAK2 Mutation (PCR) 01/31/18 01/31/18 01/31/18 Range/Units 09:01 09:07 09:07 WBC 13.7 H (4.0-11.0) th/mm3 RBC 5.41 (4.50-5.90) mil/mm3 Hgb 16.6 (13.0-17.0) gm/dL Hct 52.3 H (39.0-51.0) % MCV 96.6 (80.0-100.0) fL MCH 30.8 (27.0-34.0) pg MCHC 31.8 L (32.0-36.0) % RDW 15.1 (11.6-17.2) % Plt Count 146 L (150-450) th/mm3 MPV 9.2 (7.0-11.0) fL Neut % (Auto) 84.3 H (16.0-70.0) % Lymph % (Auto) 7.2 L (9.0-44.0) % [place] % (Auto) 7.9 (0.0-8.0) % Eos % (Auto) 0.2 (0.0-4.0) % Baso % (Auto) 0.4 (0.0-2.0) % Neut # (Auto) 11.5 H (1.8-7.7) th/mm3 Lymph # (Auto) 1.0 (1.0-4.8) th/mm3 [place] # (Auto) 1.1 H (0.0-0.9) th/mm3 Eos # (Auto) 0.0 (0.0-0.4) th/mm3 Baso # (Auto) 0.1 (0.0-0.2) th/mm3 WBC Differential . Differential Comment Auto diff final PT (9.8-11.6) sec INR Ratio APTT (24.3-30.1) sec Puncture Site Patient Temperature O2 Saturation (90-100) % ABG pH (7.380-7.420) ABG pCO2 (38-42) mmHg ABG pO2 (61-120) mmHg ABG HCO3 (22-26) mmol/L ABG O2 Content (12.0-20.0) Vol % ABG Base Excess (-2-2) mmol/L ABG Methemoglobin (0-2) % Will Test Hemoglobin (12.0-16.0) G/DL Carboxyhemoglobin (0-4) % O2 Delivery Device Inspired O2 % Critical Value Sodium 139 (136-145) meq/L Potassium 4.5 (3.5-5.1) meq/L Chloride 102 (98-107) meq/L Carbon Dioxide 31.5 (21.0-32.0) meq/L Anion Gap 6 (5-15) meq/L BUN 26 H (7-18) mg/dL Creatinine 0.76 (0.60-1.30) mg/dL Estimated GFR Greater than 89 (>89) mL/min Random Glucose 100 (74-106) mg/dL Hemoglobin A1c (4.3-6.0) % Calcium 9.1 (8.5-10.1) mg/dL Phosphorus (2.5-4.9) mg/dL Magnesium (1.5-2.5) mg/dL Iron (65-175) mcg/dL TIBC (250-450) mcg/dL % Saturation (20-50) % Erythropoietin (2.6-18.5) mIU/mL Ferritin (26-388) ng/mL Total Bilirubin 1.2 H (0.2-1.0) mg/dL AST 21 (15-37) U/L ALT 18 (12-78) U/L Alkaline Phosphatase 79 (45-117) U/L Lactate Dehydrogenase (87-241) U/L Total Creatine Kinase (39-308) U/L Troponin I Less than 0.02 L (0.02-0.05) ng/mL B-Natriuretic Peptide 1199 H (0-100) pg/mL Total Protein 7.0 (6.4-8.2) g/dL Albumin 3.2 L (3.4-5.0) g/dL Triglycerides (42-150) mg/dL Cholesterol (120-200) mg/dL LDL Cholesterol, Calc (0-99) mg/dL HDL Cholesterol (40.0-60.0) mg/dL Cholesterol/HDL Ratio Ratio Vitamin B12 (193-986) pg/mL TSH (0.358-3.740) uIU/mL Free T4 (0.76-1.46) ng/dL JAK2 Mutation (PCR) 02/01/18 02/01/18 02/01/18 Range/Units 08:59 08:59 08:59 WBC 12.2 H (4.0-11.0) th/mm3 RBC 5.46 (4.50-5.90) mil/mm3 Hgb 17.2 H (13.0-17.0) gm/dL Hct 52.0 H (39.0-51.0) % MCV 95.3 (80.0-100.0) fL MCH 31.5 (27.0-34.0) pg MCHC 33.1 (32.0-36.0) % RDW 14.8 (11.6-17.2) % Plt Count 153 (150-450) th/mm3 MPV 9.3 (7.0-11.0) fL Neut % (Auto) 78.5 H (16.0-70.0) % Lymph % (Auto) 10.7 (9.0-44.0) % [place] % (Auto) 9.3 H (0.0-8.0) % Eos % (Auto) 1.0 (0.0-4.0) % Baso % (Auto) 0.5 (0.0-2.0) % Neut # (Auto) 9.6 H (1.8-7.7) th/mm3 Lymph # (Auto) 1.3 (1.0-4.8) th/mm3 [place] # (Auto) 1.1 H (0.0-0.9) th/mm3 Eos # (Auto) 0.1 (0.0-0.4) th/mm3 Baso # (Auto) 0.1 (0.0-0.2) th/mm3 WBC Differential . Differential Comment Auto diff final PT 11.5 (9.8-11.6) sec INR 1.1 Ratio APTT (24.3-30.1) sec Puncture Site Patient Temperature O2 Saturation (90-100) % ABG pH (7.380-7.420) ABG pCO2 (38-42) mmHg ABG pO2 (61-120) mmHg ABG HCO3 (22-26) mmol/L ABG O2 Content (12.0-20.0) Vol % ABG Base Excess (-2-2) mmol/L ABG Methemoglobin (0-2) % Will Test Hemoglobin (12.0-16.0) G/DL Carboxyhemoglobin (0-4) % O2 Delivery Device Inspired O2 % Critical Value Sodium (136-145) meq/L Potassium (3.5-5.1) meq/L Chloride (98-107) meq/L Carbon Dioxide (21.0-32.0) meq/L Anion Gap (5-15) meq/L BUN (7-18) mg/dL Creatinine (0.60-1.30) mg/dL Estimated GFR (>89) mL/min Random Glucose (74-106) mg/dL Hemoglobin A1c 5.3 (4.3-6.0) % Calcium (8.5-10.1) mg/dL Phosphorus (2.5-4.9) mg/dL Magnesium (1.5-2.5) mg/dL Iron (65-175) mcg/dL TIBC (250-450) mcg/dL % Saturation (20-50) % Erythropoietin (2.6-18.5) mIU/mL Ferritin (26-388) ng/mL Total Bilirubin (0.2-1.0) mg/dL AST (15-37) U/L ALT (12-78) U/L Alkaline Phosphatase (45-117) U/L Lactate Dehydrogenase (87-241) U/L Total Creatine Kinase (39-308) U/L Troponin I (0.02-0.05) ng/mL B-Natriuretic Peptide (0-100) pg/mL Total Protein (6.4-8.2) g/dL Albumin (3.4-5.0) g/dL Triglycerides (42-150) mg/dL Cholesterol (120-200) mg/dL LDL Cholesterol, Calc (0-99) mg/dL HDL Cholesterol (40.0-60.0) mg/dL Cholesterol/HDL Ratio Ratio Vitamin B12 (193-986) pg/mL TSH (0.358-3.740) uIU/mL Free T4 (0.76-1.46) ng/dL JAK2 Mutation (PCR) 02/01/18 02/01/18 02/02/18 Range/Units 08:59 08:59 14:15 WBC 7.7 (4.0-11.0) th/mm3 RBC 5.82 (4.50-5.90) mil/mm3 Hgb 18.3 H (13.0-17.0) gm/dL Hct 54.7 H (39.0-51.0) % MCV 94.1 (80.0-100.0) fL MCH 31.5 (27.0-34.0) pg MCHC 33.4 (32.0-36.0) % RDW 14.8 (11.6-17.2) % Plt Count 160 (150-450) th/mm3 MPV 9.5 (7.0-11.0) fL Neut % (Auto) 73.9 H (16.0-70.0) % Lymph % (Auto) 16.2 (9.0-44.0) % [place] % (Auto) 7.7 (0.0-8.0) % Eos % (Auto) 1.7 (0.0-4.0) % Baso % (Auto) 0.5 (0.0-2.0) % Neut # (Auto) 5.7 (1.8-7.7) th/mm3 Lymph # (Auto) 1.2 (1.0-4.8) th/mm3 [place] # (Auto) 0.6 (0.0-0.9) th/mm3 Eos # (Auto) 0.1 (0.0-0.4) th/mm3 Baso # (Auto) 0.0 (0.0-0.2) th/mm3 WBC Differential . Differential Comment Auto diff final PT (9.8-11.6) sec INR Ratio APTT (24.3-30.1) sec Puncture Site Patient Temperature O2 Saturation (90-100) % ABG pH (7.380-7.420) ABG pCO2 (38-42) mmHg ABG pO2 (61-120) mmHg ABG HCO3 (22-26) mmol/L ABG O2 Content (12.0-20.0) Vol % ABG Base Excess (-2-2) mmol/L ABG Methemoglobin (0-2) % Will Test Hemoglobin (12.0-16.0) G/DL Carboxyhemoglobin (0-4) % O2 Delivery Device Inspired O2 % Critical Value Sodium 140 (136-145) meq/L Potassium 4.0 (3.5-5.1) meq/L Chloride 100 (98-107) meq/L Carbon Dioxide 33.3 H (21.0-32.0) meq/L Anion Gap 7 (5-15) meq/L BUN 31 H (7-18) mg/dL Creatinine 0.90 (0.60-1.30) mg/dL Estimated GFR 86 L (>89) mL/min Random Glucose 82 (74-106) mg/dL Hemoglobin A1c (4.3-6.0) % Calcium 8.8 (8.5-10.1) mg/dL Phosphorus 4.2 (2.5-4.9) mg/dL Magnesium 2.0 (1.5-2.5) mg/dL Iron (65-175) mcg/dL TIBC (250-450) mcg/dL % Saturation (20-50) % Erythropoietin (2.6-18.5) mIU/mL Ferritin (26-388) ng/mL Total Bilirubin 0.9 (0.2-1.0) mg/dL AST 17 (15-37) U/L ALT 20 (12-78) U/L Alkaline Phosphatase 93 (45-117) U/L Lactate Dehydrogenase (87-241) U/L Total Creatine Kinase (39-308) U/L Troponin I (0.02-0.05) ng/mL B-Natriuretic Peptide 1324 H (0-100) pg/mL Total Protein 7.2 (6.4-8.2) g/dL Albumin 3.4 (3.4-5.0) g/dL Triglycerides 178 H (42-150) mg/dL Cholesterol 160 (120-200) mg/dL LDL Cholesterol, Calc 86 (0-99) mg/dL HDL Cholesterol 38.3 L (40.0-60.0) mg/dL Cholesterol/HDL Ratio 4.17 Ratio Vitamin B12 (193-986) pg/mL TSH 1.060 (0.358-3.740) uIU/mL Free T4 1.11 (0.76-1.46) ng/dL JAK2 Mutation (PCR) 02/02/18 02/02/18 02/03/18 Range/Units 14:15 14:15 10:40 WBC (4.0-11.0) th/mm3 RBC (4.50-5.90) mil/mm3 Hgb (13.0-17.0) gm/dL Hct (39.0-51.0) % MCV (80.0-100.0) fL MCH (27.0-34.0) pg MCHC (32.0-36.0) % RDW (11.6-17.2) % Plt Count (150-450) th/mm3 MPV (7.0-11.0) fL Neut % (Auto) (16.0-70.0) % Lymph % (Auto) (9.0-44.0) % [place] % (Auto) (0.0-8.0) % Eos % (Auto) (0.0-4.0) % Baso % (Auto) (0.0-2.0) % Neut # (Auto) (1.8-7.7) th/mm3 Lymph # (Auto) (1.0-4.8) th/mm3 [place] # (Auto) (0.0-0.9) th/mm3 Eos # (Auto) (0.0-0.4) th/mm3 Baso # (Auto) (0.0-0.2) th/mm3 WBC Differential Differential Comment PT (9.8-11.6) sec INR Ratio APTT (24.3-30.1) sec Puncture Site Patient Temperature O2 Saturation (90-100) % ABG pH (7.380-7.420) ABG pCO2 (38-42) mmHg ABG pO2 (61-120) mmHg ABG HCO3 (22-26) mmol/L ABG O2 Content (12.0-20.0) Vol % ABG Base Excess (-2-2) mmol/L ABG Methemoglobin (0-2) % Will Test Hemoglobin (12.0-16.0) G/DL Carboxyhemoglobin (0-4) % O2 Delivery Device Inspired O2 % Critical Value Sodium 138 135 L (136-145) meq/L Potassium 3.3 L 3.8 (3.5-5.1) meq/L Chloride 93 L 93 L (98-107) meq/L Carbon Dioxide 36.4 H 32.6 H (21.0-32.0) meq/L Anion Gap 9 9 (5-15) meq/L BUN 27 H 30 H (7-18) mg/dL Creatinine 0.97 0.89 (0.60-1.30) mg/dL Estimated GFR 79 L 87 L (>89) mL/min Random Glucose 138 H 104 (74-106) mg/dL Hemoglobin A1c (4.3-6.0) % Calcium 9.5 10.0 (8.5-10.1) mg/dL Phosphorus 4.1 4.7 (2.5-4.9) mg/dL Magnesium 1.8 1.8 (1.5-2.5) mg/dL Iron (65-175) mcg/dL TIBC (250-450) mcg/dL % Saturation (20-50) % Erythropoietin (2.6-18.5) mIU/mL Ferritin (26-388) ng/mL Total Bilirubin 1.4 H 1.4 H (0.2-1.0) mg/dL AST 21 21 (15-37) U/L ALT 21 23 (12-78) U/L Alkaline Phosphatase 104 107 (45-117) U/L Lactate Dehydrogenase (87-241) U/L Total Creatine Kinase (39-308) U/L Troponin I (0.02-0.05) ng/mL B-Natriuretic Peptide 645 H (0-100) pg/mL Total Protein 7.2 7.7 (6.4-8.2) g/dL Albumin 3.4 3.6 (3.4-5.0) g/dL Triglycerides (42-150) mg/dL Cholesterol (120-200) mg/dL LDL Cholesterol, Calc (0-99) mg/dL HDL Cholesterol (40.0-60.0) mg/dL Cholesterol/HDL Ratio Ratio Vitamin B12 (193-986) pg/mL TSH (0.358-3.740) uIU/mL Free T4 (0.76-1.46) ng/dL JAK2 Mutation (PCR) 02/03/18 02/03/18 02/03/18 Range/Units 10:40 10:40 20:20 WBC 8.6 (4.0-11.0) th/mm3 RBC 6.10 H (4.50-5.90) mil/mm3 Hgb 19.3 H (13.0-17.0) gm/dL Hct 56.6 H (39.0-51.0) % MCV 92.8 (80.0-100.0) fL MCH 31.7 (27.0-34.0) pg MCHC 34.1 (32.0-36.0) % RDW 14.6 (11.6-17.2) % Plt Count 166 (150-450) th/mm3 MPV 8.7 (7.0-11.0) fL Neut % (Auto) 73.8 H (16.0-70.0) % Lymph % (Auto) 14.2 (9.0-44.0) % [place] % (Auto) 9.5 H (0.0-8.0) % Eos % (Auto) 1.9 (0.0-4.0) % Baso % (Auto) 0.6 (0.0-2.0) % Neut # (Auto) 6.4 (1.8-7.7) th/mm3 Lymph # (Auto) 1.2 (1.0-4.8) th/mm3 [place] # (Auto) 0.8 (0.0-0.9) th/mm3 Eos # (Auto) 0.2 (0.0-0.4) th/mm3 Baso # (Auto) 0.0 (0.0-0.2) th/mm3 WBC Differential . Differential Comment Auto diff final PT (9.8-11.6) sec INR Ratio APTT (24.3-30.1) sec Puncture Site Left radial Patient Temperature 98.6 O2 Saturation 92 (90-100) % ABG pH 7.48 H (7.380-7.420) ABG pCO2 50 H (38-42) mmHg ABG pO2 65 (61-120) mmHg ABG HCO3 37 H (22-26) mmol/L ABG O2 Content 24.1 H (12.0-20.0) Vol % ABG Base Excess 12.8 H (-2-2) mmol/L ABG Methemoglobin 0.5 (0-2) % Will Test Present Hemoglobin 18.8 H (12.0-16.0) G/DL Carboxyhemoglobin 1.9 (0-4) % O2 Delivery Device Room air Inspired O2 21 % Critical Value No Sodium (136-145) meq/L Potassium (3.5-5.1) meq/L Chloride (98-107) meq/L Carbon Dioxide (21.0-32.0) meq/L Anion Gap (5-15) meq/L BUN (7-18) mg/dL Creatinine (0.60-1.30) mg/dL Estimated GFR (>89) mL/min Random Glucose (74-106) mg/dL Hemoglobin A1c (4.3-6.0) % Calcium (8.5-10.1) mg/dL Phosphorus (2.5-4.9) mg/dL Magnesium (1.5-2.5) mg/dL Iron (65-175) mcg/dL TIBC (250-450) mcg/dL % Saturation (20-50) % Erythropoietin (2.6-18.5) mIU/mL Ferritin (26-388) ng/mL Total Bilirubin (0.2-1.0) mg/dL AST (15-37) U/L ALT (12-78) U/L Alkaline Phosphatase (45-117) U/L Lactate Dehydrogenase (87-241) U/L Total Creatine Kinase (39-308) U/L Troponin I (0.02-0.05) ng/mL B-Natriuretic Peptide 312 H (0-100) pg/mL Total Protein (6.4-8.2) g/dL Albumin (3.4-5.0) g/dL Triglycerides (42-150) mg/dL Cholesterol (120-200) mg/dL LDL Cholesterol, Calc (0-99) mg/dL HDL Cholesterol (40.0-60.0) mg/dL Cholesterol/HDL Ratio Ratio Vitamin B12 (193-986) pg/mL TSH (0.358-3.740) uIU/mL Free T4 (0.76-1.46) ng/dL JAK2 Mutation (PCR) 02/04/18 02/04/18 02/04/18 Range/Units 01:47 01:47 01:47 WBC (4.0-11.0) th/mm3 RBC (4.50-5.90) mil/mm3 Hgb (13.0-17.0) gm/dL Hct (39.0-51.0) % MCV (80.0-100.0) fL MCH (27.0-34.0) pg MCHC (32.0-36.0) % RDW (11.6-17.2) % Plt Count (150-450) th/mm3 MPV (7.0-11.0) fL Neut % (Auto) (16.0-70.0) % Lymph % (Auto) (9.0-44.0) % [place] % (Auto) (0.0-8.0) % Eos % (Auto) (0.0-4.0) % Baso % (Auto) (0.0-2.0) % Neut # (Auto) (1.8-7.7) th/mm3 Lymph # (Auto) (1.0-4.8) th/mm3 [place] # (Auto) (0.0-0.9) th/mm3 Eos # (Auto) (0.0-0.4) th/mm3 Baso # (Auto) (0.0-0.2) th/mm3 WBC Differential Differential Comment PT (9.8-11.6) sec INR Ratio APTT (24.3-30.1) sec Puncture Site Patient Temperature O2 Saturation (90-100) % ABG pH (7.380-7.420) ABG pCO2 (38-42) mmHg ABG pO2 (61-120) mmHg ABG HCO3 (22-26) mmol/L ABG O2 Content (12.0-20.0) Vol % ABG Base Excess (-2-2) mmol/L ABG Methemoglobin (0-2) % Will Test Hemoglobin (12.0-16.0) G/DL Carboxyhemoglobin (0-4) % O2 Delivery Device Inspired O2 % Critical Value Sodium 138 (136-145) meq/L Potassium 3.7 (3.5-5.1) meq/L Chloride 95 L (98-107) meq/L Carbon Dioxide 37.0 H (21.0-32.0) meq/L Anion Gap 6 (5-15) meq/L BUN 51 H (7-18) mg/dL Creatinine 1.18 (0.60-1.30) mg/dL Estimated GFR 63 L (>89) mL/min Random Glucose 110 H (74-106) mg/dL Hemoglobin A1c (4.3-6.0) % Calcium 9.7 (8.5-10.1) mg/dL Phosphorus (2.5-4.9) mg/dL Magnesium (1.5-2.5) mg/dL Iron 42 L (65-175) mcg/dL TIBC 430 (250-450) mcg/dL % Saturation 9.8 L (20-50) % Erythropoietin 10.0 (2.6-18.5) mIU/mL Ferritin 145 (26-388) ng/mL Total Bilirubin (0.2-1.0) mg/dL AST (15-37) U/L ALT (12-78) U/L Alkaline Phosphatase (45-117) U/L Lactate Dehydrogenase 142 (87-241) U/L Total Creatine Kinase (39-308) U/L Troponin I (0.02-0.05) ng/mL B-Natriuretic Peptide 173 H (0-100) pg/mL Total Protein (6.4-8.2) g/dL Albumin (3.4-5.0) g/dL Triglycerides (42-150) mg/dL Cholesterol (120-200) mg/dL LDL Cholesterol, Calc (0-99) mg/dL HDL Cholesterol (40.0-60.0) mg/dL Cholesterol/HDL Ratio Ratio Vitamin B12 355 (193-986) pg/mL TSH (0.358-3.740) uIU/mL Free T4 (0.76-1.46) ng/dL JAK2 Mutation (PCR) 02/05/18 02/05/18 02/05/18 Range/Units 07:29 07:29 07:29 WBC 7.7 (4.0-11.0) th/mm3 RBC 5.92 H (4.50-5.90) mil/mm3 Hgb 18.6 H (13.0-17.0) gm/dL Hct 55.5 H (39.0-51.0) % MCV 93.7 (80.0-100.0) fL MCH 31.4 (27.0-34.0) pg MCHC 33.5 (32.0-36.0) % RDW 14.5 (11.6-17.2) % Plt Count 184 (150-450) th/mm3 MPV 8.7 (7.0-11.0) fL Neut % (Auto) 64.4 (16.0-70.0) % Lymph % (Auto) 20.7 (9.0-44.0) % [place] % (Auto) 12.1 H (0.0-8.0) % Eos % (Auto) 2.2 (0.0-4.0) % Baso % (Auto) 0.6 (0.0-2.0) % Neut # (Auto) 4.9 (1.8-7.7) th/mm3 Lymph # (Auto) 1.6 (1.0-4.8) th/mm3 [place] # (Auto) 0.9 (0.0-0.9) th/mm3 Eos # (Auto) 0.2 (0.0-0.4) th/mm3 Baso # (Auto) 0.0 (0.0-0.2) th/mm3 WBC Differential . Differential Comment Auto diff final PT (9.8-11.6) sec INR Ratio APTT (24.3-30.1) sec Puncture Site Patient Temperature O2 Saturation (90-100) % ABG pH (7.380-7.420) ABG pCO2 (38-42) mmHg ABG pO2 (61-120) mmHg ABG HCO3 (22-26) mmol/L ABG O2 Content (12.0-20.0) Vol % ABG Base Excess (-2-2) mmol/L ABG Methemoglobin (0-2) % Will Test Hemoglobin (12.0-16.0) G/DL Carboxyhemoglobin (0-4) % O2 Delivery Device Inspired O2 % Critical Value Sodium 138 (136-145) meq/L Potassium 3.8 (3.5-5.1) meq/L Chloride 95 L (98-107) meq/L Carbon Dioxide 34.9 H (21.0-32.0) meq/L Anion Gap 8 (5-15) meq/L BUN 49 H (7-18) mg/dL Creatinine 1.11 (0.60-1.30) mg/dL Estimated GFR 68 L (>89) mL/min Random Glucose 111 H (74-106) mg/dL Hemoglobin A1c (4.3-6.0) % Calcium 9.0 (8.5-10.1) mg/dL Phosphorus 3.6 D (2.5-4.9) mg/dL Magnesium 2.4 D (1.5-2.5) mg/dL Iron (65-175) mcg/dL TIBC (250-450) mcg/dL % Saturation (20-50) % Erythropoietin (2.6-18.5) mIU/mL Ferritin (26-388) ng/mL Total Bilirubin 0.9 (0.2-1.0) mg/dL AST 37 (15-37) U/L ALT 39 (12-78) U/L Alkaline Phosphatase 105 (45-117) U/L Lactate Dehydrogenase (87-241) U/L Total Creatine Kinase (39-308) U/L Troponin I (0.02-0.05) ng/mL B-Natriuretic Peptide 87 (0-100) pg/mL Total Protein 7.5 (6.4-8.2) g/dL Albumin 3.5 (3.4-5.0) g/dL Triglycerides (42-150) mg/dL Cholesterol (120-200) mg/dL LDL Cholesterol, Calc (0-99) mg/dL HDL Cholesterol (40.0-60.0) mg/dL Cholesterol/HDL Ratio Ratio Vitamin B12 (193-986) pg/mL TSH (0.358-3.740) uIU/mL Free T4 (0.76-1.46) ng/dL JAK2 Mutation (PCR) 02/05/18 Range/Units 07:29 WBC (4.0-11.0) th/mm3 RBC (4.50-5.90) mil/mm3 Hgb (13.0-17.0) gm/dL Hct (39.0-51.0) % MCV (80.0-100.0) fL MCH (27.0-34.0) pg MCHC (32.0-36.0) % RDW (11.6-17.2) % Plt Count (150-450) th/mm3 MPV (7.0-11.0) fL Neut % (Auto) (16.0-70.0) % Lymph % (Auto) (9.0-44.0) % [place] % (Auto) (0.0-8.0) % Eos % (Auto) (0.0-4.0) % Baso % (Auto) (0.0-2.0) % Neut # (Auto) (1.8-7.7) th/mm3 Lymph # (Auto) (1.0-4.8) th/mm3 [place] # (Auto) (0.0-0.9) th/mm3 Eos # (Auto) (0.0-0.4) th/mm3 Baso # (Auto) (0.0-0.2) th/mm3 WBC Differential Differential Comment PT (9.8-11.6) sec INR Ratio APTT (24.3-30.1) sec Puncture Site Patient Temperature O2 Saturation (90-100) % ABG pH (7.380-7.420) ABG pCO2 (38-42) mmHg ABG pO2 (61-120) mmHg ABG HCO3 (22-26) mmol/L ABG O2 Content (12.0-20.0) Vol % ABG Base Excess (-2-2) mmol/L ABG Methemoglobin (0-2) % Will Test Hemoglobin (12.0-16.0) G/DL Carboxyhemoglobin (0-4) % O2 Delivery Device Inspired O2 % Critical Value Sodium (136-145) meq/L Potassium (3.5-5.1) meq/L Chloride (98-107) meq/L Carbon Dioxide (21.0-32.0) meq/L Anion Gap (5-15) meq/L BUN (7-18) mg/dL Creatinine (0.60-1.30) mg/dL Estimated GFR (>89) mL/min Random Glucose (74-106) mg/dL Hemoglobin A1c (4.3-6.0) % Calcium (8.5-10.1) mg/dL Phosphorus (2.5-4.9) mg/dL Magnesium (1.5-2.5) mg/dL Iron (65-175) mcg/dL TIBC (250-450) mcg/dL % Saturation (20-50) % Erythropoietin (2.6-18.5) mIU/mL Ferritin (26-388) ng/mL Total Bilirubin (0.2-1.0) mg/dL AST (15-37) U/L ALT (12-78) U/L Alkaline Phosphatase (45-117) U/L Lactate Dehydrogenase (87-241) U/L Total Creatine Kinase (39-308) U/L Troponin I (0.02-0.05) ng/mL B-Natriuretic Peptide (0-100) pg/mL Total Protein (6.4-8.2) g/dL Albumin (3.4-5.0) g/dL Triglycerides (42-150) mg/dL Cholesterol (120-200) mg/dL LDL Cholesterol, Calc (0-99) mg/dL HDL Cholesterol (40.0-60.0) mg/dL Cholesterol/HDL Ratio Ratio Vitamin B12 (193-986) pg/mL TSH (0.358-3.740) uIU/mL Free T4 (0.76-1.46) ng/dL JAK2 Mutation (PCR) Imaging Data Radiologist's impression: Chest X-Ray 01/29/18 21:23 CONCLUSION: No evidence of acute cardiopulmonary disease. Discharge Plan Discharge Disposition Patient Disposition: 30 Still Patient Discharge Condition Condition: Good Discharge Order Discharge Orders: Discharge Order (Routine); Ordered 02/05/18 Ordered By: Cosme Mckinley Discharge Details Anticipated Discharge Date: 02/05/18 Discharge Comment: DC TO HOME TODAY Diagnosis: Congestive heart failure (CHF) Physicians Team ED Provider: Stephen Gagnon Primary Care Provider: Primary Care Raoi,Nerissa Attending Provider: Cosme Mckinley Other Providers: Yovani Lancaster ; Christine Latham Status ED Status: Left Department Discharge Information Discharge Date/Time: 01/30/18 02:04
[2018-01-29] MEDS ORDERED: MethylPREDNISolone Sod Succinate Inj 125 MG/2 ML Vial IV.PUSH ONE (21:35)
--- NOTE | 2018-01-29 22:02 | XR ---
EXAM DATE: 01/29/2018 9:53 PM EDT AGE/SEX: 62 years / Male INDICATIONS: Short of breath. CLINICAL DATA: This is the patient's initial encounter. Patient reports that signs and symptoms have been present for 1 day and indicates a pain score of 3/10. MEDICAL/SURGICAL HISTORY: Hypertension. Diabetes mellitus type II. Congestive heart failure. Alexa buenrostro. None. COMPARISON: [facility] [place], CHEST PA & LAT, 09/24/2017. . FINDINGS: A single AP view of the chest demonstrates the lungs to be symmetrically aerated without evidence of mass, infiltrate or effusion. The cardiomediastinal contours are unremarkable. Osseous structures a re intact. CONCLUSION: No evidence of acute cardiopulmonary disease. Electronically signed by: Manolo Truong MD 01/29/2018 10:01 PM EDT
[2018-01-29 22:24] LABS: Baso # (Auto) 0.1 th/mm3 (0.0-0.2); Baso % (Auto) 0.7 % (0.0-2.0); Eos # (Auto) 0.1 th/mm3 (0.0-0.4); Eos % (Auto) 1.6 % (0.0-4.0); Hematocrit 50.3 % (39.0-51.0); Hemoglobin 16.4 gm/dL (13.0-17.0); Lymph # (Auto) 1.1 th/mm3 (1.0-4.8); Lymph % (Auto) 11.6 % (9.0-44.0); Mean Corpuscular HGB Conc 32.6 % (32.0-36.0); Mean Corpuscular Hemoglobin 31.2 pg (27.0-34.0); Mean Corpuscular Volume 95.8 fL (80.0-100.0); Mean Platelet Volume 9.6 fL (7.0-11.0); Mono # (Auto) 0.9 th/mm3 (0.0-0.9); Mono % (Auto) 9.7 % (0.0-8.0); Neut % (Auto) 76.4 % (16.0-70.0); Platelet Count 137 th/mm3 (150-450); Red Blood Count 5.25 mil/mm3 (4.50-5.90); Red Cell Distribution Width 14.9 % (11.6-17.2); White Blood Count 9.2 th/mm3 (4.0-11.0)
[2018-01-29 22:44] LABS: Alanine Aminotransferase 20 U/L (12-78)
[2018-01-29 22:47] LABS: Activated Partial Thrombo Time 25.3 sec (24.3-30.1); INR 1.1 Ratio; Prothrombin Time 11.6 sec (9.8-11.6)
[2018-01-29 22:48] LABS: Alkaline Phosphatase 92 U/L (45-117); Total Protein 6.8 g/dL (6.4-8.2); Troponin I 0.03 ng/mL (0.02-0.05)
[2018-01-29 23:06] LABS: Albumin 3.3 g/dL (3.4-5.0); Anion Gap 8 meq/L (5-15); Aspartate Aminotransferase 25 U/L (15-37); Blood Urea Nitrogen 19 mg/dL (7-18); Calcium 8.7 mg/dL (8.5-10.1); Carbon Dioxide 28.6 meq/L (21.0-32.0); Chloride 102 meq/L (98-107); Glomerular Filtration Rate Greater Than 89 mL/min (>89); Glucose,Random 95 mg/dL (74-106); Potassium 4.3 meq/L (3.5-5.1); Sodium 139 meq/L (136-145)
--- NOTE | 2018-01-30 01:35 | P.HP ---
History of Present Illness Service: [facility] Primary Care Physician: No Primary Care Physician History of Present Illness: 62-year-old male with past medical history significant for CHF (patient reports his last EF was 30%) and hypertension presents to the emergency department for the evaluation of lower extremity edema and shortness of breath. The patient reports that for the last 5 or 6 days he has had increasing lower extremity edema, weakness and shortness of breath that is worse with exertion and lying flat. He does not have a primary care physician or a sausage cutter. He reports that he is on a water pill but does not know what kind. He also states that he takes an antihypertensive medication but he does not know what kind. He denies any chest pain. No abdominal pain. No nausea/vomiting/diarrhea. No fever/ chills. No lateralizing signs/symptoms. Review of Systems All other systems reviewed negative except as stated in HPI [facility] - History History Provided By: Patient - Medical / Surgical Hx Neg / Unobtainable Surgical History: No Previous Surgery - Medical History Medical History: Medical History (Last Reviewed 01/29/18 @ 21:33 by Stephen Gagnon) CHF (congestive heart failure) HTN (hypertension) - Family History Family History: Family History (Last Updated 01/30/18 @ 01:31 by Emily Chun MD) Other Leukemia - Tobacco History Tobacco Use In Past 30 Days: Yes Smoking Status: Current every day smoker Tobacco Type: Cigarettes - Alcohol History How Often Do You Have a Drink Containing Alcohol: Never - Substance Use History Substance History: No History of Abuse - Travel History Recent Travel in the [place] Within the Last 8 Weeks: No Recent Travel Out of the Country Within the Last 8 Weeks: No - Immunization History Tetanus Immunization: Unsure Hx Influenza Vaccine This Season: No Medications and Allergies Allergies Allergy/AdvReac Type Severity Reaction Status Date / Time No Known Allergies Allergy Unverified 01/29/18 21:19 Home Medications Medication Instructions Recorded Confirmed Type Unable to Obtain Home Meds 01/29/18 01/29/18 History Exam Vital signs: Vital Signs 01/29/18 21:06 01/29/18 21:50 01/29/18 21:51 Temperature 98.5 F Pulse Rate 48 L 50 L Respiratory Rate 18 18 Blood Pressure 156/88 H 152/84 H Pulse Oximetry 93 L 97 96 01/29/18 21:54 01/29/18 23:36 Temperature Pulse Rate 109 H 67 Respiratory Rate 18 20 Blood Pressure 142/95 H Pulse Oximetry 94 L Intake & Output 01/29/18 01/29/18 01/30/18 06:59 18:59 06:59 Weight 122.47 kg Narrative: Gen.: Moderate distress. Patient sitting up in bed with accessory muscle use to breathe. Head: Normocephalic. Atraumatic. EENT: Pupils equal round and reactive to light. Nose without drainage. Airway intact. Throat without injection. Cardiovascular: Regular rate and rhythm. No murmurs, rubs or gallops. Respiratory: Bilateral crackles. Use of accessory muscles. Abdomen: Soft, nontender, positive abdominal distention. No peritoneal signs. Umbilical hernia that is easily reducible. Musculoskeletal: No gross deformities. Bilateral 2+ lower extremity pitting edema. Skin: No obvious rashes. Chronic skin changes on bilateral lower extremities. Neuro: Sensory and motor grossly intact. Cranial nerves II through XII grossly intact. Psych: Appropriate mood and affect Results - Labs CBC & Chem 7: 01/29/18 21:45 01/29/18 21:45 Labs: Laboratory Results - last 24 hr 01/29/18 01/29/18 01/29/18 21:45 21:45 21:45 WBC 9.2 RBC 5.25 Hgb 16.4 Hct 50.3 MCV 95.8 MCH 31.2 MCHC 32.6 RDW 14.9 Plt Count 137 L MPV 9.6 Neut % (Auto) 76.4 H Lymph % (Auto) 11.6 [place] % (Auto) 9.7 H Eos % (Auto) 1.6 Baso % (Auto) 0.7 Neut # (Auto) 7.0 Lymph # (Auto) 1.1 [place] # (Auto) 0.9 Eos # (Auto) 0.1 Baso # (Auto) 0.1 WBC Differential . Differential Comment Auto diff final PT 11.6 INR 1.1 APTT 25.3 Sodium 139 Potassium 4.3 Chloride 102 Carbon Dioxide 28.6 Anion Gap 8 BUN 19 H Creatinine 0.84 Estimated GFR Greater than 89 Random Glucose 95 Calcium 8.7 Total Bilirubin 0.7 AST 25 ALT 20 Alkaline Phosphatase 92 Total Creatine Kinase Troponin I 0.03 B-Natriuretic Peptide Total Protein 6.8 Albumin 3.3 L 01/29/18 01/29/18 21:45 21:45 WBC RBC Hgb Hct MCV MCH MCHC RDW Plt Count MPV Neut % (Auto) Lymph % (Auto) [place] % (Auto) Eos % (Auto) Baso % (Auto) Neut # (Auto) Lymph # (Auto) [place] # (Auto) Eos # (Auto) Baso # (Auto) WBC Differential Differential Comment PT INR APTT Sodium Potassium Chloride Carbon Dioxide Anion Gap BUN Creatinine Estimated GFR Random Glucose Calcium Total Bilirubin AST ALT Alkaline Phosphatase Total Creatine Kinase 52 Troponin I B-Natriuretic Peptide 1594 H Total Protein Albumin - Imaging Impressions Chest X-Ray 01/29/18 21:23 CONCLUSION: No evidence of acute cardiopulmonary disease. Caprini VTE Risk Assessment Caprini VTE Risk Assessment: Moderate/High Risk (score >= 2) Caprini Risk Assessment Model: Point Value = 1 Point Value = 2 Point Value = 3 Point Value = 5 Age 41-60 Minor surgery BMI > 25 kg/m2 Swollen legs Varicose veins or History of unexplained or recurrent spontaneous Oral contraceptives or hormone replacement Sepsis (< 1 month) Serious lung disease, including pneumonia (< 1 month) Abnormal pulmonary function Acute myocardial infarction Congestive heart failure (< 1 month) History of inflammatory bowel disease Medical patient at bed rest Age 61-74 Arthroscopic surgery Major open surgery (> 45 min) Laparoscopic surgery (> 45 min) Malignancy Confined to bed (> 72 hours) Immobilizing plaster cast Central venous access Age >= 75 History of VTE Family history of VTE Factor V Leiden Prothrombin [id number] Lupus anticoagulant Anticardiolipin antibodies Elevated serum homocysteine Heparin-induced thrombocytopenia Other congenital or acquired thrombophilia Stroke (< 1 month) Elective arthroplasty Hip, pelvis, or leg fracture Acute spinal cord injury (< 1 month) Prophylaxis Regimen: Total Risk Factor Score Risk Level Prophylaxis Regimen 0-1 Low Early ambulation 2 Moderate Order ONE of the following: *Sequential Compression Device (SCD) *Heparin 5000 units SQ BID 3-4 Higher Order ONE of the following medications: *Heparin 5000 units SQ TID *Enoxaparin/Lovenox 40 mg SQ daily (WT < 150 kg, CrCl > 30 mL/min) *Enoxaparin/Lovenox 30 mg SQ daily (WT < 150 kg, CrCl > 10-29 mL/min) *Enoxaparin/Lovenox 30 mg SQ BID (WT < 150 kg, CrCl > 30 mL/min) AND/OR *Sequential Compression Device (SCD) 5 or more Highest Order ONE of the following medications: *Heparin 5000 units SQ TID (Preferred with Epidurals) *Enoxaparin/Lovenox 40 mg SQ daily (WT < 150 kg, CrCl > 30 mL/min) *Enoxaparin/Lovenox 30 mg SQ daily (WT < 150 kg, CrCl > 10-29 mL/min) *Enoxaparin/Lovenox 30 mg SQ BID (WT < 150 kg, CrCl > 30 mL/min) AND *Sequential Compression Device (SCD) Assessment and Plan - Plan Assessment/plan: 1. CHF exacerbation Supplemental oxygen as needed Echo pending IV Lasix Coreg Cardiology consulted, appreciate recommendations 2. Hypertension Patient does not know what his antihypertensive medication is Coreg as above Adjust as needed FEN Cardiac diet Electrolytes: Monitor and replete as needed Heparin
[2018-01-30] MEDS: Heparin - SQ 10,000 UNITS/ML Vial SQ SCH ×3 (05:32→22:25)
--- NOTE | 2018-01-30 14:45 | MB ---
cc: Yovani Lancaster MD DATE: 01/30/2018 HISTORY OF PRESENT ILLNESS: Ralph is a very pleasant 62-year-old gentleman with history of cardiomyopathy. He notes a 20-pound weight gain recently with orthopnea and severe dyspnea on exertion with ADLs. He feels much better today. He is able to lie supine comfortably. He does admit to some chest tightness, but no chest pain. Otherwise, has an occasional cough, GI or bleeding, PND; denies any syncope PAST MEDICAL HISTORY: Includes CHF and hypertension. ALLERGIES: NONE. SOCIAL HISTORY: Smokes every day. Denies alcohol use. MEDICATIONS: In the hospital, Coreg 3.5 b.i.d., Lasix 40 mg IV b.i.d., heparin 5000 subcutaneous q. 8 hours. He did receive an aspirin 81 mg in the ER. PHYSICAL EXAMINATION: VITAL SIGNS: Blood pressure 147/82, pulse 71, temperature 97.4, respiratory rate 18. GENERAL: He is alert, oriented x3, in no acute distress. NECK: Supple. No JVD. No bruit. CARDIOVASCULAR: S1, S2. No murmurs, rubs or gallops. LUNGS: Clear to auscultation bilaterally. ABDOMEN: Soft, nontender, nondistended with positive bowel sounds. EXTREMITIES: No lower extremity edema. IMAGING STUDIES: Chest x-ray shows no evidence of acute cardiopulmonary disease. EKG shows normal sinus rhythm at 91 beats per minute with ventricular bigeminy. LABORATORY DATA: White count 9.2, hemoglobin 16.4, hematocrit 50.3, platelet count 137. INR is 1.1. Sodium 139, potassium 4.3, chloride 103, bicarbonate 28.6, BUN 19, creatinine 0.4. Troponins 0.03. BNP is 1590. DIAGNOSES: 1. Cardiomyopathy. 2. Decompensated congestive heart failure. 3. Thrombocytopenia. 4. Tobacco abuse. DISCUSSION: At this point in time, agree with diuresis. We will get a 2-D echo, monitor the patient's intake and output, also his weight. Initially his weight was 122.47 kilograms. We will follow trends in symptoms, hemodynamics, BMP and creatinine and follow up his 2-D echo. Strongly recommend smoking cessation. MD ANN Kamara/CLEO , 02:21 PM , 02:29 PM
--- NOTE | 2018-01-30 19:27 | ECHRPT ---
Indication: HEART FAILURE CONCLUSIONS Moderately dilated left ventricle. The left ventricular systolic function is severely reduced with an estimated ejection fraction in th e range of 30-35%. The left atrial size is moderately dilated. The right atrial size is dozb-hz-jzkaqpalrd dilated. Zfljx-hl-cvwl mitral valve regurgitation. There is trace tricuspid valve regurgitation. The estimated pulmonary arterial pressure is 33.6 mmHg. Trivial pulmonary valve regurgitation. BP: / HR: Rhythm: Sinus MEASUREMENTS (Male / Female) Normal Values Technical Quality:Very technically difficult study 2D ECHO LVOT Diameter 2.6 cm Aortic Root Diameter 3.7 cm M-MODE LV Diastolic Diameter MM 7.5 cm 4.2 - 5.9 / 3.9 - 5.3 cm LV Systolic Diameter MM 6.5 cm LV Ejection Fraction MM Teich 28.9 % IVS Diastolic Thickness MM 1.3 cm 0.6 - 1.0 / 0.6 - 0.9 cm LVPW Diastolic Thickness MM 1.3 cm 0.6 - 1.0 / 0.6 - 0.9 cm LV Relative Wall Thickness MM 0.4 0.24 - 0.42 / 0.22 - 0.42 RV Diastolic Diameter MM 2.5 cm AV Cusp Separation MM 2.3 cm DOPPLER TR Peak Velocity 243.0 cm/s TR Peak Gradient 23.6 mmHg Right Atrial Pressure 10.0 mmHg Pulmonary Artery Systolic Pressu 33.6 mmHg Right Ventricular Systolic Press 33.6 mmHg PV Peak Velocity 55.6 cm/s PV Peak Gradient 1.2 mmHg FINDINGS LEFT VENTRICLE Moderately dilated left ventricle. The left ventricular systolic function is severely reduced with an estimated ejection fraction in th e range of 30-35%. RIGHT VENTRICLE Normal right ventricular size and systolic function. LEFT ATRIUM The left atrial size is moderately dilated. RIGHT ATRIUM The right atrial size is uwkw-qk-qxvwzkbxqj dilated. ATRIAL SEPTUM The interatrial septum not well visualized. AORTA The aortic root and proximal ascending aorta are not well visualized. MITRAL VALVE Wfejf-ff-hhri mitral valve regurgitation. AORTIC VALVE Trileaflet aortic valve. No aortic valve stenosis or regurgitation. TRICUSPID VALVE There is trace tricuspid valve regurgitation. The estimated pulmonary arterial pressure is 33.6 mmHg. PULMONARY VALVE Trivial pulmonary valve regurgitation. VESSELS PERICARDIUM No pericardial effusion. Favio Eduardo MD (Electronically Signed) Final Date:30 January 2018 19:26
--- NOTE | 2018-01-30 22:13 | ECG ---
Date Performed: 01/29/2018 Time Performed: 21:26:39 PTAGE: 62 years EKG: Sinus rhythm WITH FREQUENT VENTRICULAR PREMATURE COMPLEXES IN A BIGEMINAL PATTERN ANTEROSEPTAL MYOCARDIAL INFARCT ION ABNORMAL ECG Compared to PREVIOUS TRACING , PVCS present DOCTOR: Shelli Mandujano Interpretating Date/Time 01/30/2018 22:11:15
[2018-01-31] MEDS: Heparin - SQ 10,000 UNITS/ML Vial SQ SCH ×3 (07:01→22:43)
[2018-01-31 09:24] LABS: Baso # (Auto) 0.1 th/mm3 (0.0-0.2); Baso % (Auto) 0.4 % (0.0-2.0); Eos % (Auto) 0.2 % (0.0-4.0); Hematocrit 52.3 % (39.0-51.0); Hemoglobin 16.6 gm/dL (13.0-17.0); Lymph % (Auto) 7.2 % (9.0-44.0); Mean Corpuscular HGB Conc 31.8 % (32.0-36.0); Mean Corpuscular Hemoglobin 30.8 pg (27.0-34.0); Mean Corpuscular Volume 96.6 fL (80.0-100.0); Mean Platelet Volume 9.2 fL (7.0-11.0); Mono # (Auto) 1.1 th/mm3 (0.0-0.9); Mono % (Auto) 7.9 % (0.0-8.0); Neut # (Auto) 11.5 th/mm3 (1.8-7.7); Neut % (Auto) 84.3 % (16.0-70.0); Platelet Count 146 th/mm3 (150-450); Red Blood Count 5.41 mil/mm3 (4.50-5.90); Red Cell Distribution Width 15.1 % (11.6-17.2); White Blood Count 13.7 th/mm3 (4.0-11.0)
[2018-01-31 09:47] LABS: Albumin 3.2 g/dL (3.4-5.0); Anion Gap 6 meq/L (5-15); Blood Urea Nitrogen 26 mg/dL (7-18); Calcium 9.1 mg/dL (8.5-10.1); Carbon Dioxide 31.5 meq/L (21.0-32.0); Chloride 102 meq/L (98-107); Glomerular Filtration Rate Greater Than 89 mL/min (>89); Glucose,Random 100 mg/dL (74-106); Potassium 4.5 meq/L (3.5-5.1); Sodium 139 meq/L (136-145)
[2018-01-31 09:48] LABS: Alanine Aminotransferase 18 U/L (12-78); Aspartate Aminotransferase 21 U/L (15-37)
[2018-01-31 09:51] LABS: Alkaline Phosphatase 79 U/L (45-117)
--- NOTE | 2018-01-31 11:46 | P.PNCA ---
Subjective Interval history: dyspnea improving Physical Exam Vital signs: Vital Signs 01/30/18 12:00 01/30/18 12:30 01/30/18 15:35 Temperature 97.4 F L 97.9 F Pulse Rate 71 60 Respiratory Rate 18 18 Blood Pressure 147/82 H 146/79 H Pulse Oximetry 90 L 91 L 91 L 01/30/18 20:00 01/31/18 00:00 01/31/18 08:00 Temperature 98.2 F 98.2 F 97.5 F L Pulse Rate 62 66 84 Respiratory Rate 18 18 14 Blood Pressure 141/76 H 146/92 H 121/81 Pulse Oximetry 92 L 90 L 93 L Intake & Output 01/30/18 01/31/18 01/31/18 18:59 06:59 18:59 Output Total 725 / 725 275 / 275 Balance -725 / -725 -275 / -275 Output: Urine 725 / 725 275 / 275 Other: # Voids 1 Date of Last Bowel Movement 01/29/18 01/29/18 Assessment and Plan - Assessment (1) Cardiomyopathy Code(s): I42.9 - Cardiomyopathy, unspecified Status: Acute - Plan 1.) Cardiomyopathy - volume overload improving, f/u bnp in am, add lisinopril 2.5 mg qd, continue coreg, lasix
--- NOTE | 2018-01-31 11:52 | P.PNIM ---
Subjective Interval history: 62-year-old male with past medical history significant for CHF (patient reports his last EF was 30%) and hypertension presents to the emergency department for the evaluation of lower extremity edema and shortness of breath. The patient reports that for the last 5 or 6 days he has had increasing lower extremity edema, weakness and shortness of breath that is worse with exertion and lying flat. 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 He reports that he is on a water pill but does not know what kind. He also states that he takes an antihypertensive medication but he does not know what kind. He denies any chest pain. No abdominal pain. No nausea/vomiting/diarrhea. No fever/ chills. No lateralizing signs/symptoms. 8-10 WILL CONTINUE TO DIURESE STILL VERY SWOLLEN BL LE HAS BLISTERS ON LOWER EXTREMITY FROM EXTRA FLUID Physical Exam Vital signs: Vital Signs 01/30/18 12:00 01/30/18 12:30 01/30/18 15:35 Temperature 97.4 F L 97.9 F Pulse Rate 71 60 Respiratory Rate 18 18 Blood Pressure 147/82 H 146/79 H Pulse Oximetry 90 L 91 L 91 L 01/30/18 20:00 01/31/18 00:00 01/31/18 08:00 Temperature 98.2 F 98.2 F 97.5 F L Pulse Rate 62 66 84 Respiratory Rate 18 18 14 Blood Pressure 141/76 H 146/92 H 121/81 Pulse Oximetry 92 L 90 L 93 L Intake & Output 01/30/18 01/31/18 01/31/18 18:59 06:59 18:59 Output Total 725 / 725 275 / 275 Balance -725 / -725 -275 / -275 Output: Urine 725 / 725 275 / 275 Other: # Voids 1 Date of Last Bowel Movement 01/29/18 01/29/18 Narrative: Gen.: Moderate distress. Patient sitting up in bed with accessory muscle use to breathe. Head: Normocephalic. Atraumatic. EENT: Pupils equal round and reactive to light. Nose without drainage. Airway intact. Throat without injection. Cardiovascular: Regular rate and rhythm. No murmurs, rubs or gallops. Respiratory: Bilateral crackles. Use of accessory muscles. Abdomen: Soft, nontender, positive abdominal distention. No peritoneal signs. Umbilical hernia that is easily reducible. Musculoskeletal: No gross deformities. Bilateral 2+ lower extremity pitting edema. Skin: No obvious rashes. Chronic skin changes on bilateral lower extremities. Neuro: Sensory and motor grossly intact. Cranial nerves II through XII grossly intact. Psych: Appropriate mood and affect Results - Labs CBC & Chem 7: 01/31/18 09:01 01/31/18 09:07 Laboratory Results - last 24 hr 01/30/18 01/31/18 01/31/18 20:19 09:01 09:07 WBC 13.7 H RBC 5.41 Hgb 16.6 Hct 52.3 H MCV 96.6 MCH 30.8 MCHC 31.8 L RDW 15.1 Plt Count 146 L MPV 9.2 Neut % (Auto) 84.3 H Lymph % (Auto) 7.2 L [place] % (Auto) 7.9 Eos % (Auto) 0.2 Baso % (Auto) 0.4 Neut # (Auto) 11.5 H Lymph # (Auto) 1.0 [place] # (Auto) 1.1 H Eos # (Auto) 0.0 Baso # (Auto) 0.1 WBC Differential . Differential Comment Auto diff final Sodium 139 Potassium 4.5 Chloride 102 Carbon Dioxide 31.5 Anion Gap 6 BUN 26 H Creatinine 0.76 Estimated GFR Greater than 89 Random Glucose 100 Calcium 9.1 Total Bilirubin 1.2 H AST 21 ALT 18 Alkaline Phosphatase 79 Troponin I Less than 0.02 L Less than 0.02 L B-Natriuretic Peptide Total Protein 7.0 Albumin 3.2 L 01/31/18 09:07 WBC RBC Hgb Hct MCV MCH MCHC RDW Plt Count MPV Neut % (Auto) Lymph % (Auto) [place] % (Auto) Eos % (Auto) Baso % (Auto) Neut # (Auto) Lymph # (Auto) [place] # (Auto) Eos # (Auto) Baso # (Auto) WBC Differential Differential Comment Sodium Potassium Chloride Carbon Dioxide Anion Gap BUN Creatinine Estimated GFR Random Glucose Calcium Total Bilirubin AST ALT Alkaline Phosphatase Troponin I B-Natriuretic Peptide 1199 H Total Protein Albumin Assessment and Plan - Plan 1. CHF exacerbation Supplemental oxygen as needed Echo pending IV Lasix Coreg Cardiology consulted, appreciate recommendations LISINOPRIL ADDED BY CARDIOL 2. Hypertension Patient does not know what his antihypertensive medication is Coreg as above Adjust as needed ON COREG AND LISINOPRIL LASIX 3 CARDIOMYOPATHY CONTINUE TO DIURESES AM LABS MALIGNANT MEDICAL NONCOMPLIANCE TOBACCO ABUSE--SMOKING CESSATION RECOMMENDED- STILL WANTS TO GO OUTSIDE TO SMOKE AM LABS FEN Cardiac diet Electrolytes: Monitor and replete as needed Heparin Code Status: FULL CODE Discussed Condition With: RN AND PT AND CM Discharge Planning: WHEN AT CLOSE TO DRY WEIGHT
[2018-02-01] MEDS: Heparin - SQ 10,000 UNITS/ML Vial SQ SCH ×3 (05:23→21:40)
[2018-02-01] MEDS ORDERED: Lisinopril 5 MG Tablet PO SCH (09:00)
[2018-02-01 09:28] LABS: Baso # (Auto) 0.1 th/mm3 (0.0-0.2); Baso % (Auto) 0.5 % (0.0-2.0); Eos # (Auto) 0.1 th/mm3 (0.0-0.4); Hemoglobin 17.2 gm/dL (13.0-17.0); Lymph # (Auto) 1.3 th/mm3 (1.0-4.8); Lymph % (Auto) 10.7 % (9.0-44.0); Mean Corpuscular HGB Conc 33.1 % (32.0-36.0); Mean Corpuscular Hemoglobin 31.5 pg (27.0-34.0); Mean Corpuscular Volume 95.3 fL (80.0-100.0); Mean Platelet Volume 9.3 fL (7.0-11.0); Mono # (Auto) 1.1 th/mm3 (0.0-0.9); Mono % (Auto) 9.3 % (0.0-8.0); Neut # (Auto) 9.6 th/mm3 (1.8-7.7); Neut % (Auto) 78.5 % (16.0-70.0); Platelet Count 153 th/mm3 (150-450); Red Blood Count 5.46 mil/mm3 (4.50-5.90); Red Cell Distribution Width 14.8 % (11.6-17.2); White Blood Count 12.2 th/mm3 (4.0-11.0)
[2018-02-01 09:30] LABS: INR 1.1 Ratio; Prothrombin Time 11.5 sec (9.8-11.6)
[2018-02-01 09:45] LABS: Albumin 3.4 g/dL (3.4-5.0); Anion Gap 7 meq/L (5-15); Aspartate Aminotransferase 17 U/L (15-37); Blood Urea Nitrogen 31 mg/dL (7-18); Calcium 8.8 mg/dL (8.5-10.1); Carbon Dioxide 33.3 meq/L (21.0-32.0); Chloride 100 meq/L (98-107); Glomerular Filtration Rate 86 mL/min (>89); Glucose,Random 82 mg/dL (74-106); Sodium 140 meq/L (136-145)
[2018-02-01 09:46] LABS: Alanine Aminotransferase 20 U/L (12-78); Cholesterol 160 mg/dL (120-200); Triglycerides 178 mg/dL (42-150)
[2018-02-01 09:55] LABS: Alkaline Phosphatase 93 U/L (45-117); Chol/HDL Ratio 4.17 Ratio; Free T4 (Free Thyroxine) 1.11 ng/dL (0.76-1.46); HDL Cholesterol 38.3 mg/dL (40.0-60.0); LDL Cholesterol,Calculated 86 mg/dL (0-99); Phosphorus 4.2 mg/dL (2.5-4.9); Total Protein 7.2 g/dL (6.4-8.2)
--- NOTE | 2018-02-01 10:23 | P.PNIM ---
Subjective Interval history: 62-year-old male with past medical history significant for CHF (patient reports his last EF was 30%) and hypertension presents to the emergency department for the evaluation of lower extremity edema and shortness of breath. The patient reports that for the last 5 or 6 days he has had increasing lower extremity edema, weakness and shortness of breath that is worse with exertion and lying flat. 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 He reports that he is on a water pill but does not know what kind. He also states that he takes an antihypertensive medication but he does not know what kind. He denies any chest pain. No abdominal pain. No nausea/vomiting/diarrhea. No fever/ chills. No lateralizing signs/symptoms. 8-10 WILL CONTINUE TO DIURESE STILL VERY SWOLLEN BL LE HAS BLISTERS ON LOWER EXTREMITY FROM EXTRA FLUID 811 HAS BEEN ATTEMPTING TO GO OUTSIDE TO SMOKE STATES BL LE SWELLING NOT IMPROVED ENOUGH YET DW RN AND PT ADJUST MEDS Add Zaroxolyn 5 mg p.o. daily Increase lisinopril to 10 mg p.o. daily Continue on Lasix and diuresis A.m. labs Physical Exam Vital signs: Vital Signs 01/31/18 12:00 01/31/18 15:46 01/31/18 18:16 Temperature 96.3 F L 97.6 F Pulse Rate 57 L 77 Respiratory Rate 16 18 Blood Pressure 137/77 118/68 Pulse Oximetry 87 L 92 L 01/31/18 19:21 01/31/18 23:07 02/01/18 03:20 Temperature 98.3 F 98.2 F 98.0 F Pulse Rate 63 61 61 Respiratory Rate 20 19 15 Blood Pressure 131/72 150/78 H 148/80 H Pulse Oximetry 92 L 92 L 94 L 02/01/18 07:59 02/01/18 08:00 Temperature 99.0 F Pulse Rate 98 H Respiratory Rate 18 18 Blood Pressure 163/108 H Pulse Oximetry 96 Intake & Output 01/31/18 02/01/18 02/01/18 18:59 06:59 18:59 Intake Total 240 / 240 472 / 472 Output Total 725 / 725 775 / 775 Balance -485 / -485 -303 / -303 Intake: Oral 240 / 240 472 / 472 Output: Urine 725 / 725 775 / 775 Other: # Voids 2 Narrative: Gen.: Moderate distress. Patient sitting up in bed with accessory muscle use to breathe. Head: Normocephalic. Atraumatic. EENT: Pupils equal round and reactive to light. Nose without drainage. Airway intact. Throat without injection. Cardiovascular: Regular rate and rhythm. No murmurs, rubs or gallops. Respiratory: Bilateral crackles. Use of accessory muscles. Abdomen: Soft, nontender, positive abdominal distention. No peritoneal signs. Umbilical hernia that is easily reducible. Musculoskeletal: No gross deformities. Bilateral 2+ lower extremity pitting edema. Skin: No obvious rashes. Chronic skin changes on bilateral lower extremities. Neuro: Sensory and motor grossly intact. Cranial nerves II through XII grossly intact. Psych: Appropriate mood and affect Results - Labs CBC & Chem 7: 02/01/18 08:59 02/01/18 08:59 Laboratory Results - last 24 hr 01/31/18 02/01/18 02/01/18 09:07 08:59 08:59 WBC 12.2 H RBC 5.46 Hgb 17.2 H Hct 52.0 H MCV 95.3 MCH 31.5 MCHC 33.1 RDW 14.8 Plt Count 153 MPV 9.3 Neut % (Auto) 78.5 H Lymph % (Auto) 10.7 [place] % (Auto) 9.3 H Eos % (Auto) 1.0 Baso % (Auto) 0.5 Neut # (Auto) 9.6 H Lymph # (Auto) 1.3 [place] # (Auto) 1.1 H Eos # (Auto) 0.1 Baso # (Auto) 0.1 WBC Differential . Differential Comment Auto diff final PT 11.5 INR 1.1 Sodium Potassium Chloride Carbon Dioxide Anion Gap BUN Creatinine Estimated GFR Random Glucose Calcium Phosphorus Magnesium Total Bilirubin AST ALT Alkaline Phosphatase B-Natriuretic Peptide 1199 H Total Protein Albumin Triglycerides Cholesterol LDL Cholesterol, Calc HDL Cholesterol Cholesterol/HDL Ratio TSH Free T4 02/01/18 02/01/18 08:59 08:59 WBC RBC Hgb Hct MCV MCH MCHC RDW Plt Count MPV Neut % (Auto) Lymph % (Auto) [place] % (Auto) Eos % (Auto) Baso % (Auto) Neut # (Auto) Lymph # (Auto) [place] # (Auto) Eos # (Auto) Baso # (Auto) WBC Differential Differential Comment PT INR Sodium 140 Potassium 4.0 Chloride 100 Carbon Dioxide 33.3 H Anion Gap 7 BUN 31 H Creatinine 0.90 Estimated GFR 86 L Random Glucose 82 Calcium 8.8 Phosphorus 4.2 Magnesium 2.0 Total Bilirubin 0.9 AST 17 ALT 20 Alkaline Phosphatase 93 B-Natriuretic Peptide 1324 H Total Protein 7.2 Albumin 3.4 Triglycerides 178 H Cholesterol 160 LDL Cholesterol, Calc 86 HDL Cholesterol 38.3 L Cholesterol/HDL Ratio 4.17 TSH 1.060 Free T4 1.11 Assessment and Plan - Plan 1. CHF exacerbation Supplemental oxygen as needed Echo pending IV Lasix Coreg Cardiology consulted, appreciate recommendations LISINOPRIL ADDED BY CARDIOLOGY WILL ADD Zaroxolyn 5 mg p.o. daily Increase lisinopril to 10 mg p.o. daily 2. Hypertension Patient does not know what his antihypertensive medication is Coreg as above Adjust as needed ON COREG AND LISINOPRIL LASIX 3 CARDIOMYOPATHY CONTINUE TO DIURESES AM LABS Dyslipidemia will start on Pravachol 40 mg p.o. daily MALIGNANT MEDICAL NONCOMPLIANCE TOBACCO ABUSE--SMOKING CESSATION RECOMMENDED- STILL WANTS TO GO OUTSIDE TO SMOKE AM LABS FEN Cardiac diet Electrolytes: Monitor and replete as needed Heparin Code Status: FULL CODE Discussed Condition With: RN AND PT AND CM Discharge Planning: WHEN AT CLOSE TO DRY WEIGHT
--- NOTE | 2018-02-01 11:38 | P.PNCA ---
Subjective Interval history: alert in nad Physical Exam Vital signs: Vital Signs 01/31/18 12:00 01/31/18 15:46 01/31/18 18:16 Temperature 96.3 F L 97.6 F Pulse Rate 57 L 77 Respiratory Rate 16 18 Blood Pressure 137/77 118/68 Pulse Oximetry 87 L 92 L 01/31/18 19:21 01/31/18 23:07 02/01/18 03:20 Temperature 98.3 F 98.2 F 98.0 F Pulse Rate 63 61 61 Respiratory Rate 20 19 15 Blood Pressure 131/72 150/78 H 148/80 H Pulse Oximetry 92 L 92 L 94 L 02/01/18 07:59 02/01/18 08:00 Temperature 99.0 F Pulse Rate 98 H Respiratory Rate 18 18 Blood Pressure 163/108 H Pulse Oximetry 96 Intake & Output 01/31/18 02/01/18 02/01/18 18:59 06:59 18:59 Intake Total 240 / 240 472 / 472 Output Total 725 / 725 775 / 775 Balance -485 / -485 -303 / -303 Intake: Oral 240 / 240 472 / 472 Output: Urine 725 / 725 775 / 775 Other: # Voids 2 Assessment and Plan - Assessment (1) Cardiomyopathy Code(s): I42.9 - Cardiomyopathy, unspecified Status: Acute - Plan 1.) Cardiomyopathy - volume overload improving, f/u bnp in am, continue lisinopril 10 mg qd, coreg, lasix
[2018-02-01 12:51] LABS: Hemoglobin A1c 5.3 % (4.3-6.0)
[2018-02-01] MEDS: metOLazone 5 MG Tablet PO SCH (13:13)
[2018-02-02] MEDS: Heparin - SQ 10,000 UNITS/ML Vial SQ SCH ×3 (05:38→21:46)
[2018-02-02] MEDS: metOLazone 5 MG Tablet PO SCH (09:36)
[2018-02-02] MEDS: Lisinopril 10 MG Tablet PO SCH (09:36)
--- NOTE | 2018-02-02 11:09 | P.PNIM ---
Subjective Interval history: 62-year-old male with past medical history significant for CHF (patient reports his last EF was 30%) and hypertension presents to the emergency department for the evaluation of lower extremity edema and shortness of breath. The patient reports that for the last 5 or 6 days he has had increasing lower extremity edema, weakness and shortness of breath that is worse with exertion and lying flat. 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 He reports that he is on a water pill but does not know what kind. He also states that he takes an antihypertensive medication but he does not know what kind. He denies any chest pain. No abdominal pain. No nausea/vomiting/diarrhea. No fever/ chills. No lateralizing signs/symptoms. 8-10 WILL CONTINUE TO DIURESE STILL VERY SWOLLEN BL LE HAS BLISTERS ON LOWER EXTREMITY FROM EXTRA FLUID 811 HAS BEEN ATTEMPTING TO GO OUTSIDE TO SMOKE STATES BL LE SWELLING NOT IMPROVED ENOUGH YET DW RN AND PT ADJUST MEDS Add Zaroxolyn 5 mg p.o. daily Increase lisinopril to 10 mg p.o. daily Continue on Lasix and diuresis A.m. labs 8-12 STATES HE IS PEEING BETTER LESS SWELLING BL LE AWAIT AM LABS CONTINUE TO DIURESE Physical Exam Vital signs: Vital Signs 02/01/18 12:00 02/01/18 16:00 02/01/18 19:49 Temperature 99.0 F 97.9 F 98.2 F Pulse Rate 54 L 60 61 Respiratory Rate 16 18 17 Blood Pressure 134/74 141/84 H 130/72 Pulse Oximetry 96 96 96 02/01/18 23:25 02/02/18 03:27 02/02/18 04:00 Temperature 98.1 F 98.3 F Pulse Rate 58 L 61 65 Respiratory Rate 18 18 Blood Pressure 131/79 134/80 Pulse Oximetry 94 L 95 02/02/18 08:00 Temperature 98.3 F Pulse Rate 60 Respiratory Rate 18 Blood Pressure 161/92 H Pulse Oximetry 94 L Intake & Output 02/01/18 02/02/18 02/02/18 18:59 06:59 18:59 Other: Date of Last Bowel Movement 01/29/18 Narrative: Gen.: Moderate distress. Patient sitting up in bed with accessory muscle use to breathe. Head: Normocephalic. Atraumatic. EENT: Pupils equal round and reactive to light. Nose without drainage. Airway intact. Throat without injection. Cardiovascular: Regular rate and rhythm. No murmurs, rubs or gallops. Respiratory: Bilateral crackles. Use of accessory muscles. Abdomen: Soft, nontender, positive abdominal distention. No peritoneal signs. Umbilical hernia that is easily reducible. Musculoskeletal: No gross deformities. Bilateral 2+ lower extremity pitting edema. Skin: No obvious rashes. Chronic skin changes on bilateral lower extremities. Neuro: Sensory and motor grossly intact. Cranial nerves II through XII grossly intact. Psych: Appropriate mood and affect Results - Labs CBC & Chem 7: 02/01/18 08:59 02/01/18 08:59 Laboratory Results - last 24 hr 02/01/18 08:59 Hemoglobin A1c 5.3 - Imaging Chest X-Ray 01/29/18 21:23 CONCLUSION: No evidence of acute cardiopulmonary disease. - Procedures NONE Assessment and Plan - Plan 1. CHF exacerbation Supplemental oxygen as needed Echo pending IV Lasix Coreg Cardiology consulted, appreciate recommendations LISINOPRIL ADDED BY CARDIOLOGY WILL ADD Zaroxolyn 5 mg p.o. daily Increase lisinopril to 10 mg p.o. daily 2. Hypertension Patient does not know what his antihypertensive medication is Coreg as above Adjust as needed ON COREG AND LISINOPRIL LASIX 3 CARDIOMYOPATHY CONTINUE TO DIURESES AM LABS Dyslipidemia will start on Pravachol 40 mg p.o. daily MALIGNANT MEDICAL NONCOMPLIANCE TOBACCO ABUSE--SMOKING CESSATION RECOMMENDED- STILL WANTS TO GO OUTSIDE TO SMOKE AM LABS FEN Cardiac diet Electrolytes: Monitor and replete as needed Heparin Code Status: FULL CODE Discussed Condition With: RN AND PT AND CM Discharge Planning: WHEN AT CLOSE TO DRY WEIGHT
--- NOTE | 2018-02-02 13:20 | P.PNCA ---
Subjective Interval history: states u/o increasing and dyspnea improving Physical Exam Vital signs: Vital Signs 02/01/18 16:00 02/01/18 19:49 02/01/18 23:25 Temperature 97.9 F 98.2 F 98.1 F Pulse Rate 60 61 58 L Respiratory Rate 18 17 18 Blood Pressure 141/84 H 130/72 131/79 Pulse Oximetry 96 96 94 L 02/02/18 03:27 02/02/18 04:00 02/02/18 08:00 Temperature 98.3 F 98.3 F Pulse Rate 61 65 60 Respiratory Rate 18 18 Blood Pressure 134/80 161/92 H Pulse Oximetry 95 94 L 02/02/18 11:46 Temperature 98.5 F Pulse Rate 62 Respiratory Rate 16 Blood Pressure 125/72 Pulse Oximetry 92 L Intake & Output 02/01/18 02/02/18 02/02/18 18:59 06:59 18:59 Other: Date of Last Bowel Movement 01/29/18 Assessment and Plan - Assessment (1) Cardiomyopathy Code(s): I42.9 - Cardiomyopathy, unspecified Status: Acute - Plan 1.) Cardiomyopathy - volume overload worsening per bnp this am although patient perceives he is clinically improving, f/u bnp in am, if not improving will schedule rhc and lhc 02/03/18, continue lisinopril 10 mg qd, coreg, lasix
[2018-02-02 15:43] LABS: Baso % (Auto) 0.5 % (0.0-2.0); Eos # (Auto) 0.1 th/mm3 (0.0-0.4); Eos % (Auto) 1.7 % (0.0-4.0); Hematocrit 54.7 % (39.0-51.0); Hemoglobin 18.3 gm/dL (13.0-17.0); Lymph # (Auto) 1.2 th/mm3 (1.0-4.8); Lymph % (Auto) 16.2 % (9.0-44.0); Mean Corpuscular HGB Conc 33.4 % (32.0-36.0); Mean Corpuscular Hemoglobin 31.5 pg (27.0-34.0); Mean Corpuscular Volume 94.1 fL (80.0-100.0); Mean Platelet Volume 9.5 fL (7.0-11.0); Mono # (Auto) 0.6 th/mm3 (0.0-0.9); Mono % (Auto) 7.7 % (0.0-8.0); Neut # (Auto) 5.7 th/mm3 (1.8-7.7); Neut % (Auto) 73.9 % (16.0-70.0); Platelet Count 160 th/mm3 (150-450); Red Blood Count 5.82 mil/mm3 (4.50-5.90); Red Cell Distribution Width 14.8 % (11.6-17.2); White Blood Count 7.7 th/mm3 (4.0-11.0)
[2018-02-02 16:18] LABS: Albumin 3.4 g/dL (3.4-5.0); Anion Gap 9 meq/L (5-15); Aspartate Aminotransferase 21 U/L (15-37); Blood Urea Nitrogen 27 mg/dL (7-18); Calcium 9.5 mg/dL (8.5-10.1); Carbon Dioxide 36.4 meq/L (21.0-32.0); Chloride 93 meq/L (98-107); Glomerular Filtration Rate 79 mL/min (>89); Glucose,Random 138 mg/dL (74-106); Magnesium 1.8 mg/dL (1.5-2.5); Potassium 3.3 meq/L (3.5-5.1); Sodium 138 meq/L (136-145)
[2018-02-02 16:19] LABS: Alanine Aminotransferase 21 U/L (12-78); Phosphorus 4.1 mg/dL (2.5-4.9)
[2018-02-02 16:21] LABS: Alkaline Phosphatase 104 U/L (45-117); Total Protein 7.2 g/dL (6.4-8.2)
[2018-02-02] MEDS ORDERED: Senna/Docusate Sodium 8.6/50 MG Tablet PO PRN (16:35)
[2018-02-02] MEDS ORDERED: Acetaminophen 325 MG Tablet PO PRN (16:35)
[2018-02-02] MEDS ORDERED: Docusate Sodium 100 MG Capsule PO PRN (16:35)
[2018-02-02] MEDS ORDERED: Aluminum/Magnesium/Simethacone Susp 30 ML UDC PO PRN (16:35)
[2018-02-03] MEDS: Heparin - SQ 10,000 UNITS/ML Vial SQ SCH ×3 (05:46→22:02)
[2018-02-03] MEDS: Lisinopril 10 MG Tablet PO SCH (09:24)
[2018-02-03] MEDS: metOLazone 5 MG Tablet PO SCH (09:25)
--- NOTE | 2018-02-03 09:37 | P.PNIM ---
Subjective Interval history: 62-year-old male with past medical history significant for CHF (patient reports his last EF was 30%) and hypertension presents to the emergency department for the evaluation of lower extremity edema and shortness of breath. The patient reports that for the last 5 or 6 days he has had increasing lower extremity edema, weakness and shortness of breath that is worse with exertion and lying flat. 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 He reports that he is on a water pill but does not know what kind. He also states that he takes an antihypertensive medication but he does not know what kind. He denies any chest pain. No abdominal pain. No nausea/vomiting/diarrhea. No fever/ chills. No lateralizing signs/symptoms. 8-10 WILL CONTINUE TO DIURESE STILL VERY SWOLLEN BL LE HAS BLISTERS ON LOWER EXTREMITY FROM EXTRA FLUID 8-11 HAS BEEN ATTEMPTING TO GO OUTSIDE TO SMOKE STATES BL LE SWELLING NOT IMPROVED ENOUGH YET MADI RN AND PT ADJUST MEDS Add Zaroxolyn 5 mg p.o. daily Increase lisinopril to 10 mg p.o. daily Continue on Lasix and diuresis A.m. labs 8-12 STATES HE IS PEEING BETTER LESS SWELLING BL LE AWAIT AM LABS CONTINUE TO DIURESE. 8-13 PATIENT IS SCHEDULED TO GO FOR CARDIAC CATH NOW TOMORROW MADI RN AND PT LESS SWELLING IN BL LE AWAIT AM LABS CONTINUE TO DIURESE CARDIAC CATH TOMORROW AM LABS Physical Exam Vital signs: Vital Signs 02/02/18 11:46 02/02/18 12:00 02/02/18 16:00 Temperature 98.5 F 98.8 F Pulse Rate 62 58 L 70 Respiratory Rate 16 16 Blood Pressure 125/72 115/66 Pulse Oximetry 92 L 02/02/18 20:00 02/02/18 21:45 Temperature Pulse Rate 66 68 Respiratory Rate 15 Blood Pressure 117/71 Pulse Oximetry Intake & Output 02/02/18 02/03/18 02/03/18 18:59 06:59 18:59 Output Total 2800 / 2800 Balance -2800 / -2800 Weight 121.5 kg Output: Urine 2800 / 2800 Other: Date of Last Bowel Movement 02/02/18 # Bowel Movements 1 Narrative: Gen.: Moderate distress. Patient sitting up in bed with accessory muscle use to breathe. Head: Normocephalic. Atraumatic. EENT: Pupils equal round and reactive to light. Nose without drainage. Airway intact. Throat without injection. Cardiovascular: Regular rate and rhythm. No murmurs, rubs or gallops. Respiratory: Bilateral crackles. Use of accessory muscles. Abdomen: Soft, nontender, positive abdominal distention. No peritoneal signs. Umbilical hernia that is easily reducible. Musculoskeletal: No gross deformities. Bilateral 1 TO 2+ lower extremity pitting edema. Skin: No obvious rashes. Chronic skin changes on bilateral lower extremities. Neuro: Sensory and motor grossly intact. Cranial nerves II through XII grossly intact. Psych: Appropriate mood and affect Results - Labs CBC & Chem 7: 02/03/18 10:40 02/03/18 10:40 Laboratory Results - last 24 hr 02/02/18 02/02/18 02/02/18 14:15 14:15 14:15 WBC 7.7 RBC 5.82 Hgb 18.3 H Hct 54.7 H MCV 94.1 MCH 31.5 MCHC 33.4 RDW 14.8 Plt Count 160 MPV 9.5 Neut % (Auto) 73.9 H Lymph % (Auto) 16.2 [place] % (Auto) 7.7 Eos % (Auto) 1.7 Baso % (Auto) 0.5 Neut # (Auto) 5.7 Lymph # (Auto) 1.2 [place] # (Auto) 0.6 Eos # (Auto) 0.1 Baso # (Auto) 0.0 WBC Differential . Differential Comment Auto diff final Sodium 138 Potassium 3.3 L Chloride 93 L Carbon Dioxide 36.4 H Anion Gap 9 BUN 27 H Creatinine 0.97 Estimated GFR 79 L Random Glucose 138 H Calcium 9.5 Phosphorus 4.1 Magnesium 1.8 Total Bilirubin 1.4 H AST 21 ALT 21 Alkaline Phosphatase 104 B-Natriuretic Peptide 645 H Total Protein 7.2 Albumin 3.4 - Procedures NONE Assessment and Plan - Plan 1. CHF exacerbation Supplemental oxygen as needed Echo pending IV Lasix Coreg Cardiology consulted, appreciate recommendations LISINOPRIL ADDED BY CARDIOLOGY WILL ADD Zaroxolyn 5 mg p.o. daily Increase lisinopril to 10 mg p.o. daily 2. Hypertension Patient does not know what his antihypertensive medication is Coreg as above Adjust as needed ON COREG AND LISINOPRIL LASIX 3 CARDIOMYOPATHY CONTINUE TO DIURESES AM LABS Dyslipidemia will start on Pravachol 40 mg p.o. daily MALIGNANT MEDICAL NONCOMPLIANCE TOBACCO ABUSE--SMOKING CESSATION RECOMMENDED- STILL WANTS TO GO OUTSIDE TO SMOKE AM LABS FEN Cardiac diet Electrolytes: Monitor and replete as needed Heparin TO GO FOR CARDIAC CATH ON 02-04 Code Status: FULL CODE Discussed Condition With: RN AND PT Discharge Planning: WHEN AT CLOSE TO DRY WEIGHT AND CLEARED BY CARDIOLOGY
[2018-02-03 10:58] LABS: Baso % (Auto) 0.6 % (0.0-2.0); Eos # (Auto) 0.2 th/mm3 (0.0-0.4); Eos % (Auto) 1.9 % (0.0-4.0); Hematocrit 56.6 % (39.0-51.0); Hemoglobin 19.3 gm/dL (13.0-17.0); Lymph # (Auto) 1.2 th/mm3 (1.0-4.8); Lymph % (Auto) 14.2 % (9.0-44.0); Mean Corpuscular HGB Conc 34.1 % (32.0-36.0); Mean Corpuscular Hemoglobin 31.7 pg (27.0-34.0); Mean Corpuscular Volume 92.8 fL (80.0-100.0); Mean Platelet Volume 8.7 fL (7.0-11.0); Mono # (Auto) 0.8 th/mm3 (0.0-0.9); Mono % (Auto) 9.5 % (0.0-8.0); Neut # (Auto) 6.4 th/mm3 (1.8-7.7); Neut % (Auto) 73.8 % (16.0-70.0); Platelet Count 166 th/mm3 (150-450); Red Cell Distribution Width 14.6 % (11.6-17.2); White Blood Count 8.6 th/mm3 (4.0-11.0)
[2018-02-03 11:28] LABS: Albumin 3.6 g/dL (3.4-5.0); Anion Gap 9 meq/L (5-15); Aspartate Aminotransferase 21 U/L (15-37); Blood Urea Nitrogen 30 mg/dL (7-18); Carbon Dioxide 32.6 meq/L (21.0-32.0); Chloride 93 meq/L (98-107); Glomerular Filtration Rate 87 mL/min (>89); Glucose,Random 104 mg/dL (74-106); Magnesium 1.8 mg/dL (1.5-2.5); Potassium 3.8 meq/L (3.5-5.1); Sodium 135 meq/L (136-145)
[2018-02-03 11:29] LABS: Alanine Aminotransferase 23 U/L (12-78); Phosphorus 4.7 mg/dL (2.5-4.9)
[2018-02-03 11:31] LABS: Alkaline Phosphatase 107 U/L (45-117); Total Protein 7.7 g/dL (6.4-8.2)
--- NOTE | 2018-02-03 14:40 | P.PNCA ---
Subjective Interval history: c/o dyspnea Physical Exam Vital signs: Vital Signs 02/02/18 16:00 02/02/18 20:00 02/02/18 21:45 Temperature 98.8 F Pulse Rate 70 66 68 Respiratory Rate 16 15 Blood Pressure 115/66 117/71 Pulse Oximetry 02/03/18 08:00 02/03/18 12:00 Temperature 98.0 F Pulse Rate 60 64 Respiratory Rate 16 16 Blood Pressure 90/55 L Pulse Oximetry 93 L Intake & Output 02/02/18 02/03/18 02/03/18 18:59 06:59 18:59 Output Total 2800 / 2800 300 / 300 Balance -2800 / -2800 -300 / -300 Weight 121.5 kg Output: Urine 2800 / 2800 300 / 300 Other: Post Void Residual 200 # Voids 1 Date of Last Bowel Movement 02/02/18 02/02/18 # Bowel Movements 1 Assessment and Plan - Assessment (1) Cardiomyopathy Code(s): I42.9 - Cardiomyopathy, unspecified Status: Acute - Plan 1.) Cardiomyopathy - volume overload improving per bnp this am although patient perceives he is clinically worsening, f/u bnp in am, l schedule rhc and lhc , continue lisinopril 10 mg qd, coreg, lasix
[2018-02-03 20:37] LABS: ABG Base Excess 12.8 mmol/L (-2-2); ABG PCO2 50 mmHg (38-42); ABG PO2 65 mmHg (61-120)
[2018-02-04 02:40] LABS: % Iron Saturation 9.8 % (20-50); Calcium 9.7 mg/dL (8.5-10.1); Potassium 3.7 meq/L (3.5-5.1)
[2018-02-04] MEDS: Heparin - SQ 10,000 UNITS/ML Vial SQ SCH ×3 (06:10→21:45)
[2018-02-04] MEDS: metOLazone 5 MG Tablet PO SCH (09:16)
[2018-02-04] MEDS: Lisinopril 10 MG Tablet PO SCH (09:17)
--- NOTE | 2018-02-04 09:40 | MB ---
cc: Mouna Latham MD DATE: 02/03/2018 REASON FOR CONSULTATION: Consult requested by hospitalist for evaluation of polycythemia. HISTORY OF PRESENT ILLNESS: Ralph is a 62-year-old male. He has a history of heavy cigarette smoking. He does not have any local medical doctor. The patient came in to the hospital complaining of shortness of breath. He has a history of congestive heart failure. He states that when he moved down to [place] a few years ago, he had developed cardiomyopathy and his ejection fraction was only 30%. The patient is now admitted to the hospital for exacerbation of congestive heart failure. Cardiology has been consulted. The patient is scheduled to have a cardiac catheterization tomorrow. The patient's blood tests revealed polycythemia, and I have been asked to see him for that. The patient denies any previous history of polycythemia that he knows of. He continues to smoke cigarettes. He is in the ER and still he goes outside to smoke, but now he stated that he has a nicotine patch and he is trying to quit. The rest of the review of systems is negative. PAST MEDICAL HISTORY: Congestive heart failure, hypertension. PAST SURGICAL HISTORY: None. ALLERGIES: NONE. MEDICATIONS PRIOR TO COMING TO THE HOSPITAL: None. FAMILY HISTORY: Significant for leukemia. SOCIAL HISTORY: The patient smokes cigarettes, 1 pack a day for 6 years since age 15. He does not drink alcohol. PHYSICAL EXAMINATION: GENERAL: Reveals a well-developed, well-nourished white male, in no apparent distress. VITAL SIGNS: Stable, afebrile. HEAD, EYES, EARS, NOSE, AND THROAT: Pupils equal, round, reactive to light and accommodation, extraocular movements intact. Anicteric. No oral lesions noted. No thrush noted. NECK: Supple. No JVD. No masses noted. LUNGS: Clear. No wheezing, rhonchi, or rales. HEART: Regular rate and rhythm. No murmur heard. ABDOMEN: Soft and nontender. No hepatosplenomegaly. No abnormal bowel sounds. No guarding or rigidity noted. EXTREMITIES: Edema noted. NEUROLOGIC: Awake, alert, oriented x 3. Sensory and motor seem to be intact. SKIN: No bruises or petechiae noted. LYMPH NODES: No cervical, supraclavicular, or axillary lymphadenopathy noted. BACK: There is no spinal tenderness noted. ASSESSMENT: 1. Polycythemia. This is most likely to be secondary from cigarette smoking and/or some lung pathology. 2. Exacerbation of congestive heart failure. 3. Hypertension. PLAN: I have reviewed his available records, and I have discussed with the patient regarding the polycythemia. When he came to the hospital on 01/29/2018, CBC showed white count 9.2, hemoglobin 16.4, hematocrit was 50.3, platelets 137. The patient was given a diuretic and slowly his hematocrit is going up. Two days ago the hematocrit was 52, yesterday it was 54, and today it is 56. This is most likely due to some lung pathology, given that he has a history of heavy cigarette smoking. He has been advised to stop smoking cigarettes. I will order the JAK2 mutation, serum erythropoietin, B12, LDH, iron profile for further evaluation of the polycythemia. I will also get the ABG at room air. Will also get a CAT scan of the chest to evaluate for any underlying pulmonary pathology which could be causing secondary polycythemia. The patient is anxious to go home. He is scheduled to have a cardiac cath tomorrow, and if that does not show any significant coronary artery disease, then and most likely he will be discharged to home. If that happens, then he can come to our office for followup and will make further recommendations. Thank you for asking my opinion. MD CHRISTIANO Charlton/rosaline , 08:04 AM , 08:16 AM
--- NOTE | 2018-02-04 11:29 | P.PNIM ---
Subjective Interval history: 62-year-old male with past medical history significant for CHF (patient reports his last EF was 30%) and hypertension presents to the emergency department for the evaluation of lower extremity edema and shortness of breath. The patient reports that for the last 5 or 6 days he has had increasing lower extremity edema, weakness and shortness of breath that is worse with exertion and lying flat. 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 He reports that he is on a water pill but does not know what kind. He also states that he takes an antihypertensive medication but he does not know what kind. He denies any chest pain. No abdominal pain. No nausea/vomiting/diarrhea. No fever/ chills. No lateralizing signs/symptoms. 8-10 WILL CONTINUE TO DIURESE STILL VERY SWOLLEN BL LE HAS BLISTERS ON LOWER EXTREMITY FROM EXTRA FLUID 8-11 HAS BEEN ATTEMPTING TO GO OUTSIDE TO SMOKE STATES BL LE SWELLING NOT IMPROVED ENOUGH YET DW RN AND PT ADJUST MEDS Add Zaroxolyn 5 mg p.o. daily Increase lisinopril to 10 mg p.o. daily Continue on Lasix and diuresis A.m. labs 8-12 STATES HE IS PEEING BETTER LESS SWELLING BL LE AWAIT AM LABS CONTINUE TO DIURESE. 8-13 PATIENT IS SCHEDULED TO GO FOR CARDIAC CATH NOW TOMORROW DW RN AND PT LESS SWELLING IN BL LE AWAIT AM LABS CONTINUE TO DIURESE CARDIAC CATH TOMORROW AM LABS 8-14 PATIENT IS SCHEDULED FOR CARDIAC CATH LATER TODAY DW RN AND PT LESS BL LE EDEMA "I FEEL WEAK" AM LABS CONSULT PT AND OT SWITCH LASIX TO 40MG PO DAILY Physical Exam Vital signs: Vital Signs 02/03/18 12:00 02/03/18 15:06 02/03/18 15:23 Temperature 98.0 F 98.1 F 98.5 F Pulse Rate 138 H 70 106 H Respiratory Rate 16 16 20 Blood Pressure 90/55 L 98/53 L 141/93 H Pulse Oximetry 93 L 96 02/03/18 20:00 02/04/18 00:00 02/04/18 04:00 Temperature 98.3 F 98 F Pulse Rate 77 112 H 73 Respiratory Rate 18 20 Blood Pressure 117/57 L 105/65 Pulse Oximetry 95 94 L 02/04/18 08:00 02/04/18 08:12 08/14/18 09:09 Temperature 99.1 F 98.3 F Pulse Rate 100 H 74 75 Respiratory Rate 20 18 Blood Pressure 118/60 98/56 L Pulse Oximetry 99 92 L Intake & Output 02/03/18 02/04/18 02/04/18 18:59 06:59 18:59 Output Total 400 / 400 1300 / 1300 Balance -400 / -400 -1300 / -1300 Output: Urine 400 / 400 1300 / 1300 Other: Post Void Residual 200 # Voids 1 1 Date of Last Bowel Movement 02/02/18 Narrative: Gen.: Moderate distress. Patient sitting up in bed with accessory muscle use to breathe. Head: Normocephalic. Atraumatic. EENT: Pupils equal round and reactive to light. Nose without drainage. Airway intact. Throat without injection. Cardiovascular: Regular rate and rhythm. No murmurs, rubs or gallops. Respiratory: Bilateral crackles. Use of accessory muscles. Abdomen: Soft, nontender, positive abdominal distention. No peritoneal signs. Umbilical hernia that is easily reducible. Musculoskeletal: No gross deformities. Bilateral 1 TO 2+ lower extremity pitting edema. Skin: No obvious rashes. Chronic skin changes on bilateral lower extremities. Neuro: Sensory and motor grossly intact. Cranial nerves II through XII grossly intact. Psych: Appropriate mood and affect Results - Labs CBC & Chem 7: 02/03/18 10:40 02/04/18 01:47 Laboratory Results - last 24 hr 02/03/18 02/03/18 02/03/18 10:40 10:40 20:20 Puncture Site Left radial Patient Temperature 98.6 O2 Saturation 92 ABG pH 7.48 H ABG pCO2 50 H ABG pO2 65 ABG HCO3 37 H ABG O2 Content 24.1 H ABG Base Excess 12.8 H ABG Methemoglobin 0.5 Will Test Present Hemoglobin 18.8 H Carboxyhemoglobin 1.9 O2 Delivery Device Room air Inspired O2 21 Critical Value No Sodium 135 L Potassium 3.8 Chloride 93 L Carbon Dioxide 32.6 H Anion Gap 9 BUN 30 H Creatinine 0.89 Estimated GFR 87 L Random Glucose 104 Calcium 10.0 Phosphorus 4.7 Magnesium 1.8 Iron TIBC % Saturation Ferritin Total Bilirubin 1.4 H AST 21 ALT 23 Alkaline Phosphatase 107 Lactate Dehydrogenase B-Natriuretic Peptide 312 H Total Protein 7.7 Albumin 3.6 Vitamin B12 02/04/18 02/04/18 01:47 01:47 Puncture Site Patient Temperature O2 Saturation ABG pH ABG pCO2 ABG pO2 ABG HCO3 ABG O2 Content ABG Base Excess ABG Methemoglobin Will Test Hemoglobin Carboxyhemoglobin O2 Delivery Device Inspired O2 Critical Value Sodium 138 Potassium 3.7 Chloride 95 L Carbon Dioxide 37.0 H Anion Gap 6 BUN 51 H Creatinine 1.18 Estimated GFR 63 L Random Glucose 110 H Calcium 9.7 Phosphorus Magnesium Iron 42 L TIBC 430 % Saturation 9.8 L Ferritin 145 Total Bilirubin AST ALT Alkaline Phosphatase Lactate Dehydrogenase 142 B-Natriuretic Peptide 173 H Total Protein Albumin Vitamin B12 355 Assessment and Plan - Plan 1. CHF exacerbation Supplemental oxygen as needed Echo REVIEWED IV Lasix-- SWITCH TO 40MG PO DAILY Coreg Cardiology consulted, appreciate recommendations LISINOPRIL ADDED BY CARDIOLOGY WILL ADD Zaroxolyn 5 mg p.o. daily Increase lisinopril to 10 mg p.o. daily 2. Hypertension Patient does not know what his antihypertensive medication is Coreg as above Adjust as needed ON COREG AND LISINOPRIL LASIX 3 CARDIOMYOPATHY CONTINUE TO DIURESES AM LABS Dyslipidemia will start on Pravachol 40 mg p.o. daily MALIGNANT MEDICAL NONCOMPLIANCE TOBACCO ABUSE--SMOKING CESSATION RECOMMENDED- STILL WANTS TO GO OUTSIDE TO SMOKE AM LABS FEN Cardiac diet Electrolytes: Monitor and replete as needed Heparin TO GO FOR CARDIAC CATH ON 02-04 Code Status: FULL CODE Discussed Condition With: RN AND PT AND CM Discharge Planning: WHEN AT CLOSE TO DRY WEIGHT AND CLEARED BY CARDIOLOGY
--- NOTE | 2018-02-04 14:55 | P.PNONC ---
Subjective Interval history: Patient walking around the room, in no acute distress. He is scheduled for heart catheterization today. He reports his breathing is "okay, I do not know why they are not giving me that his breathing treatment, the last time I was here they gave him to me every so many hours and this time I am only had one" Objective Vital Signs/Intake & Output: Vital Signs 02/03/18 15:06 02/03/18 15:23 02/03/18 20:00 Temperature 98.1 F 98.5 F 98.3 F Pulse Rate 70 106 H 77 Respiratory Rate 16 20 18 Blood Pressure 98/53 L 141/93 H 117/57 L Pulse Oximetry 96 95 02/04/18 00:00 02/04/18 04:00 02/04/18 08:00 Temperature 98 F 99.1 F Pulse Rate 112 H 73 100 H Respiratory Rate 20 20 Blood Pressure 105/65 118/60 Pulse Oximetry 94 L 99 02/04/18 08:12 02/04/18 09:09 02/04/18 12:00 Temperature 98.3 F 97.7 F Pulse Rate 74 75 76 Respiratory Rate 18 14 Blood Pressure 98/56 L 99/63 L Pulse Oximetry 92 L 93 L Intake & Output 02/03/18 02/04/18 02/04/18 18:59 06:59 18:59 Output Total 400 / 400 1300 / 1300 Balance -400 / -400 -1300 / -1300 Output: Urine 400 / 400 1300 / 1300 Other: Post Void Residual 200 # Voids 1 1 Date of Last Bowel Movement 02/02/18 Result Diagrams: 02/03/18 10:40 02/04/18 01:47 Laboratory Results: Laboratory Results - last 24 hr 02/03/18 02/04/18 02/04/18 20:20 01:47 01:47 Puncture Site Left radial Patient Temperature 98.6 O2 Saturation 92 ABG pH 7.48 H ABG pCO2 50 H ABG pO2 65 ABG HCO3 37 H ABG O2 Content 24.1 H ABG Base Excess 12.8 H ABG Methemoglobin 0.5 Will Test Present Hemoglobin 18.8 H Carboxyhemoglobin 1.9 O2 Delivery Device Room air Inspired O2 21 Critical Value No Sodium 138 Potassium 3.7 Chloride 95 L Carbon Dioxide 37.0 H Anion Gap 6 BUN 51 H Creatinine 1.18 Estimated GFR 63 L Random Glucose 110 H Calcium 9.7 Iron 42 L TIBC 430 % Saturation 9.8 L Ferritin 145 Lactate Dehydrogenase 142 B-Natriuretic Peptide 173 H Vitamin B12 355 Medications: Active Medications Generic Name Dose Route Start Last Admin Trade Name Marcelino PRN Reason Stop Dose Admin Acetaminophen 650 mg 02/02/18 16:35 02/02/18 17:13 Tylenol PO 650 mg Q4H PRN Administration Temp > 100.4 Carvedilol 3.125 mg 01/30/18 09:00 02/04/18 09:15 Coreg PO 3.125 mg BID HOLDEN Administration Heparin Sodium (Porcine) 5,000 units 01/30/18 06:00 02/04/18 06:10 Heparin Inj SQ 5,000 units Q8HR HOLDEN Administration Lisinopril 10 mg 02/02/18 09:00 02/04/18 09:17 Prinivil PO Not Given DAILY HOLDEN Metolazone 5 mg 02/01/18 10:30 02/04/18 09:16 Zaroxolyn PO 5 mg DAILY HOLDEN Administration Nicotine 1 patch 01/31/18 13:00 02/04/18 09:15 Habitrol 14 Mg Patch.24 Hr T-DERMAL Not Given DAILY HOLDEN Patch Removal 1 each 02/01/18 09:00 02/03/18 09:25 Remove Old Patch T-DERMAL Not Given DAILY HOLDEN Potassium Chloride 20 meq 02/02/18 21:00 02/04/18 09:15 K-Dur PO 20 meq BID HOLDEN Administration Pravastatin Sodium 40 mg 02/01/18 21:00 02/03/18 22:02 Pravachol PO 40 mg HS HOLDEN Administration Sodium Chloride 2 ml 01/30/18 09:00 02/04/18 09:15 Ns Flush IV.FLUSH 2 ml BID HOLDEN Administration Objective Remarks: GENERAL: Well-nourished, well-developed male patient, walking around room. SKIN: Warm and dry. HEAD: Normocephalic. EYES: No scleral icterus. No injection or drainage. NECK: Supple, trachea midline. CARDIOVASCULAR: Distant heart sounds. RESPIRATORY: Anterior expiratory wheezes. Posterior breath sounds diminished, equal bilaterally. No accessory muscle use. GASTROINTESTINAL: Abdomen soft, non-tender, nondistended. EXTREMITIES: No cyanosis, 1+ bilateral edema. MUSCULOSKELETAL: Adequate muscle tone. NEUROLOGICAL: No obvious focal deficit. Awake, alert, and oriented x3. PSYCHIATRIC: Appropriate mood and affect; insight and judgment normal. Assessment/Plan - Plan This is a pleasant 62-year-old gentleman, who presented to the hospital complaining of shortness of breath. He has a history of cardiomyopathy and his ejection fraction is 30%. He is currently admitted for an exacerbation of congestive heart failure. He is awaiting heart catheterization today. Hematology has been consulted for polycythemia. This is likely related to his heavy cigarette smoking. Plan: 1. Polycythemia, likely secondary to cigarette smoking. A CT chest was ordered , however the patient refused. 2. ABG: PH 7.48, pCO2 50, pO2 65, HCO3 37. 3. CHF exacerbation. Management per cardiology. 4. Continue supportive care. - Attending Statement The exam, history, and the medical decision-making described in the above note were completed with the assistance of the mid-level provider. I reviewed and agree with the findings presented. I attest that I had a [id number] encounter with the patient on the same day, and personally performed and documented my assessment and findings in the medical record. Decline CT chest. ABG result noted. Most likely secondary polycythemia
--- NOTE | 2018-02-04 15:28 | P.PNCA ---
Subjective Interval history: alert in nad Physical Exam Vital signs: Vital Signs 02/03/18 20:00 02/04/18 00:00 02/04/18 04:00 Temperature 98.3 F 98 F Pulse Rate 77 112 H 73 Respiratory Rate 18 20 Blood Pressure 117/57 L 105/65 Pulse Oximetry 95 94 L 02/04/18 08:00 02/04/18 08:12 02/04/18 09:09 Temperature 99.1 F 98.3 F Pulse Rate 100 H 74 75 Respiratory Rate 20 18 Blood Pressure 118/60 98/56 L Pulse Oximetry 99 92 L 02/04/18 12:00 Temperature 97.7 F Pulse Rate 76 Respiratory Rate 14 Blood Pressure 99/63 L Pulse Oximetry 93 L Intake & Output 02/03/18 02/04/18 02/04/18 18:59 06:59 18:59 Output Total 400 / 400 1300 / 1300 Balance -400 / -400 -1300 / -1300 Output: Urine 400 / 400 1300 / 1300 Other: Post Void Residual 200 # Voids 1 1 Date of Last Bowel Movement 02/02/18 Assessment and Plan - Assessment (1) Cardiomyopathy Code(s): I42.9 - Cardiomyopathy, unspecified Status: Acute - Plan 1.) Cardiomyopathy - volume overload improving per bnp this am, he is unable to lie at even head up 30 degrees, i explained i can not rule out life threatening coronary stenosis without cath, he understands and refuses and unable to perform cath if patient cant at least lie @ 30 degrees or lower head up, will continue lisinopril 10 mg qd, coreg, lasix
--- NOTE | 2018-02-04 15:38 | CATHPROC ---
[facility] HIS Report Study Information Study Number Admission Scheduled Start Study Start [id number] Feb 01 2018 2:50PM 02/04/2018 Feb 04 2018 2:57PM [place] Service Cath Endovascular Study Admit Source Facility Department Emergency department [facility] Physician and Clinical Staff Initial MD Lancaster, Yovani Textile Screen Printer Brooke Pacheco,NETTA Recorder Cally Palacios,RT(R) Scrub Ban Alcantara,RT(R) (BS) Equipment Time Injection Wax Molder Description Size Mfg Part Number Used/Scraped TRANSDUCER, TRUWAVE [id number] 15:01 JOSHI JI * Used W/STOCKCOCK *[id number] 15:01 Gizmo5 BLANKET,WARM AIR CCL * Used *[id number] 15:01 Gizmo5 PACK, CCL CUSTOM * Used *[id number] 15:01 VALOREM PACER PEN, SKIN DUAL W/ RULER * Used *[id number] 15:01 Grivy MEDICAL WIRE, 3MMJ .035 180CM 180CM Used *[id number] 15:01 NAMIC MANIFOLD, 4 PORT * Used *[id number] 15:01 NYCOMED OMNIPAQUE, 350 MG, 150ML 150ML [id number] 15:01 TERUMO MEDICAL SHEATH, FR4 TERUMO (10CM) FR 4 Used *[id number] Chronological Log Time Study Chronological Log 15:19:16 Patient Name, D.O.B, / Armband Verified By R.N. 15:19:19 Patient arrived via Bed. 15:26:21 Consent signed by the physician and the patient and verified by the [facility] staff. 15:27:10 Patient complained that he could not lay flat for heart cath. Dr Lancaster cancelled case. 15:27:59 Case Cancelled End Study - Patient Disposition Complications Not selected
[2018-02-05] MEDS: Heparin - SQ 10,000 UNITS/ML Vial SQ SCH (06:28)
[2018-02-05 08:04] LABS: Baso % (Auto) 0.6 % (0.0-2.0); Eos # (Auto) 0.2 th/mm3 (0.0-0.4); Eos % (Auto) 2.2 % (0.0-4.0); Hematocrit 55.5 % (39.0-51.0); Hemoglobin 18.6 gm/dL (13.0-17.0); Lymph # (Auto) 1.6 th/mm3 (1.0-4.8); Lymph % (Auto) 20.7 % (9.0-44.0); Mean Corpuscular HGB Conc 33.5 % (32.0-36.0); Mean Corpuscular Hemoglobin 31.4 pg (27.0-34.0); Mean Corpuscular Volume 93.7 fL (80.0-100.0); Mean Platelet Volume 8.7 fL (7.0-11.0); Mono # (Auto) 0.9 th/mm3 (0.0-0.9); Mono % (Auto) 12.1 % (0.0-8.0); Neut # (Auto) 4.9 th/mm3 (1.8-7.7); Neut % (Auto) 64.4 % (16.0-70.0); Platelet Count 184 th/mm3 (150-450); Red Blood Count 5.92 mil/mm3 (4.50-5.90); Red Cell Distribution Width 14.5 % (11.6-17.2); White Blood Count 7.7 th/mm3 (4.0-11.0)
[2018-02-05 08:40] LABS: Alanine Aminotransferase 39 U/L (12-78); Albumin 3.5 g/dL (3.4-5.0); Alkaline Phosphatase 105 U/L (45-117); Anion Gap 8 meq/L (5-15); Aspartate Aminotransferase 37 U/L (15-37); Blood Urea Nitrogen 49 mg/dL (7-18); Carbon Dioxide 34.9 meq/L (21.0-32.0); Chloride 95 meq/L (98-107); Glomerular Filtration Rate 68 mL/min (>89); Glucose,Random 111 mg/dL (74-106); Magnesium 2.4 mg/dL (1.5-2.5); Phosphorus 3.6 mg/dL (2.5-4.9); Potassium 3.8 meq/L (3.5-5.1); Sodium 138 meq/L (136-145); Total Protein 7.5 g/dL (6.4-8.2)
[2018-02-05] MEDS: metOLazone 5 MG Tablet PO SCH (08:52)
[2018-02-05] MEDS ORDERED: Furosemide 40 MG Tablet PO SCH (09:00)
--- NOTE | 2018-02-05 11:13 | P.PNIM ---
Subjective Interval history: 62-year-old male with past medical history significant for CHF (patient reports his last EF was 30%) and hypertension presents to the emergency department for the evaluation of lower extremity edema and shortness of breath. The patient reports that for the last 5 or 6 days he has had increasing lower extremity edema, weakness and shortness of breath that is worse with exertion and lying flat. 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 He reports that he is on a water pill but does not know what kind. He also states that he takes an antihypertensive medication but he does not know what kind. He denies any chest pain. No abdominal pain. No nausea/vomiting/diarrhea. No fever/ chills. No lateralizing signs/symptoms. 8-10 WILL CONTINUE TO DIURESE STILL VERY SWOLLEN BL LE HAS BLISTERS ON LOWER EXTREMITY FROM EXTRA FLUID 8-11 HAS BEEN ATTEMPTING TO GO OUTSIDE TO SMOKE STATES BL LE SWELLING NOT IMPROVED ENOUGH YET DW RN AND PT ADJUST MEDS Add Zaroxolyn 5 mg p.o. daily Increase lisinopril to 10 mg p.o. daily Continue on Lasix and diuresis A.m. labs 8-12 STATES HE IS PEEING BETTER LESS SWELLING BL LE AWAIT AM LABS CONTINUE TO DIURESE. 8-13 PATIENT IS SCHEDULED TO GO FOR CARDIAC CATH NOW TOMORROW DW RN AND PT LESS SWELLING IN BL LE AWAIT AM LABS CONTINUE TO DIURESE CARDIAC CATH TOMORROW AM LABS 8-14 PATIENT IS SCHEDULED FOR CARDIAC CATH LATER TODAY DW RN AND PT LESS BL LE EDEMA "I FEEL WEAK" AM LABS CONSULT PT AND OT SWITCH LASIX TO 40MG PO DAILY 8-15 CLEARED BY CARDIOLOGY DC TO HOME TODAY NEEDS TO TAKE HIS MEDICATIONS AND STOP SMOKING FOLLOW UP WITH [facility] SEE RX DC TO HOME REFUSED TO LAY FLAT FOR CARDIAC CATH Physical Exam Vital signs: Vital Signs 02/04/18 12:00 02/04/18 16:00 02/04/18 20:00 Temperature 97.7 F 98.6 F 98.1 F Pulse Rate 76 73 75 Respiratory Rate 14 16 20 Blood Pressure 99/63 L 112/54 L 94/51 L Pulse Oximetry 93 L 92 L 93 L 02/04/18 23:33 02/05/18 00:00 02/05/18 03:51 Temperature 98.2 F 98.3 F Pulse Rate 75 72 76 Respiratory Rate 19 19 Blood Pressure 102/65 119/73 Pulse Oximetry 95 94 L 02/05/18 04:00 02/05/18 07:50 02/05/18 08:00 Temperature 98.8 F Pulse Rate 74 71 75 Respiratory Rate 18 Blood Pressure 116/76 Pulse Oximetry 93 L Intake & Output 02/04/18 02/05/18 02/05/18 18:59 06:59 18:59 Output Total 1300 / 1300 700 / 700 Balance -1300 / -1300 -700 / -700 Output: Urine 1300 / 1300 700 / 700 Other: # Voids 1 Narrative: Gen.: Moderate distress. Patient sitting up in bed with accessory muscle use to breathe. Head: Normocephalic. Atraumatic. EENT: Pupils equal round and reactive to light. Nose without drainage. Airway intact. Throat without injection. Cardiovascular: Regular rate and rhythm. No murmurs, rubs or gallops. Respiratory: Bilateral crackles. Use of accessory muscles. Abdomen: Soft, nontender, positive abdominal distention. No peritoneal signs. Umbilical hernia that is easily reducible. Musculoskeletal: No gross deformities. Bilateral TRACE EDEMA. Skin: No obvious rashes. Chronic skin changes on bilateral lower extremities. Neuro: Sensory and motor grossly intact. Cranial nerves II through XII grossly intact. Psych: Appropriate mood and affect Results - Labs CBC & Chem 7: 02/05/18 07:29 02/05/18 07:29 Laboratory Results - last 24 hr 02/05/18 02/05/18 02/05/18 07:29 07:29 07:29 WBC 7.7 RBC 5.92 H Hgb 18.6 H Hct 55.5 H MCV 93.7 MCH 31.4 MCHC 33.5 RDW 14.5 Plt Count 184 MPV 8.7 Neut % (Auto) 64.4 Lymph % (Auto) 20.7 Floyd % (Auto) 12.1 H Eos % (Auto) 2.2 Baso % (Auto) 0.6 Neut # (Auto) 4.9 Lymph # (Auto) 1.6 Floyd # (Auto) 0.9 Eos # (Auto) 0.2 Baso # (Auto) 0.0 WBC Differential . Differential Comment Auto diff final Sodium 138 Potassium 3.8 Chloride 95 L Carbon Dioxide 34.9 H Anion Gap 8 BUN 49 H Creatinine 1.11 Estimated GFR 68 L Random Glucose 111 H Calcium 9.0 Phosphorus 3.6 D Magnesium 2.4 D Total Bilirubin 0.9 AST 37 ALT 39 Alkaline Phosphatase 105 B-Natriuretic Peptide 87 Total Protein 7.5 Albumin 3.5 - Imaging Chest X-Ray 01/29/18 21:23 CONCLUSION: No evidence of acute cardiopulmonary disease. - Procedures NONE- REFUSED CARDIAC CATHETERIZATION Assessment and Plan - Plan 1. CHF exacerbation Supplemental oxygen as needed Echo REVIEWED IV Lasix-- SWITCH TO 40MG PO DAILY Coreg Cardiology consulted, appreciate recommendations LISINOPRIL ADDED BY CARDIOLOGY WILL ADD Zaroxolyn 5 mg p.o. daily Increase lisinopril to 10 mg p.o. daily 2. Hypertension Patient does not know what his antihypertensive medication is Coreg as above Adjust as needed ON COREG AND LISINOPRIL LASIX 3 CARDIOMYOPATHY CONTINUE TO DIURESES AM LABS Dyslipidemia will start on Pravachol 40 mg p.o. daily MALIGNANT MEDICAL NONCOMPLIANCE TOBACCO ABUSE--SMOKING CESSATION RECOMMENDED- STILL WANTS TO GO OUTSIDE TO SMOKE AM LABS FEN Cardiac diet Electrolytes: Monitor and replete as needed Heparin TO GO FOR CARDIAC CATH ON 02-04--REFUSED CARDIAC CATH DC TO HOME Follow [facility] Code Status: Full code Discussed Condition With: RN and patient and director of casework Discharge Planning: Discharge to home today
[2018-02-05] MEDS: Lisinopril 10 MG Tablet PO SCH (11:16)
--- NOTE | 2018-02-05 11:21 | P.DS ---
Date of admission: 02/01/18 14:50 Primary care physician: No Primary Care Physician Attending physician on discharge: Cosme Mckniley Anticipated date of discharge: 02/05/18 Brief History from admission: 62-year-old male with past medical history significant for CHF (patient reports his last EF was 30%) and hypertension presents to the emergency department for the evaluation of lower extremity edema and shortness of breath. The patient reports that for the last 5 or 6 days he has had increasing lower extremity edema, weakness and shortness of breath that is worse with exertion and lying flat. He does not have a primary care physician or a reamer hand. He reports that he is on a water pill but does not know what kind. He also states that he takes an antihypertensive medication but he does not know what kind. He denies any chest pain. No abdominal pain. No nausea/vomiting/diarrhea. No fever/ chills. No lateralizing signs/symptoms. DS: Diagnosis - Discharge Diagnosis (1) COPD (chronic obstructive pulmonary disease) Status: Chronic (2) Tobacco abuse Status: Chronic (3) Polycythemia vera Status: Chronic (4) Noncompliance Status: Chronic (5) Cardiomyopathy Status: Chronic (6) Congestive heart failure (CHF) Status: Acute DS: Medications - Discharge Medications Prescriptions: aspirin 81 mg PO DAILY #30 tab carvedilol [Coreg] 3.125 mg PO BID #60 tab famotidine [Pepcid] 20 mg PO DAILY #30 tab furosemide 40 mg PO DAILY #30 tab lisinopril 10 mg PO DAILY #30 tab metolazone 5 mg PO DAILY #30 tab nicotine 1 patch TRANSDERMAL DAILY #30 ea potassium chloride 20 meq PO BID #60 tab pravastatin 40 mg PO HS #30 tab sennosides-docusate sodium [Senna Plus] 2 tab PO BID PRN #120 tab PRN Reason: Constipation DS: Summary Hospital Course: 62-year-old male with past medical history significant for CHF (patient reports his last EF was 30%) and hypertension presents to the emergency department for the evaluation of lower extremity edema and shortness of breath. The patient reports that for the last 5 or 6 days he has had increasing lower extremity edema, weakness and shortness of breath that is worse with exertion and lying flat. He does not have a primary care physician or a reamer hand. He reports that he is on a water pill but does not know what kind. He also states that he takes an antihypertensive medication but he does not know what kind. He denies any chest pain. No abdominal pain. No nausea/vomiting/diarrhea. No fever/ chills. No lateralizing signs/symptoms. 8-10 WILL CONTINUE TO DIURESE STILL VERY SWOLLEN BL LE HAS BLISTERS ON LOWER EXTREMITY FROM EXTRA FLUID 8-11 HAS BEEN ATTEMPTING TO GO OUTSIDE TO SMOKE STATES BL LE SWELLING NOT IMPROVED ENOUGH YET DW RN AND PT ADJUST MEDS Add Zaroxolyn 5 mg p.o. daily Increase lisinopril to 10 mg p.o. daily Continue on Lasix and diuresis A.m. labs 8-12 STATES HE IS PEEING BETTER LESS SWELLING BL LE AWAIT AM LABS CONTINUE TO DIURESE. 8-13 PATIENT IS SCHEDULED TO GO FOR CARDIAC CATH NOW TOMORROW DW RN AND PT LESS SWELLING IN BL LE AWAIT AM LABS CONTINUE TO DIURESE CARDIAC CATH TOMORROW AM LABS 8-14 PATIENT IS SCHEDULED FOR CARDIAC CATH LATER TODAY DW RN AND PT LESS BL LE EDEMA "I FEEL WEAK" AM LABS CONSULT PT AND OT SWITCH LASIX TO 40MG PO DAILY 8-15 CLEARED BY CARDIOLOGY DC TO HOME TODAY NEEDS TO TAKE HIS MEDICATIONS AND STOP SMOKING FOLLOW UP WITH [facility] SEE RX DC TO HOME REFUSED TO LAY FLAT FOR CARDIAC CATH - Time Spent with Patient Total time spent providing and/or coordinating discharge services: Greater than 30 minutes - Quality: VTE Deep Vein Thrombosis/Pulmonary Embolism Present on Admission: No Exam Vital signs: Vital Signs 02/04/18 12:00 02/04/18 16:00 02/04/18 20:00 Temperature 97.7 F 98.6 F 98.1 F Pulse Rate 76 73 75 Respiratory Rate 14 16 20 Blood Pressure 99/63 L 112/54 L 94/51 L Pulse Oximetry 93 L 92 L 93 L 02/04/18 23:33 02/05/18 00:00 02/05/18 03:51 Temperature 98.2 F 98.3 F Pulse Rate 75 72 76 Respiratory Rate 19 19 Blood Pressure 102/65 119/73 Pulse Oximetry 95 94 L 02/05/18 04:00 02/05/18 07:50 02/05/18 08:00 Temperature 98.8 F Pulse Rate 74 71 75 Respiratory Rate 18 Blood Pressure 116/76 Pulse Oximetry 93 L Intake & Output 02/04/18 02/05/18 02/05/18 18:59 06:59 18:59 Output Total 1300 / 1300 700 / 700 Balance -1300 / -1300 -700 / -700 Output: Urine 1300 / 1300 700 / 700 Other: # Voids 1 Narrative: Gen.: Moderate distress. Patient sitting up in bed with accessory muscle use to breathe. Head: Normocephalic. Atraumatic. EENT: Pupils equal round and reactive to light. Nose without drainage. Airway intact. Throat without injection. Cardiovascular: Regular rate and rhythm. No murmurs, rubs or gallops. Respiratory: Bilateral crackles. Use of accessory muscles. Abdomen: Soft, nontender, positive abdominal distention. No peritoneal signs. Umbilical hernia that is easily reducible. Musculoskeletal: No gross deformities. Bilateral TRACE EDEMA. Skin: No obvious rashes. Chronic skin changes on bilateral lower extremities. Neuro: Sensory and motor grossly intact. Cranial nerves II through XII grossly intact. Psych: Appropriate mood and affect Results Procedures completed during hospitalization: NONE- REFUSED CARDIAC CATHETERIZATION Completed studies during hospitalization: Laboratory Results WBC 7.7 th/mm3 (4.0-11.0) 02/05/18 07:29 RBC 5.92 mil/mm3 (4.50-5.90) H 02/05/18 07:29 Hgb 18.6 gm/dL (13.0-17.0) H 02/05/18 07:29 Hct 55.5 % (39.0-51.0) H 02/05/18 07:29 MCV 93.7 fL (80.0-100.0) 02/05/18 07:29 MCH 31.4 pg (27.0-34.0) 02/05/18 07:29 MCHC 33.5 % (32.0-36.0) 02/05/18 07:29 RDW 14.5 % (11.6-17.2) 02/05/18 07:29 Plt Count 184 th/mm3 (150-450) 02/05/18 07:29 MPV 8.7 fL (7.0-11.0) 02/05/18 07:29 Neut % (Auto) 64.4 % (16.0-70.0) 02/05/18 07:29 Lymph % (Auto) 20.7 % (9.0-44.0) 02/05/18 07:29 [place] % (Auto) 12.1 % (0.0-8.0) H 02/05/18 07:29 Eos % (Auto) 2.2 % (0.0-4.0) 02/05/18 07:29 Baso % (Auto) 0.6 % (0.0-2.0) 02/05/18 07:29 Neut # (Auto) 4.9 th/mm3 (1.8-7.7) 02/05/18 07: Lymph # (Auto) 1.6 th/mm3 (1.0-4.8) 02/05/18 07: [place] # (Auto) 0.9 th/mm3 (0.0-0.9) 02/05/18 07: Eos # (Auto) 0.2 th/mm3 (0.0-0.4) 02/05/18 07: Baso # (Auto) 0.0 th/mm3 (0.0-0.2) 02/05/18 07:29 WBC Differential . 02/05/18 07:29 Differential Comment Auto diff final 02/05/18 07:29 PT 11.5 sec (9.8-11.6) 02/01/18 08:59 INR 1.1 Ratio 02/01/18 08:59 APTT 25.3 sec (24.3-30.1) 01/29/18 21:45 Puncture Site Left radial 02/03/18 20:20 Patient Temperature 98.6 02/03/18 20:20 O2 Saturation 92 % (90-100) 02/03/18 20:20 ABG pH 7.48 (7.380-7.420) H 02/03/18 20:20 ABG pCO2 50 mmHg (38-42) H 02/03/18 20:20 ABG pO2 65 mmHg (61-120) 02/03/18 20:20 ABG HCO3 37 mmol/L (22-26) H 02/03/18 20:20 ABG O2 Content 24.1 Vol % (12.0-20.0) H 02/03/18 20:20 ABG Base Excess 12.8 mmol/L (-2-2) H 02/03/18 20:20 ABG Methemoglobin 0.5 % (0-2) 02/03/18 20:20 Will Test Present 02/03/18 20:20 Hemoglobin 18.8 G/DL (12.0-16.0) H 02/03/18 20:20 Carboxyhemoglobin 1.9 % (0-4) 02/03/18 20:20 O2 Delivery Device Room air 02/03/18 20:20 Inspired O2 21 % 02/03/18 20:20 Critical Value No 02/03/18 20:20 Sodium 138 meq/L (136-145) 02/05/18 07:29 Potassium 3.8 meq/L (3.5-5.1) 02/05/18 07:29 Chloride 95 meq/L (98-107) L 02/05/18 07:29 Carbon Dioxide 34.9 meq/L (21.0-32.0) H 02/05/18 07:29 Anion Gap 8 meq/L (5-15) 02/05/18 07:29 BUN 49 mg/dL (7-18) H 02/05/18 07:29 Creatinine 1.11 mg/dL (0.60-1.30) 02/05/18 07:29 Estimated GFR 68 mL/min (>89) L 02/05/18 07:29 Random Glucose 111 mg/dL (74-106) H 02/05/18 07:29 Hemoglobin A1c 5.3 % (4.3-6.0) 02/01/18 08:59 Calcium 9.0 mg/dL (8.5-10.1) 02/05/18 07:29 Phosphorus 3.6 mg/dL (2.5-4.9) D 02/05/18 07:29 Magnesium 2.4 mg/dL (1.5-2.5) D 02/05/18 07:29 Iron 42 mcg/dL (65-175) L 02/04/18 01:47 TIBC 430 mcg/dL (250-450) 02/04/18 01:47 % Saturation 9.8 % (20-50) L 02/04/18 01:47 Ferritin 145 ng/mL (26-388) 02/04/18 01:47 Total Bilirubin 0.9 mg/dL (0.2-1.0) 02/05/18 07:29 AST 37 U/L (15-37) 02/05/18 07:29 ALT 39 U/L (12-78) 02/05/18 07:29 Alkaline Phosphatase 105 U/L (45-117) 02/05/18 07:29 Lactate Dehydrogenase 142 U/L (87-241) 02/04/18 01:47 Total Creatine Kinase 52 U/L (39-308) 01/29/18 21:45 Troponin I Less than 0.02 ng/mL (0.02-0.05) L 01/31/18 09:07 B-Natriuretic Peptide 87 pg/mL (0-100) 02/05/18 07:29 Total Protein 7.5 g/dL (6.4-8.2) 02/05/18 07:29 Albumin 3.5 g/dL (3.4-5.0) 02/05/18 07:29 Triglycerides 178 mg/dL (42-150) H 02/01/18 08:59 Cholesterol 160 mg/dL (120-200) 02/01/18 08:59 LDL Cholesterol, Calc 86 mg/dL (0-99) 02/01/18 08:59 HDL Cholesterol 38.3 mg/dL (40.0-60.0) L 02/01/18 08:59 Cholesterol/HDL Ratio 4.17 Ratio 02/01/18 08:59 Vitamin B12 355 pg/mL (193-986) 02/04/18 01:47 TSH 1.060 uIU/mL (0.358-3.740) 02/01/18 08:59 Free T4 1.11 ng/dL (0.76-1.46) 02/01/18 08:59 Impressions Chest X-Ray 01/29/18 21:23 CONCLUSION: No evidence of acute cardiopulmonary disease. Labs on day of discharge: Labs from last 24 hours 02/05/18 02/05/18 02/05/18 07:29 07:29 07:29 WBC RBC Hgb Hct MCV MCH MCHC RDW Plt Count MPV Neut % (Auto) Lymph % (Auto) [place] % (Auto) Eos % (Auto) Baso % (Auto) Neut # (Auto) Lymph # (Auto) [place] # (Auto) Eos # (Auto) Baso # (Auto) WBC Differential Differential Comment Sodium 138 Potassium 3.8 Chloride 95 L Carbon Dioxide 34.9 H Anion Gap 8 BUN 49 H Creatinine 1.11 Estimated GFR 68 L Random Glucose 111 H Calcium 9.0 Phosphorus 3.6 D Magnesium 2.4 D Total Bilirubin 0.9 AST 37 ALT 39 Alkaline Phosphatase 105 B-Natriuretic Peptide 87 Total Protein 7.5 Albumin 3.5 JAK2 Mutation (PCR) Pending 02/05/18 07:29 WBC 7.7 RBC 5.92 H Hgb 18.6 H Hct 55.5 H MCV 93.7 MCH 31.4 MCHC 33.5 RDW 14.5 Plt Count 184 MPV 8.7 Neut % (Auto) 64.4 Lymph % (Auto) 20.7 [place] % (Auto) 12.1 H Eos % (Auto) 2.2 Baso % (Auto) 0.6 Neut # (Auto) 4.9 Lymph # (Auto) 1.6 [place] # (Auto) 0.9 Eos # (Auto) 0.2 Baso # (Auto) 0.0 WBC Differential . Differential Comment Auto diff final Sodium Potassium Chloride Carbon Dioxide Anion Gap BUN Creatinine Estimated GFR Random Glucose Calcium Phosphorus Magnesium Total Bilirubin AST ALT Alkaline Phosphatase B-Natriuretic Peptide Total Protein Albumin JAK2 Mutation (PCR) - Impressions ITS Impressions Chest X-Ray 01/29/18 21:23 CONCLUSION: No evidence of acute cardiopulmonary disease. Discharge Plan - Discharge Disposition Patient Disposition: 01 Discharge Home - Discharge Condition Condition: Good - Discharge Order Discharge Orders: Discharge Order (Routine); Ordered 02/05/18 Ordered By: Cosme Mckinley - Discharge Details Anticipated Discharge Date: 02/05/18 Discharge Comment: DC TO HOME TODAY - Physicians Team Primary Care Provider: Primary Care Physici,No Attending Provider: Cosme Mckinley Other Providers: Yovani Lancaster MD ; Christine Latham MD
--- NOTE | 2018-02-05 15:08 | P.PNONC ---
Subjective Interval history: Afebrile Patient's breathing is reportedly improved Still feels weak Anxious to go home and take a shower Objective Vital Signs/Intake & Output: Vital Signs 02/04/18 16:00 02/04/18 20:00 02/04/18 23:33 Temperature 98.6 F 98.1 F 98.2 F Pulse Rate 73 75 75 Respiratory Rate 16 20 19 Blood Pressure 112/54 L 94/51 L 102/65 Pulse Oximetry 92 L 93 L 95 02/05/18 00:00 02/05/18 03:51 02/05/18 04:00 Temperature 98.3 F Pulse Rate 72 76 74 Respiratory Rate 19 Blood Pressure 119/73 Pulse Oximetry 94 L 02/05/18 07:50 02/05/18 08:00 02/05/18 12:00 Temperature 98.8 F 98.9 F Pulse Rate 71 75 73 Respiratory Rate 18 18 Blood Pressure 116/76 105/63 Pulse Oximetry 93 L 94 L 02/05/18 12:15 Temperature Pulse Rate 73 Respiratory Rate Blood Pressure Pulse Oximetry Intake & Output 02/04/18 02/05/18 02/05/18 18:59 06:59 18:59 Output Total 1300 / 1300 700 / 700 Balance -1300 / -1300 -700 / -700 Output: Urine 1300 / 1300 700 / 700 Other: # Voids 1 Result Diagrams: 02/05/18 07:29 02/05/18 07:29 Laboratory Results: Laboratory Results - last 24 hr 02/05/18 02/05/18 02/05/18 07:29 07:29 07:29 WBC 7.7 RBC 5.92 H Hgb 18.6 H Hct 55.5 H MCV 93.7 MCH 31.4 MCHC 33.5 RDW 14.5 Plt Count 184 MPV 8.7 Neut % (Auto) 64.4 Lymph % (Auto) 20.7 [place] % (Auto) 12.1 H Eos % (Auto) 2.2 Baso % (Auto) 0.6 Neut # (Auto) 4.9 Lymph # (Auto) 1.6 [place] # (Auto) 0.9 Eos # (Auto) 0.2 Baso # (Auto) 0.0 WBC Differential . Differential Comment Auto diff final Sodium 138 Potassium 3.8 Chloride 95 L Carbon Dioxide 34.9 H Anion Gap 8 BUN 49 H Creatinine 1.11 Estimated GFR 68 L Random Glucose 111 H Calcium 9.0 Phosphorus 3.6 D Magnesium 2.4 D Total Bilirubin 0.9 AST 37 ALT 39 Alkaline Phosphatase 105 B-Natriuretic Peptide 87 Total Protein 7.5 Albumin 3.5 Medications: Active Medications Generic Name Dose Route Start Last Admin Trade Name Freq PRN Reason Stop Dose Admin Acetaminophen 650 mg 02/02/18 16:35 02/02/18 17:13 Tylenol PO 650 mg Q4H PRN Administration Temp > 100.4 Carvedilol 3.125 mg 01/30/18 09:00 02/05/18 08:51 Coreg PO 3.125 mg BID HOLDEN Administration Furosemide 40 mg 02/05/18 09:00 02/05/18 08:51 Lasix PO 40 mg DAILY HOLDEN Administration Heparin Sodium (Porcine) 5,000 units 01/30/18 06:00 02/05/18 06:28 Heparin Inj SQ 5,000 units Q8HR HOLDEN Administration Lisinopril 10 mg 02/02/18 09:00 02/05/18 11:16 Prinivil PO Not Given DAILY HOLDEN Metolazone 5 mg 02/01/18 10:30 02/05/18 08:52 Zaroxolyn PO 5 mg DAILY HOLDEN Administration Nicotine 1 patch 01/31/18 13:00 02/05/18 08:52 Habitrol 14 Mg Patch.24 Hr T-DERMAL Not Given DAILY HOLDEN Patch Removal 1 each 02/01/18 09:00 02/05/18 11:16 Remove Old Patch T-DERMAL Not Given DAILY HOLDEN Potassium Chloride 20 meq 02/02/18 21:00 02/05/18 08:51 K-Dur PO 20 meq BID HOLDEN Administration Pravastatin Sodium 40 mg 02/01/18 21:00 02/04/18 21:44 Pravachol PO 40 mg HS HOLDEN Administration Sodium Chloride 2 ml 01/30/18 09:00 02/05/18 08:51 Ns Flush IV.FLUSH 2 ml BID HOLDEN Administration Objective Remarks: GENERAL: Older male sitting in chair at bedside in no obvious distress SKIN: Warm and dry. HEAD: Normocephalic. EYES: No scleral icterus. No injection or drainage. NECK: Supple, trachea midline. CARDIOVASCULAR: +S1/S2. RESPIRATORY: Lung sounds diminished posteriorly. Breathing unlabored at rest. GASTROINTESTINAL: Abdomen soft, non-tender, nondistended. EXTREMITIES: No cyanosis, 1+ bilateral edema. MUSCULOSKELETAL: Adequate muscle tone. NEUROLOGICAL: No obvious focal deficit. Awake, alert, and oriented x3. Assessment/Plan - Plan This is a pleasant 62-year-old gentleman, who presented to the hospital complaining of shortness of breath. He has a history of cardiomyopathy and his ejection fraction is 30%. He is currently admitted for an exacerbation of congestive heart failure. He is awaiting heart catheterization today. Hematology has been consulted for polycythemia. This is likely related to his heavy cigarette smoking. Plan: 1. Discussed with patient he can follow-up with Dr. Latham in the outpatient setting to go over Jerry 2 results. 2. Clear for discharge from oncology standpoint - Attending Statement The exam, history, and the medical decision-making described in the above note were completed with the assistance of the mid-level provider. I reviewed and agree with the findings presented. I attest that I had a [id number] encounter with the patient on the same day, and personally performed and documented my assessment and findings in the medical record. wants to go home. Ambulatory. Jerry- 2 ordered. FU in clinic 4-6 weeks. sign off.
== END 2018-02-05 15:43 | disposition home or self-care (01) ==
LOC: NEPC 20:25 → NEDA 20:25 → NEPHCDU 01-30 01:57
PROVIDERS: ADMIT Hospitalist; ATTEND Hospitalist